=== PATIENT | male | born 1955 | race Caucasian/White ===

== ENCOUNTER 2024-10-19 11:59 | Emergency (ER) | payer MEDICARE, SELFPAY ==
[2024-10-19] VITALS (10 sets, daily range): BP systolic 192–240; BP diastolic 85–118; PULSE 83–111; TEMP 36.8; O2SAT 94–100; BMI 33.3
--- NOTE | 2024-10-19 | XR_ITS ---
The [address] [address] Patient Name: HORACIO JEONG MRN: [id number] date: 1955 Sex: M Assigned Patient Location: ER Current Patient Location: ED.MAIN Accession/Order Number: [id number] Exam Date: 10/19/2024 12:32 Report Date: 10/19/2024 13:02 At the request of: KALEY LINDER Procedure: XR chest 1V EXAM: XR chest 1V HISTORY: CHEST PAIN COMPARISON: Chest radiograph dated 01/11/2021. TECHNIQUE: AP erect portable view of the chest performed. FINDINGS: The trachea is midline. Stable mild prominence of the cardiac silhouette. Stable mild atheromatous calcification at the aortic arch. Hilar shadows are stable and unremarkable. There is no consolidation, pleural effusion or pulmonary vascular congestion. There is no pneumothorax there is no osseous abnormality. XR/XR chest 1V IMPRESSION: There is no acute cardiopulmonary process. Electronically authenticated by: FRANKLIN VILLARREAL Date: 10/19/2024 13:02
--- NOTE | 2024-10-19 12:32 | ED_ITS ---
HPI - Chest Pain General Chief Complaint: Chest Pain Stated Complaint: CHEST AND ARM PAIN Time Seen by Provider: 10/19/24 12:20 Source: patient and family Mode of arrival: walk-in Limitations: no limitations History of Present Illness HPI narrative: This patient is here with his complaining of chest pain off and on last night. He actually had this earlier in the week and was a patient in a different emergency room. He was not admitted. He was worked up and told follow-up with the primary care doctor. He did follow-up with primary care doctor and advised to have some outpatient blood test done. Today the pain seemed to be a little bit worse. It lasts about 5 minutes and goes away but at one time it was so severe he was actually nauseated and vomiting. He does not have a previous history of coronary artery disease but he does hypertension. Does not have any neurological conditions. He is not any recent surgery or procedures. Medications has not been changed recently. When he arrived here, the drive from [employer] and he had some discomfort but when he got here he was not having it. Related Data Home Medications ?Medication ?Instructions ?Recorded ?Confirmed allopurinol 100 mg tablet 200 mg PO DAILY 10/19/24 10/19/24 lisinopril 20 mg tablet 20 mg PO DAILY 10/19/24 10/19/24 pantoprazole 40 mg tablet,delayed 40 mg PO DAILY 10/19/24 10/19/24 release (Protonix) Allergies Allergy/AdvReac Type Severity Reaction Status Date / Time No Known Drug Allergies Allergy Verified 10/19/24 12:05 [facility] Social History Little interest or pleasure in doing things: not at all Feeling down, depressed, or hopeless: not at all Exam Narrative Exam Narrative: Patient was seen on arrival and his initial twelve-lead EKG did not show any acute abnormalities. 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 Repeat EKG was done at that time and confirmed my suspicion that this was in fact a emma nary event. A call was then immediately placed to interventional list Dr. Hairston in [place]. With the patient's permission I did send both his EKGs to Dr. Hairston who concurs that this is a coronary syndrome. We had already started the patient on nitroglycerin, heparin and Dr. Hairston also advises Brilinta. [facility] was called. All this happened nearly immediately. Continues examination his lungs were clear with no wheeze rales or rhonchi, heart sounds are normal with no S3-S4 or murmur. Portable chest x-ray did not show any widening of the mediastinum or abnormalities of his lungs. His extremities did not show any evidence of swelling edema phlebitis or erythema. Neurological examination was intact with no focal neurological findings or deficits. Constitutional Vital Signs, click to edit/add: Last Vital Signs Temp 98.3 F 10/19/24 12:06 Pulse 83 10/19/24 12:06 Resp 20 10/19/24 12:06 BP 192/85 H 10/19/24 12:06 Pulse Ox 98 10/19/24 12:06 O2 Del Method Room Air 10/19/24 12:06 Course Vital Signs Vital signs: Vital Signs Temperature 98.3 F 10/19/24 12:06 Pulse Rate 83 10/19/24 12:06 Respiratory Rate 20 10/19/24 12:06 Blood Pressure 192/85 H 10/19/24 12:06 Pulse Oximetry 98 10/19/24 12:06 Oxygen Delivery Method Room Air 10/19/24 12:06 Temperature 98.3 F 10/19/24 12:06 Pulse Rate 83 10/19/24 12:06 Respiratory Rate 20 10/19/24 12:06 Blood Pressure 192/85 H 10/19/24 12:06 Pulse Oximetry 98 10/19/24 12:06 Oxygen Delivery Method Room Air 10/19/24 12:06 MDM - Chest Pain MDM Narrative Medical decision making narrative: During the interview process this patient had EKG changes that are consistent with acute coronary syndrome. His history was extremely suspicious. There does not appear to be evidence of a dissection at this time. Interventionalists is excepted patient for immediate transfer and [facility] has been called immediately. Patient will be started on heparin given Brilinta and aspirin. A/P defibrillation pads were placed prophylactically. It was explained to the patient and his the necessity for transfer to an acute care facility with cardiac intervention. They are in agreement. ECG Data Attestation: I personally reviewed and interpreted this ECG as follows: (Initial EKG did not show any evidence of arrhythmia or abnormal ST segments. However second EKG shows elevation inferior lateral wall.) Critical Care Time Critical Care Time Total Critical Care Time: 45 Discharge Plan Discharge Chief Complaint: Chest Pain Clinical Impression: ST elevation (STEMI) myocardial infarction Patient Disposition: [facility] Time of Disposition Decision: 12:45 Mode of Transportation: [facility] Prescriptions / Home Meds: No Action lisinopril 20 mg tablet 20 mg PO DAILY pantoprazole [Protonix] 40 mg tablet,delayed release (DR/EC) 40 mg PO DAILY allopurinol 100 mg tablet 200 mg PO DAILY Print Language: Lithuanian Referrals: Chris Levi MD [Primary Care Provider] - 1 week
[2024-10-19] MEDS: TICAGRELOR 90 MG TABLET 180 MG PO (12:38)
[2024-10-19] MEDS: ASPIRIN 81 MG TAB.CHEW 162 MG PO (12:38)
[2024-10-19] MEDS: NITROGLYCERIN IN 5 % DEXTROSE 50 MG/250 ML INFUS..BTL IV (12:39)
[2024-10-19] MEDS: HEPARIN SODIUM 25,000 UNIT/500 ML D5W IV.SOLN 20 UNIT IV (12:58)
[2024-10-19] MEDS: HEPARIN SODIUM (PORCINE) 5,000 UNIT/ML VIAL 4000 UNIT IV (12:58)
[2024-10-19 13:22] LABS: Basophils Percent Auto 0.3 % (0.2-2.0); Eosinophils Absolute Auto 0.1 10^3/uL (0.0-0.7); Eosinophils Percent Auto 1.2 % (0.9-7.0); Hematocrit 43.7 % (42.0-54.0); Hemoglobin 15.4 g/dL (14.0-18.0); Immature Granulocytes Abs Auto 0.07 10^3/uL (0.00-0.03); Immature Granulocytes Pct Auto 0.7 % (0.0-0.5); Lymphocytes Absolute Auto 1.2 10^3/uL (1.2-3.8); Lymphocytes Percent Auto 11.7 % (20.5-60.0); Mean Corpuscular HGB Conc 35.2 g/dL (29.9-35.2); Mean Corpuscular Hemoglobin 31.8 pg (25.9-34.0); Mean Corpuscular Volume 90.3 fL (80.0-94.0); Mean Platelet Volume 10.5 fL (9.5-13.5); Monocytes Absolute Auto 0.8 10^3/uL (0.3-0.8); Monocytes Percent Auto 7.8 % (1.7-12.0); Neutrophils Absolute Auto 7.8 10^3/uL (1.4-6.5); Neutrophils Percent Auto 78.3 % (43.0-75.0); Platelet Count 243 10^3/uL (150-450); Red Blood Count 4.84 10^6/uL (4.70-6.10); Red Cell Distribution Width 12.3 % (11.0-15.0)
[2024-10-19 13:32] LABS: INR 0.98; Partial Thromboplastin Time 27.8 sec (22.3-36.2); Prothrombin Time 10.4 sec (9.0-11.6)
[2024-10-19 13:37] LABS: Alanine Aminotransferase 35 U/L (16-63); Albumin Level 3.8 g/dL (3.4-5.0); Alkaline Phosphatase 52 U/L (46-116); Anion Gap 19.2; Aspartate Amino Transferase 29 U/L (15-37); BUN Creatinine Ratio 13.9; Bilirubin Total 0.8 mg/dL (0.2-1.0); Calcium 9.6 mg/dL (8.5-10.1); Carbon Dioxide 22.3 mmol/L (21.0-32.0); Chloride 96 mmol/L (98-107); Estimated GFR (African America >60 (>=60 mL/min/1.73m^2); Estimated GFR (Non-African Ame 59 (>=60 mL/min/1.73m^2); Globulin 3.9 g/dL; Glucose 152 mg/dL (74-106); Potassium 4.5 mmol/L (3.5-5.1); Sodium 133 mmol/L (136-145); Total Protein 7.7 g/dL (6.4-8.2); Troponin I High Sensitivity 51.7 pg/mL (4.0-76.1)
--- NOTE | 2024-10-19 14:59 | ECG_ITS ---
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
--- NOTE | 2024-10-19 15:00 | ECG_ITS ---
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
== END 2024-10-19 13:01 | disposition short-term general hospital (02) ==
PROVIDERS: Emergency Provider Emergency Medicine Emergency Medical Services; PCP Family Medicine
DX: I21.3 ST elevation (STEMI) myocardial infarction of unspecified site (principal); I10 Essential (primary) hypertension
CPT/HCPCS: 36415; 71045; 80053; 84484; 85025; 85610; 85730; 93005; 96365; 96375; 99285; J1644; J2305

== ENCOUNTER 2024-10-28 09:04 | Emergency (ER) | payer MEDICARE, SELFPAY ==
[2024-10-28 09:16] VITALS: BP 160/80; PULSE 90; TEMP 36.6; O2SAT 100; BMI 32.1
[2024-10-28] MEDS: HYDROCODONE/ACET 5-325 MG TABLET 1 TAB PO (11:04)
--- NOTE | 2024-10-28 11:06 | ED_ITS ---
HPI HPI - General Adult General Chief complaint: Extremity Problem, Nontraumatic Stated complaint: GOUT FLARE UP Time Seen by Provider: 10/28/24 10:26 Source: patient Mode of arrival: walk-in Limitations: physical limitation History of Present Illness HPI narrative: Patient is a 69-year-old male who is presenting to the ER today with chief complaint of bilateral great toe pain, bilateral knee discomfort, and right thumb pain. Patient was just admitted to the hospital several weeks ago at [facility] where he had a total of 6 stents placed. Patient was just discharged approximate 1 week ago, and he started taking his allopurinol again. Patient was off his allopurinol while he was at [facility]. Patient stated the last time he had a gouty flareup was approximately 1 to 2 years ago. Patient says that it usually is only 1 or 2 joints, but he feels like all his joints are flaring up at this time. Patient is very openly here for pain medication. Patient initially told me that he called his PCP Dr. Levi to get him to be seen and evaluated and he could not get in today so then he came into the ER for pain medication. At the end of patient's visit, he told me that he will call Dr. Levi to try to get an after I was going to prescribe him the medications that I did. I then asked him I thought you call Dr. Levi before he came to the ER, and he said that he did not. Either way he is not having any fever, chills, nausea or vomiting. No headache. No chest pain or shortness of breath. Patient is strictly here for arthralgia and believes that he has a gouty arthritis flareup starting. Patient is very nice along with his . Patient did tell me the story how he was at [facility] ER, then came to [facility], and that we caught his heart attack and sent on the [facility] and had 3 stents initially and then another 3 stents placed after that. Patient is very thankful to Dr. Montejo and ER staff for catching his heart attack. All systems are negative except as noted/marked. All systems reviewed and otherwise negative. Nurses note and vital signs reviewed and patient is not hypoxic. General: The patient appears well and in no apparent distress. Patient is resting comfortably on cart. Patient is not toxic, lethargic, or listless Skin: Warm, dry, no pallor noted. There is no rash noted. No petechiae, purpura. Patient does have some ecchymosis noted to his right inguinal/groin area where they did the cardiac cath, there is no palpable hematoma, no falls pseudoaneurysm, no palpable mass or hematoma, patient states the area is sore but no significant concerns at all from the patient. Patient's right wrist also has some minimal ecchymosis but no signs of any type of swelling hematoma or pseudoaneurysm. Head: Normocephalic, atraumatic Eye: Normal conjunctiva, no drainage, EOMI. PERRL Ears, Nose, Mouth, and Throat: oral mucosa is moist. Nares patent. Mouth without vesicles. Cardiovascular: Regular Rate and Rhythm, no murmur, gallop, rub Respiratory: Patient is in no distress, no accessory muscle use, lungs are clear to auscultation, no wheezing, rales or rhonchi Back: non-tender, no CVA tenderness bilaterally to percussion. No CT LS midline pain GI: no tenderness to palpation, no masses appreciated. No rebound, guarding, or rigidity noted. No distention Musculoskeletal: Patient has full range of motion of all of the extremities, patient does have some minimal redness and swelling to bilateral MTP joint, also to his right first MCP joint. Mild discomfort with flexion extension of bilateral knees. He has no areas that show any signs of septic joint. No motor, sensory, or focal neurological deficits Neurological: A&O x4, normal speech Psychiatric: Cooperative Related Data Home Medications ?Medication ?Instructions ?Recorded ?Confirmed allopurinol 100 mg tablet 200 mg PO DAILY 10/19/24 10/28/24 lisinopril 20 mg tablet 20 mg PO DAILY 10/19/24 10/28/24 pantoprazole 40 mg tablet,delayed 40 mg PO DAILY 10/19/24 10/28/24 release (Protonix) aspirin 81 mg tablet,delayed 81 mg PO DAILY 10/28/24 10/28/24 release atorvastatin 80 mg tablet 80 mg PO .EVENING 10/28/24 10/28/24 metoprolol tartrate 25 mg tablet 25 mg PO BID 10/28/24 10/28/24 nitroglycerin 0.4 mg sublingual 0.4 mg sublingual PRN CHEST PAIN 10/28/24 tablet ticagrelor 90 mg tablet (Brilinta) 90 mg PO Q12H 10/28/24 10/28/24 Previous Rx's ?Medication ?Instructions ?Recorded colchicine 0.6 mg tablet 0.6 mg PO TID #9 tabs 10/28/24 hydrocodone 5 mg-acetaminophen 325 1 tab PO Q4H PRN pain #10 tabs 10/28/24 mg tablet methylprednisolone 4 mg tablets in 4 mg PO DAILY 6 days #21 ea 10/28/24 a dose pack (Medrol (Cl[place]ton)) Allergies Allergy/AdvReac Type Severity Reaction Status Date / Time No Known Drug Allergies Allergy Verified 10/28/24 09:16 Opioid HPI Opioid Management Most Recent Opioid Data: Last Pain Scale 3 10/28/24 11:04 10/28/24 Last ED Pain Assessment 10/28/24 09:36 Last MAR Pain Assessment 10/28/24 11:04 PFSH PFSH Surgical History (Updated 10/28/24 @ 10:50 by Jorden Ledesma) H/O heart artery stent ?Z95.5 - Presence of coronary angioplasty implant and graft (ICD-10) Social History Little interest or pleasure in doing things: not at all Feeling down, depressed, or hopeless: not at all Exam Constitutional Vital Signs, click to edit/add: Last Vital Signs Temp 98 F 10/28/24 09:16 Pulse 82 10/28/24 11:09 Resp 18 10/28/24 11:09 BP 130/78 10/28/24 11:09 Pulse Ox 99 10/28/24 11:09 O2 Del Method Room Air 10/28/24 11:09 Course Vital Signs Vital signs: Vital Signs Temperature 98 F 10/28/24 09:16 Pulse Rate 90 10/28/24 09:16 Respiratory Rate 20 10/28/24 09:16 Blood Pressure 160/80 H 10/28/24 09:16 Pulse Oximetry 100 10/28/24 09:16 Temperature 98 F 10/28/24 09:16 Pulse Rate 82 10/28/24 11:09 Respiratory Rate 18 10/28/24 11:09 Blood Pressure 130/78 10/28/24 11:09 Pulse Oximetry 99 10/28/24 11:09 Oxygen Delivery Method Room Air 10/28/24 11:09 Medical Decision Making MDM Narrative Medical decision making narrative: Patient is sent home with colchicine short-term, Salter Path and Medrol Dosepak. Patient not diabetic. Patient will call Dr. Levi. Patient may have some other underlying room with have rheumatologic or orthopedic concern because he has so many different joints involved, the patient says that he is certain it is because he was off his allopurinol for a week when he was in the hospital and now that he is back on his allopurinol now it was not soon enough and is trying to stop a gouty significant attack before it starts because he has been having more pain yesterday and today. Patient thankful for help and will follow-up with PCP. Patient and agree with this plan that we have a disposition. Discharge Plan Discharge Chief Complaint: Extremity Problem, Nontraumatic Clinical Impression: Arthralgia Patient Disposition: Home, Self-Care Time of Disposition Decision: 11:01 Condition: Fair Prescriptions / Home Meds: New hydrocodone-acetaminophen 5-325 mg tablet 1 tab PO Q4H PRN (Reason: pain) Qty: 10 0RF methylprednisolone [Medrol (Cl[place])] 4 mg tablets,dose pack 4 mg PO DAILY 6 Days Qty: 21 0RF Rx Instructions: as directed colchicine 0.6 mg tablet 0.6 mg PO TID Qty: 9 0RF Rx Instructions: Take 1 tablet, repeat 1 tablet every hour, max 3 daily for gouty arthritis/joint pain No Action lisinopril 20 mg tablet 20 mg PO DAILY pantoprazole [Protonix] 40 mg tablet,delayed release (DR/EC) 40 mg PO DAILY allopurinol 100 mg tablet 200 mg PO DAILY aspirin 81 mg tablet,delayed release (DR/EC) 81 mg PO DAILY atorvastatin 80 mg tablet 80 mg PO .EVENING metoprolol tartrate 25 mg tablet 25 mg PO BID nitroglycerin 0.4 mg tablet, sublingual 0.4 mg sublingual PRN Brilinta 90 mg tablet 90 mg PO Q12H Rx Instructions: FOR 30 DAYS Print Language: Puerto Rican Instructions: Gout (ED), Arthralgia (ED) Additional Instructions: Follow-up with your PCP for additional pain medication if needed. Follow-up with specific sales and merchandising associate as discussed. Take Tylenol every 4 hours to help with pain. If you are having severe pain, substitute a Salter Path tablet instead of Tylenol. Do not take Tylenol and Salter Path at the same time, you may actually take too much Tylenol at 1 setting or in 1 day. Maximum Tylenol dose of Tylenol is 3000 mg a day. Referrals: Chris Levi MD [Primary Care Provider] - 1 week Discharge Date/Time: 10/28/24 11:16
[2024-10-28 11:09] VITALS: BP 130/78; PULSE 82; O2SAT 99
== END 2024-10-28 11:16 | disposition home or self-care (01) ==
PROVIDERS: Emergency Provider Emergency Medicine; PCP Family Medicine
DX: M25.572 Pain in left ankle and joints of left foot (principal); M25.571 Pain in right ankle and joints of right foot; M25.562 Pain in left knee; M25.561 Pain in right knee; M25.541 Pain in joints of right hand; Z95.5 Presence of coronary angioplasty implant and graft; I25.2 Old myocardial infarction
CPT/HCPCS: 99283

== ENCOUNTER 2024-11-29 14:06 | Outpatient (OUT) | payer MEDICARE, SELFPAY ==
--- OUTSIDE RECORDS SUMMARY | 2024-11-29 14:21 | XMS_ITS | CCD ---
Author Organization [facility] Care Team Providers Care Braille Teacher Name Role Phone Unavailable Primary Care Provider UnavailSandra Ballesteros MD Primary Care Unavailable Alonso Strong Admitting Unavailable Alonso Srtong Attending Unavailable Sandra Foster MD Primary Care Unavailable Prabhakar Meza Admitting Unavailable Prabhakar Meza Attending Unavailable Sandra Foster MD Primary Care Provider [phone] SANDRA FOSTER Attending Unavailable SANDRA FOSTER Referring Unavailable SANDRA FOSTER Primary Care Unavailable SANDRA FOSTER Primary Care Unavailable HARDEEP ESTEVES Attending Unavailable Sandra Foster MD Primary Care Provider Melva Smallwood Admitting Unavailable Melva Smallwood Attending Unavailable Dorcas Levi Primary Care Unavailable Dede Jameson Unavailable Dorcas Levi MD Primary Care Provider Poncho HEALY, [place] Unavailable Unavailable JORDEN SMALLWOOD Attending Unavailable DORCAS LEVI Primary Care Unavailable Medications Current Medications Medication Drug Class(es) Dates Sig (Normalized) Sig (Original) acetaminophen 325 mg / HYDROcodone bitartrate 5 mg oral tablet (1 source) Opioid Agonist Start: 10-28-2024 take 1 tablet by mouth every four hours as needed HYDROcodone-acetam inophen ([place]) 5-325 mg tablet Take 1 tablet by mouth every 4 hours if needed for pain. 10/28/2024 Active allopurinol 100 mg oral tablet (5 sources) Xanthine Oxidase Inhibitor Start: 10-17-2024 take 2 tablets by mouth in the morning, then take 1 tablet by mouth once daily in the morning allopurinoL (ZYLOPRIM) 100 mg tablet Indications: Gout, unspecified cause, unspecified chronicity, unspecified site TAKE 2 TABLETS BY MOUTH IN THE MORNING FOR 90 DAYS THEN TAKE 1 TABLET ONCE DAILY EVERY MORNING 180 tablet 10/17/2024 Active Start: 07-26-2023 End: 02-09-2024 allopurinoL (ZYLOPRIM) 100 m g tablet Indications: Gout, unspecified cause, unspecified chronicity, unspecified site TAKE 1 TABLET EVERY MORNING 90 tablet 2 02/09/2024 Active take 1 tablet by mora th once daily allopurinol (Zyloprim) 300 mg tablet Take 1 tablet (300 mg) by mouth once daily. Active aspirin 81 mg delayed release oral tablet (1 source) Platelet Aggregation Inhibitor, Nonsteroidal Anti-inflammatory Drug take 1 tablet by mouth once daily aspirin 81 mg EC tablet Take 1 tablet (81 mg) by mouth once daily. Active atorvastatin 80 mg oral tablet (1 source) HMG-CoA Reductase Inhibitor take 1 tablet by mouth once daily atorvastatin (Lipitor) 80 mg tablet Take 1 tablet (80 mg) by mouth once daily. Active colchicine 0.6 mg oral tablet (1 source) Start: End: take 1 tablet by mouth once daily colchicine 0.6 mg tablet Indications: Acute gout, unspecified cause, unspecified site Take 1 tablet (0.6 mg) by mouth once daily for 10 days. 10 tablet 11/27/2024 12/07/2024 Active famotidine 20 mg oral tablet (2 sources) Histamine-2 Receptor Antagonist Start: End: take 1 tablet by mouth in the morning famotidine (PEPCID) 20 mg tablet Take 1 tablet (20 mg total) by mouth in the morning for 30 days. 30 tablet 10/08/2024 11/07/2024 Active lisinopril 20 mg oral tablet (6 sources) Angiotensin Converting Enzyme Inhibitor Start: take 1 tablet by mouth in the morning lisinopriL (PRINIVIL,ZESTRIL) 20 mg tablet Indications: Primary hypertension Take 1 tablet (20 mg total) by mouth in the morning. 90 tablet 5 06/03/2024 Active Start: 03-21-2023 take 1 tablet by mora th in the morning lisinopriL (PRINIVIL,ZESTRIL) 20 mg tablet Indications: Primary hypertension Take 1 tablet (20 mg total) by mouth in the morning. 90 tablet 5 03/21/2023 Active methylPREDNISolone 4 mg oral tablet (2 sources) Corticosteroid Start: 04-25-2024 take 1 tablet by mouth in the morning methylPREDNISolone (MEDROL, SAURAV,) 4 mg tablet Take 1 tablet (4 mg total) by mouth in the morning. follow package directions. 21 tablet 04/25/2024 Active metoprolol tartrate 25 mg oral tablet (1 source) beta-Adrenergic Leydi take 1 tablet by mouth once daily metoprolol tartrate (Lopressor) 25 mg tablet Take 1 tablet (25 mg) by mouth once daily. Active naproxen 500 mg oral tablet (3 sources) Nonsteroidal Anti-inflammatory Drug Start: 05-27-2024 take 1 tablet by mouth in the morning, then take 1 tablet by mouth at mealtime naproxen (NAPROSYN) 500 mg tablet Indications: Acute myofascial strain of lumbosacral region, initial encounter Take 1 tablet (500 mg total) by mouth in the morning and 1 tablet (500 mg total) in the evening. Take with meals. 180 tablet 2 05/27/2024 Active Start: 03-21-2023 take 1 tablet by mora th in the morning, then take 1 tablet by mouth at mealtime naproxen (NAPROSYN) 500 mg tablet Indications: Acute myofascial strain of lumbosacral region, initial encounter Take 1 tablet (500 mg total) by mouth in the morning and 1 tablet (500 mg total) in the evening. Take with meals. 180 tablet 2 03/21/2023 Active nitroglycerin 0.4 mg sublingual tablet (1 source) Nitrate Vasodilator nitroglycerin (Nitrostat) 0.[address] 1 tablet (0.4 mg) under the tongue every 5 minutes if needed for chest pain. Active ondansetron 4 mg disintegrating oral tablet (2 sources) Serotonin-3 Receptor Antagonist Start: ondansetron ODT (ZOFRAN ODT) 4 mg disintegrating tablet Indications: Gastroesophageal reflux disease without esophagitis Dissolve 1 tablet (4 mg total) on tongue every 8 (eight) hours as needed for nausea for up to 10 doses. 10 tablet 10/08/2024 Active pantoprazole 40 mg delayed release oral tablet (1 source) Proton Pump Inhibitor Start: 12-14-2 024 take 1 tablet by mouth once daily before mealtime pantoprazole (ProtoNix) 40 mg EC tablet Take 1 tablet (40 mg) by mouth once daily in the morning. Take before meals. 10/19/2024 Active ticagrelor 90 mg oral tablet (1 source) take 1 tablet by mouth twice daily ticagrelor (Brilinta) 90 mg tablet Take 1 tablet (90 mg) by mouth 2 times a day. Active Completed/Discontinued Medications Medication Drug Class(es) Dates Sig (Normalized) Sig (Original) acetaminophen 325 mg / oxyCODONE hydrochloride 5 mg oral tablet (4 sources) Opioid Agonist Start: 06-14-2023 End: 07-07-2023 take 1 tablet by mouth three times daily as needed for pain oxyCODONE-acetami nophen (PERCOCET) 5-325 mg tablet Indications: Injury of left foot, initial encounter Take 1 tablet by mouth three times daily as needed for pain. 28 tablet 0 07/07/2023 Active Comment on above: Take 1 tablet by mora th three times daily as needed for pain. Problems Active Problems Problem Classification Problem Date Documented Da te Episodic/Chronic Acute myocardial infarction (6 sources) ST elevation (STEMI) myocardial infarction involving other coronary artery of inferior wall; Translations: [Myocardial infarction] Onset: 10-19-2024 11-27-2024 Chronic Alcohol-related disorders (4 sources) Alcohol dependence; Translations: [Alcohol dependence, uncomplicated] Onset: 01-27-2023 01-27-2023 Chronic Coronary atherosclerosis and other heart disease (7 sources) Coronary arteriosclerosis; Translations: [Atherosclerotic heart disease of [place] coronary artery without angina pectoris] Onset: 10-25-2024 Resolved: 10-25-2024 11-27-2024 Chronic Coronary atherosclerosis and other heart disease (5 sources) Patient post percutaneous transluminal coronary angioplasty; Translations: [Coronary angioplasty status] Onset: 10-25-2024 11-27-2024 Episodic Crushing injury or internal injury (4 sources) Crush injury of left foot; Translations: [Crushing injury of left foot, initial encounter] Onset: 08-01-2023 08-01-2023 Episodic Disorders of lipid metabolism (4 sources) Mixed hyperlipidemia; Translations: [Mixed hyperlipidemia] Onset: 10-25-2024 11-27-2024 Chronic Esophageal disorders (2 sources) Gastro-esophageal reflux disease without esophagitis; Translations: [Gastro-esophageal reflux disease without esophagitis] Onset: 10-08-2024 Chronic Essential hypertension (9 sources) Hypertensive disorder; Translations: [Essential (primary) hypertension] Onset: 01-26-2023 01-26-2023 Chronic Gout and other crystal arthropathies (9 sources) Gout; Translations: [Gout, unspecified] Onset: 01-26-2023 02-09-2024 Chronic Nonspecific chest pain (4 sources) Other chest pain; Translations: [Chest pain, unspecified] Onset: 10-08-2024 Episodic Nutritional deficiencies (1 source) Vitamin D deficiency, unspecified; Translations: [Vitamin D deficiency, unspecified] Onset: 07-24-2024 Chronic Other injuries and conditions due to external causes (2 sources) Injury of left foot; Translations: [Unspecified injury of left foot, initial encounter] 07-07-2023 Episodic Other nutritional; endocrine; and metabolic disorders (3 sources) Morbid obesity; Translations: [Morbid (severe) obesity due to excess calories] Onset: 01-26-2023 01-26-2023 Chronic Other nutritional; endocrine; and metabolic disorders (1 source) Morbid (severe) obesity due to excess calories; Translations: [Morbid (severe) obesity due to excess calories] Onset: 01-26-2023 Chronic Other nutritional; endocrine; and metabolic disorders (2 sources) Body mass index 30+ - obesity; Translations: [Body mass index (BMI) 32.0-32.9, adult] Onset: 11-27-2024 11-27-2024 Chronic Other nutritional; endocrine; and metabolic disorders (2 sources) Body mass index (BMI) 32.0-32.9, adult; Translations: [Body mass index (BMI) 32.0-32.9, adult] Onset: 11-27-2024 Chronic Other screening for suspected conditions (not mental disorders or infectious disease) (2 sources) Encounter for screening for malignant neoplasm of prostate; Translations: [Encounter for screening for malignant neoplasm of colon] Onset: 07-24-2024 Episodic Screening and history of mental health and substance abuse codes (4 sources) Ex-smoker; Translations: [Personal history of nicotine dependence] Onset: 11-27-2024 11-27-2024 Episodic Unclassified (1 source) Annual Exam Onset: 07-24-2024 Past or Other Problems Problem Classification Problem Date Documented Da te Episodic/Chronic Mood disorders (3 sources) Mood disorders Onset: 01-26-2023 Resolved: 07-24-2024 01-26-2023 Unclassified (1 source) Onset: 11-27-2024 11-27-2024 Results Test Name Value Interpretation Reference Range Facility Basic Metabolic Panelon 10-06 Anion gap [Moles/Vol] 13.2 mmol/L Normal 6.0-15.0 [facility] Comment on above: Performed By: #### C BC, BMP #### [facility] [address] [place] [address] [place] Calcium [Mass/Vol] 9.1 mg/dL Normal 8.6-10.3 [facility] Comment on above: Performed By: #### C BC, BMP #### [facility] [address] [place] [address] [place] Chloride [Moles/Vol] 104 mmol/L Normal 98-107 [facility] Comment on above: Performed By: #### C BC, BMP #### [facility] [address] [place] [address] [place] CO2 [Moles/Vol] 22.8 mmol/L Normal 21.0-31.0 [facility] Comment on above: Performed By: #### C BC, BMP #### [facility] [address] [place] [id number] [place] Creatinine [Mass/Vol] 1.05 mg/dL Normal 0.70-1.30 [facility] Comment on above: Performed By: #### C BC, BMP #### [facility] [address] [place] [address] [place] Creatinine Clr Calc Pharmacy 84.20 Normal [facility] Comment on above: Result Comment: PERF ORMED BY: [place] [address] PATHOLOGIST SENIOR SOFTWARE ANALYST AMELIA BROWN M.D. Performed By: #### C BC, BMP #### [place] [address] [place] GFR/1.73 sq M.predicted MDRD (S/P/Bld) [Vol rate/Area] mL/min/{1.73_m2} Normal [facility] Comment on above: Performed By: #### C BC, BMP #### [address] Glucose [Mass/Vol] 106 mg/dL High 70-100 [facility] Comment on above: Result Comment: [place] Glucose Reference Range is dependent on time and content of last meal. Glucose of more than 200 mg/dL in a nonstressed, ambulatory subject supports the diagnosis of Diabetes Mellitus. ADA recommended reference range Performed By: #### C BC, BMP #### [address] Potassium [Moles/Vol] 4.0 mmol/L Normal 3.5-5.1 [facility] Comment on above: Performed By: #### C BC, BMP #### [address] Sodium [Moles/Vol] 136 mmol/L Normal 136-145 [facility] Comment on above: Performed By: #### C BC, BMP #### [address] Urea nitrogen [Mass/Vol] 24 mg/dL Normal 7-25 [facility] Comment on above: Performed By: #### C BC, BMP #### [address] Complete Blood Count Auto Di ffon 10-22-2024 Basophils (Bld) [#/Vol] 0.1 10*3/uL Normal 0.0-0.2 [facility] Comment on above: Result Comment: PERF ORMED BY: [place] [address] PATHOLOGIST SENIOR SOFTWARE ANALYST AMELIA BROWN M.D. Performed By: #### C BC, BMP #### [place] [address] [place] Basophils/100 WBC (Bld) 0.5 % Normal . [facility] Comment on above: Performed By: #### C BC, BMP #### [facility] [address] [place] [address] [place] Eosinophils (Bld) [#/Vol] 0.2 10*3/uL Normal 0.0-0.45 [facility] Comment on above: Performed By: #### C BC, BMP #### [facility] [address] [place] [id number] [place] Eosinophils/100 WBC (Bld) 2.1 % Normal . [facility] Comment on above: Performed By: #### C BC, BMP #### [facility] [address] Erythrocyte distribution width (RBC) [Ratio] 13.3 % Normal 12.0-14.8 [facility] Comment on above: Performed By: #### C BC, BMP #### [address] Hematocrit (Bld) [Volume fraction] 41.1 % Normal 38.8-50.0 [facility] Comment on above: Performed By: #### C BC, BMP #### [place] [address] [place] Hemoglobin (Bld) [Mass/Vol] 14.0 g/dL Normal 13.0-17.0 [facility] Comment on above: Performed By: #### C BC, BMP #### [place] [address] [place] Lymphocytes (Bld) [#/Vol] 1.2 10*3/uL Normal 1.00-4.8 [facility] Comment on above: Performed By: #### C BC, BMP #### [place] [id number] [place] Lymphocytes/100 WBC (Bld) 11.3 % Normal . [facility] Comment on above: Performed By: #### C BC, BMP #### [address] MCH (RBC) [Entitic mass] 32.3 pg Normal 27.5-35.2 [facility] Comment on above: Performed By: #### C BC, BMP #### [address] MCV (RBC) [Entitic vol] 94.4 fL Normal 83.5-101 [facility] Comment on above: Performed By: #### C BC, BMP #### [address] Mean Corpuscular HGB Conc 34.2 g/dL Normal 32.5-35.6 [facility] Comment on above: Performed By: #### C BC, BMP #### [address] Monocytes (Bld) [#/Vol] 1.2 10*3/uL High 0.0-0.8 [facility] Comment on above: Performed By: #### C BC, BMP #### [address] Monocytes/100 WBC (Bld) 10.9 % Normal . [facility] Comment on above: Performed By: #### C BC, BMP #### [address] Neutrophils (Bld) [#/Vol] 8.1 10*3/uL High 1.8-7.7 [facility] Comment on above: Performed By: #### C BC, BMP #### [address] Neutrophils/100 WBC (Bld) 75.2 % Normal . [facility] Comment on above: Performed By: #### C BC, BMP #### [address] NRBC% 0.0 /100{WBC} Normal 0-0.5 [facility] Comment on above: Performed By: #### C BC, BMP #### [address] Platelet mean volume (Bld) [Entitic vol] 8.1 fL Normal 6.6-10.1 [facility] Comment on above: Performed By: #### C BC, BMP #### [facility] [address] [place] [id number] [facility] Platelets (Bld) [#/Vol] 213 10*3/uL Normal 150-450 [facility] Comment on above: Performed By: #### C BC, BMP #### [facility] [address] RBC (Bld) [#/Vol] 4.35 10*6/uL Normal 3.90-5.60 [facility] Comment on above: Performed By: #### C BC, BMP #### [facility] [address] [place] [id number] [facility] WBC (Bld) [#/Vol] 10.8 10*3/uL High 4.1-10.5 [facility] Comment on above: Performed By: #### C BC, BMP #### [facility] [address] ECG 12 lead ECGon 10-22-2024 ECG 12 lead ECG [facility] [place] [address] [place] [address] Electrocardiograph Report Signed Patient: Horacio Soto MR#: [id number] : 1955 Acct:[id number] Age/Sex: 69 / M ADM Date: 10/19/24 Loc: Room: [address] [place] [address] Type: DIS IN Attending Dr: Melva Smallwood DO Ordering Provider: Melva Smallwood DO Date of Service: 10/22/24 ECG/ECG 12 lead ECG: Post Angioplasty Procedure in AM Copies to: Test Reason : Blood Pressure : 133/63 mmHG Vent. Rate : 61 BPM Atrial Rate : 61 BPM P-R Int : 138 ms QRS Dur : 102 ms QT Int : 402 ms P-R-T Axes : 42 -37 81 degrees QTcB Int : 404 ms Sinus rhythm with marked sinus arrhythmia Left axis deviation Left ventricular hypertrophy with repolarization abnormality Abnormal ECG When compared with ECG of 21-Oct-2024 07:12, Vent. rate has decreased by 38 bpm Confirmed by HUSEYIN HART [facility] ([id number][facility] on 10/22/2024 3:27:50 PM Referred By: Electronically Signed By: WILFREDO WING MD [facility] Transcribed By: MUS Signed By Wilfredo Wing MD, [facility] 10/22/24 1527 Normal [facility] Troponin I High Sensitivityo n 10-22-2024 Troponin I High Sensitivity 576.8 pg/mL Off scale high 0.0-20.0 [facility] Comment on above: Result Comment: Crit ical Result : Called to and read back by: TOÑO SUMMERS at: 10/22/2024 05:36:18 by:NEPTALI PERFORMED BY: [place] [address] PATHOLOGIST SENIOR SOFTWARE ANALYST AMELIA BROWN M.D. Performed By: #### G DONNA #### Point of Care testing , Basic Metabolic Panelon 10-06 Anion gap [Moles/Vol] 16.4 mmol/L High 6.0-15.0 [facility] Comment on above: Performed By: #### C BC, BMP #### [address] Calcium [Mass/Vol] 9.8 mg/dL Normal 8.6-10.3 [facility] Comment on above: Performed By: #### C BC, BMP #### [address] Chloride [Moles/Vol] 103 mmol/L Normal 98-107 [facility] Comment on above: Performed By: #### C BC, BMP #### [address] CO2 [Moles/Vol] 21.1 mmol/L Normal 21.0-31.0 [facility] Comment on above: Performed By: #### C BC, BMP #### [address] Creatinine [Mass/Vol] 1.07 mg/dL Normal 0.70-1.30 [facility] Comment on above: Performed By: #### C BC, BMP #### [place] [address] [place] Creatinine Clr Calc Pharmacy 82.63 Normal [facility] Comment on above: Result Comment: PERF ORMED BY: [place] [address] PATHOLOGIST SENIOR SOFTWARE ANALYST AMELIA BROWN M.D. Performed By: #### C BC, BMP #### [place] [address] [place] GFR/1.73 sq M.predicted MDRD (S/P/Bld) [Vol rate/Area] mL/min/{1.73_m2} Normal [facility] Comment on above: Performed By: #### C BC, BMP #### [address] Glucose [Mass/Vol] 125 mg/dL High 70-100 [facility] Comment on above: Result Comment: [place] Glucose Reference Range is dependent on time and content of last meal. Glucose of more than 200 mg/dL in a nonstressed, ambulatory subject supports the diagnosis of Diabetes Mellitus. ADA recommended reference range Performed By: #### C BC, BMP #### [address] Potassium [Moles/Vol] 4.5 mmol/L Normal 3.5-5.1 [facility] Comment on above: Performed By: #### C BC, BMP #### [address] Sodium [Moles/Vol] 136 mmol/L Normal 136-145 [facility] Comment on above: Performed By: #### C BC, BMP #### [place] [address] [place] Urea nitrogen [Mass/Vol] 19 mg/dL Normal 7-25 [facility] Comment on above: Performed By: #### C BC, BMP #### [address] Complete Blood Count Auto Di ffon 10-21-2024 Basophils (Bld) [#/Vol] 0.1 10*3/uL Normal 0.0-0.2 [facility] Comment on above: Result Comment: PERF ORMED BY: [place] [address] PATHOLOGIST SENIOR SOFTWARE ANALYST AMELIA BROWN M.D. Performed By: #### C BC, BMP #### [address] Basophils/100 WBC (Bld) 0.8 % Normal . [facility] Comment on above: Performed By: #### C BC, BMP #### [address] Eosinophils (Bld) [#/Vol] 0.1 10*3/uL Normal 0.0-0.45 [facility] Comment on above: Performed By: #### C BC, BMP #### [address] Eosinophils/100 WBC (Bld) 0.9 % Normal . [facility] Comment on above: Performed By: #### C BC, BMP #### [address] Erythrocyte distribution width (RBC) [Ratio] 13.2 % Normal 12.0-14.8 [facility] Comment on above: Performed By: #### C BC, BMP #### [address] Hematocrit (Bld) [Volume fraction] 42.1 % Normal 38.8-50.0 [facility] Comment on above: Performed By: #### C BC, BMP #### [address] Hemoglobin (Bld) [Mass/Vol] 14.4 g/dL Normal 13.0-17.0 [facility] Comment on above: Performed By: #### C BC, BMP #### [address] Lymphocytes (Bld) [#/Vol] 1.8 10*3/uL Normal 1.00-4.8 [facility] Comment on above: Performed By: #### C BC, BMP #### [address] Lymphocytes/100 WBC (Bld) 13.4 % Normal . [facility] Comment on above: Performed By: #### C BC, BMP #### [address] MCH (RBC) [Entitic mass] 32.0 pg Normal 27.5-35.2 [facility] Comment on above: Performed By: #### C BC, BMP #### [address] MCV (RBC) [Entitic vol] 93.6 fL Normal 83.5-101 [facility] Comment on above: Performed By: #### C BC, BMP #### [address] Mean Corpuscular HGB Conc 34.2 g/dL Normal 32.5-35.6 [facility] Comment on above: Performed By: #### C BC, BMP #### [address] Monocytes (Bld) [#/Vol] 1.5 10*3/uL High 0.0-0.8 [facility] Comment on above: Performed By: #### C BC, BMP #### [address] Monocytes/100 WBC (Bld) 11.4 % Normal . [facility] Comment on above: Performed By: #### C BC, BMP #### [address] Neutrophils (Bld) [#/Vol] 9.7 10*3/uL High 1.8-7.7 [facility] Comment on above: Performed By: #### C BC, BMP #### [address] Neutrophils/100 WBC (Bld) 73.5 % Normal . [facility] Comment on above: Performed By: #### C BC, BMP #### [address] NRBC% 0.1 /100{WBC} Normal 0-0.5 [facility] Comment on above: Performed By: #### C MELISSA, BMP #### [address] Platelet mean volume (Bld) [Entitic vol] 7.9 fL Normal 6.6-10.1 [facility] Comment on above: Performed By: #### C MELISSA, BMP #### [address] Platelets (Bld) [#/Vol] 270 10*3/uL Normal 150-450 [facility] Comment on above: Performed By: #### C MELISSA, BMP #### [address] RBC (Bld) [#/Vol] 4.50 10*6/uL Normal 3.90-5.60 [facility] Comment on above: Performed By: #### C MELISSA, BMP #### [address] WBC (Bld) [#/Vol] 13.3 10*3/uL High 4.1-10.5 [facility] Comment on above: Performed By: #### C MELISSA, BMP #### [address] ECG 12 lead ECGon 10-21-2024 ECG 12 lead ECG [facility] [place] [address] [place] [address] Electrocardiograph Report Signed Patient: Horacio Soto MR#: [id number] 875 : 1955 Acct:[id number] Age/Sex: 69 / M ADM Date: 10/19/24 Loc: Room: [address] [place] [address] Type: ADM IN Attending Dr: Melva Smallwood DO Ordering Provider: Melva Smallwood DO Date of Service: 10/21/24 ECG/ECG 12 lead ECG: inflat stemi Copies to: Test Reason : Blood Pressure : 125/68 mmHG Vent. Rate : 99 BPM Atrial Rate : 99 BPM P-R Int : 142 ms QRS Dur : 96 ms QT Int : 336 ms P-R-T Axes : 52 -38 82 degrees QTcB Int : 431 ms Normal sinus rhythm Left axis deviation Left ventricular hypertrophy with repolarization abnormality Abnormal ECG When compared with ECG of 21-Oct-2024 01:20, (Unconfirmed) No significant change was found Confirmed by WILFREDO WING MD, FACC ([id number]) on 10/21/2024 12:01:24 PM Referred By: Electronically Signed By: WILFREDO WING MD [facility] Transcribed By: MUS Signed By Wilfredo Wing MD, FACC 10/21/24 1201 Normal [facility] ECG 12 lead ECG [facility] [place] [address] Electrocardiograph Report Signed Patient: Horacio Soto MR#: [id number] 875 : 1955 Acct:[id number] Age/Sex: 69 / M ADM Date: 10/19/24 Loc: Room: [address] [place] [address] Type: DIS IN Attending Dr: Melva Smallwood DO Ordering Provider: Melva Smallwood DO Date of Service: 10/21/24 ECG/ECG 12 lead ECG: prn nursing routine Copies to: Test Reason : Blood Pressure : 157/74 mmHG Vent. Rate : 67 BPM Atrial Rate : 67 BPM P-R Int : 138 ms QRS Dur : 98 ms QT Int : 386 ms P-R-T Axes : 45 -29 65 degrees QTcB Int : 407 ms Normal sinus rhythm with sinus arrhythmia Moderate voltage criteria for LVH, may be normal variant Borderline ECG When compared with ECG of 20-Oct-2024 08:01, T wave inversion no longer evident in Inferior leads Confirmed by WILFREDO WING MD, FACC ([id number]) on 10/26/2024 9:23:13 AM Referred By: Electronically Signed By: WILFREDO WING MD, FACC Transcribed By: MUS Signed By Wilfredo Wing MD, [facility] 10/26/24 0923 Normal [facility] ECH echo transthoracicon ECH echo transthoracic [facility] Main [address] [address] Echocardiogram Signed Patient: Horacio Soto MR#: [id number] 875 : 1955 Acct:[id number] Age/Sex: 69 / M ADM Date: 10/19/24 Loc: Room: [address] [place] [address] Type: ADM IN Attending Dr: Melva Smallwood DO Ordering Provider: Melva Smallwood DO Date of Service: 10/20/24 ECH/ECH echo transthoracic: inferolateral stemi Copies to: Wilfredo Wing MD, FACC Melva Smallwood DO Weight: 245 lb Performed By: Myesha Harris RDCS BSA: 2.3 m2 BP: 180/84 mmHg HR: 71 Reason For Study: inferolateral stemi History: OR, HTN, Former smoker Interpretation Summary The left ventricular size, thickness and function are normal Ejection Fraction = 60-65%. A variety of Doppler measurements indicate impaired left ventricular relaxation, which is associated with grade I/IV or mild diastolic dysfunction. The left ventricular wall motion is normal. There is no prior echocardiogram noted for this patient. Procedure/Quality: A two-dimensional transthoracic echocardiogram with color flow, Doppler and injection of contrast agent Definity was performed. The study was technically good in quality. There is no prior echocardiogram noted for this patient. Left Ventricle: The left ventricular size, thickness and function are normal. Ejection Fraction = 60-65%. A variety of Doppler measurements indicate impaired left ventricular relaxation, which is associated with grade I/IV or mild diastolic dysfunction. The left ventricular wall motion is normal. Left Atrium: The left atrium appears normal in size. The atrial septum appears normal. Right Atrium: The right atrium appears normal in size. Right Ventricle: The right ventricle is normal in size and function. Aortic Valve: The aortic valve is mildly sclerotic. Mitral Valve: The mitral valve is mildly sclerotic. Tricuspid Valve: The tricuspid valve is normal in structure. Pulmonic Valve: The pulmonic valve is not well visualized. Arteries: The aortic root is normal size. Pericardium/Pleura: No pericardial effusion seen. There is no pleural effusion. IVC/Hepatic Veins: The IVC is normal in size with an inspiratory collapse of greater then 50%, suggesting normal right atrial pressure. Miscellaneous: No thrombus, vegetation or mass is seen. Measurements with Normals IVSd: 1.1 cm (0.7-1.1 cm)LVIDd: 4.4 cm (3.7-5.4 cm) LVPWd: 1.0 cm (0.7-1.1 cm)LVIDs: 2.3 cm (2.3-3.6 cm) LA dimension: 3.7 cm (2.3-4.0 cm)Ao root diam: 3.3 cm(2.0-3.6 cm) asc Aorta Diam: 2.9 cm(2.1-3.4cm) Doppler with Normals RVSP(TR): 24.5 mmHg (18-35mmHg) LV V1 max: 107.0 cm/sec (0.7-1.7m/s)MV E max delonte: 68.3 cm/sec(0.8-1.3m/s) MV A max delonte: 122.0 cm/sec(0.0-0.0m/s) MV E/A: 0.56 (<1.5) MMode/2D Measurements Calculations RVDd: 3.5 cm FS: 47.7 % Ao root area: LVOT diam: 2.0 cm TAPSE: 2.3 cm EDV(Teich): 8.6 cm2 LVOT area: 3.1 cm2 RV S Delonte: 87.7 ml 10.6 cm/sec ESV(Teich): 18.1 ml EF(Teich): 79.3 % __ LVLd ap4: 8.2 cm SV(MOD-sp4): LAV(MOD-sp4): LA A2 area: 25.8 cm2 EDV(MOD-sp4): 69.7 ml 65.3 ml 128.0 ml LAV(MOD-sp2): LA A4 area: 23.7 cm2 LVLs ap4: 6.8 cm 76.8 ml LA length (vol): ESV(MOD-sp4): 6.7 cm 58.3 ml LA vol: 77.2 ml EF(MOD-sp4): 54.5 % LA vol index: 33.6 ml/m2 Doppler Measurements Calculations MV dec time: E/E' lat: 6.0 MV dec slope: Ao V2 max: 0.22 sec E/E' med: 11.6 152.0 cm/sec 309.0 cm/sec2 Ao max P.2 mmHg Ao mean P.0 mmHg Ao V2 mean: 113.0 cm/sec Ao V2 VTI: 30.9 cm ANSHU(I,D): 2.3 cm2 ANSHU(V,D): 2.2 cm2 __ LV V1 max PG: TV max PG: TR max delonte: 4.6 mmHg 22.0 mmHg 232.0 cm/sec LV V1 mean PG: TR max P.5 mmHg 2.0 mmHg RAP systole: 3.0 mmHg LV V1 mean: 69.6 cm/sec LV V1 VTI: 22.8 cm Transcribed By: CINTIA Performed At: 10/21/24 1245 Signed By: Wilfredo Wing MD, [facility] 10/21/24 1847 Normal [facility] Glucose Poct Glucometerson 1 12-22-2023 Glucose [Mass/Vol] 124 mg/dL Normal [facility] Comment on above: Result Comment: [place] Glucose Reference Range is dependent on time and content of last meal. Glucose of more than 200 mg/dL in a nonstressed, ambulatory subject supports the diagnosis of Diabetes Mellitus. PERFORMED BY: [facility] Cristino [place] [address] PATHOLOGIST SENIOR SOFTWARE ANALYST AMELIA BROWN M.D. Performed By: #### G LULS #### Point of Care testing , Troponin I High Sensitivityo n 10-21-2024 Troponin I High Sensitivity 868.9 pg/mL Off scale high 0.0-20.0 [facility] Comment on above: Result Comment: Crit ical Result : Called to and read back by: TOÑO SUMMERS at: 10/21/2024 02:42:46 by:NEPTALI PERFORMED BY: [facility] [address] [place] [address] PATHOLOGIST SENIOR SOFTWARE ANALYST AMELIA BROWN M.D. Performed By: #### H S TROP #### [address] Basic Metabolic Panelon 12- Anion gap [Moles/Vol] 14.5 mmol/L Normal 6.0-15.0 [facility] Comment on above: Performed By: #### C BC, BMP #### [address] Calcium [Mass/Vol] 9.7 mg/dL Normal 8.6-10.3 [facility] Comment on above: Performed By: #### C BC, BMP #### [address] Chloride [Moles/Vol] 102 mmol/L Normal 98-107 [facility] Comment on above: Performed By: #### C BC, BMP #### [address] CO2 [Moles/Vol] 22.9 mmol/L Normal 21.0-31.0 [facility] Comment on above: Performed By: #### C BC, BMP #### [address] Creatinine [Mass/Vol] 0.95 mg/dL Normal 0.70-1.30 [facility] Comment on above: Performed By: #### C BC, BMP #### [place] [address] [place] Creatinine Clr Calc Pharmacy 93.82 Normal [facility] Comment on above: Performed By: #### C BC, BMP #### [place] [address] [place] GFR/1.73 sq M.predicted MDRD (S/P/Bld) [Vol rate/Area] mL/min/{1.73_m2} Normal [facility] Comment on above: Performed By: #### C BC, BMP #### [address] Glucose [Mass/Vol] 119 mg/dL High 70-100 [facility] Comment on above: Result Comment: [place] Glucose Reference Range is dependent on time and content of last meal. Glucose of more than 200 mg/dL in a nonstressed, ambulatory subject supports the diagnosis of Diabetes Mellitus. ADA recommended reference range Performed By: #### C BC, BMP #### [address] Potassium [Moles/Vol] 4.4 mmol/L Normal 3.5-5.1 [facility] Comment on above: Performed By: #### C BC, BMP #### [address] Sodium [Moles/Vol] 135 mmol/L Low 136-145 [facility] Comment on above: Performed By: #### C BC, BMP #### [address] Urea nitrogen [Mass/Vol] 17 mg/dL Normal 7-25 [facility] Comment on above: Performed By: #### C BC, BMP #### [address] Complete Blood Count Auto Di ffon 10-20-2024 Basophils (Bld) [#/Vol] 0.1 10*3/uL Normal 0.0-0.2 [facility] Comment on above: Result Comment: PERF ORMED BY: [place] [address] PATHOLOGIST SENIOR SOFTWARE ANALYST AMELIA BROWN M.D. Performed By: #### C BC, BMP #### [place] [address] [place] Basophils/100 WBC (Bld) 0.5 % Normal . [facility] Comment on above: Performed By: #### C BC, BMP #### [address] Eosinophils (Bld) [#/Vol] 0.0 10*3/uL Normal 0.0-0.45 [facility] Comment on above: Performed By: #### C BC, BMP #### [address] Eosinophils/100 WBC (Bld) 0.3 % Normal . [facility] Comment on above: Performed By: #### C BC, BMP #### [address] Erythrocyte distribution width (RBC) [Ratio] 13.5 % Normal 12.0-14.8 [facility] Comment on above: Performed By: #### C BC, BMP #### [address] Hematocrit (Bld) [Volume fraction] 40.3 % Normal 38.8-50.0 [facility] Comment on above: Performed By: #### C BC, BMP #### [address] Hemoglobin (Bld) [Mass/Vol] 13.9 g/dL Normal 13.0-17.0 [facility] Comment on above: Performed By: #### C BC, BMP #### [address] Lymphocytes (Bld) [#/Vol] 0.9 10*3/uL Low 1.00-4.8 [facility] Comment on above: Performed By: #### C BC, BMP #### [address] Lymphocytes/100 WBC (Bld) 7.3 % Normal . [facility] Comment on above: Performed By: #### C BC, BMP #### [address] MCH (RBC) [Entitic mass] 32.1 pg Normal 27.5-35.2 [facility] Comment on above: Performed By: #### C BC, BMP #### [address] MCV (RBC) [Entitic vol] 93.2 fL Normal 83.5-101 [facility] Comment on above: Performed By: #### C BC, BMP #### [address] Mean Corpuscular HGB Conc 34.5 g/dL Normal 32.5-35.6 [facility] Comment on above: Performed By: #### C BC, BMP #### [address] Monocytes (Bld) [#/Vol] 1.1 10*3/uL High 0.0-0.8 [facility] Comment on above: Performed By: #### C BC, BMP #### [address] Monocytes/100 WBC (Bld) 9.2 % Normal . [facility] Comment on above: Performed By: #### C BC, BMP #### [address] Neutrophils (Bld) [#/Vol] 9.9 10*3/uL High 1.8-7.7 [facility] Comment on above: Performed By: #### C BC, BMP #### [address] Neutrophils/100 WBC (Bld) 82.7 % Normal . [facility] Comment on above: Performed By: #### C BC, BMP #### [address] NRBC% 0.1 /100{WBC} Normal 0-0.5 [facility] Comment on above: Performed By: #### C BC, BMP #### [address] Platelet mean volume (Bld) [Entitic vol] 8.2 fL Normal 6.6-10.1 [facility] Comment on above: Performed By: #### C BC, BMP #### [address] Platelets (Bld) [#/Vol] 257 10*3/uL Normal 150-450 [facility] Comment on above: Performed By: #### C BC, BMP #### [address] RBC (Bld) [#/Vol] 4.33 10*6/uL Normal 3.90-5.60 [facility] Comment on above: Performed By: #### C BC, BMP #### [address] WBC (Bld) [#/Vol] 12.0 10*3/uL High 4.1-10.5 [facility] Comment on above: Performed By: #### C BC, BMP #### [address] Basophils (Bld) [#/Vol] 0.1 10*3/uL Normal 0.0-0.2 [facility] Comment on above: Result Comment: PERF ORMED BY: [place] [address] PATHOLOGIST SENIOR SOFTWARE ANALYST AMELIA BROWN M.D. Performed By: #### G LULS #### Point of Care testing , Basophils/100 WBC (Bld) 0.7 % Normal . [facility] Comment on above: Performed By: #### G LULS #### Point of Care testing , Eosinophils (Bld) [#/Vol] 0.1 10*3/uL Normal 0.0-0.45 [facility] Comment on above: Performed By: #### G LULS #### Point of Care testing , Eosinophils/100 WBC (Bld) 0.4 % Normal . [facility] Comment on above: Performed By: #### G LULS #### Point of Care testing , Erythrocyte distribution width (RBC) [Ratio] 13.2 % Normal 12.0-14.8 [facility] Comment on above: Performed By: #### G LULS #### Point of Care testing , Hematocrit (Bld) [Volume fraction] 42.8 % Normal 38.8-50.0 [facility] Comment on above: Performed By: #### G LULS #### Point of Care testing , Hemoglobin (Bld) [Mass/Vol] 14.6 g/dL Normal 13.0-17.0 [facility] Comment on above: Performed By: #### G LULS #### Point of Care testing , Lymphocytes (Bld) [#/Vol] 1.2 10*3/uL Normal 1.00-4.8 [facility] Comment on above: Performed By: #### G LULS #### Point of Care testing , Lymphocytes/100 WBC (Bld) 10.3 % Normal . [facility] Comment on above: Performed By: #### G LULS #### Point of Care testing , MCH (RBC) [Entitic mass] 31.9 pg Normal 27.5-35.2 [facility] Comment on above: Performed By: #### G LULS #### Point of Care testing , MCV (RBC) [Entitic vol] 93.6 fL Normal 83.5-101 [facility] Comment on above: Performed By: #### G LULS #### Point of Care testing , Mean Corpuscular HGB Conc 34.1 g/dL Normal 32.5-35.6 [facility] Comment on above: Performed By: #### G LULS #### Point of Care testing , Monocytes (Bld) [#/Vol] 1.2 10*3/uL High 0.0-0.8 [facility] Comment on above: Performed By: #### G LULS #### Point of Care testing , Monocytes/100 WBC (Bld) 9.9 % Normal . [facility] Comment on above: Performed By: #### G LULS #### Point of Care testing , Neutrophils (Bld) [#/Vol] 9.3 10*3/uL High 1.8-7.7 [facility] Comment on above: Performed By: #### G LULS #### Point of Care testing , Neutrophils/100 WBC (Bld) 78.7 % Normal . [facility] Comment on above: Performed By: #### G LULS #### Point of Care testing , NRBC% 0.0 /100{WBC} Normal 0-0.5 [facility] Comment on above: Performed By: #### G LULS #### Point of Care testing , Platelet mean volume (Bld) [Entitic vol] 7.9 fL Normal 6.6-10.1 [facility] Comment on above: Performed By: #### G LULS #### Point of Care testing , Platelets (Bld) [#/Vol] 252 10*3/uL Normal 150-450 [facility] Comment on above: Performed By: #### G LULS #### Point of Care testing , RBC (Bld) [#/Vol] 4.57 10*6/uL Normal 3.90-5.60 [facility] Comment on above: Performed By: #### G LULS #### Point of Care testing , WBC (Bld) [#/Vol] 11.9 10*3/uL High 4.1-10.5 [facility] Comment on above: Performed By: #### G LULS #### Point of Care testing , Comprehensive Metabolic Pane van 10-20-2024 Albumin [Mass/Vol] 4.4 g/dL Normal 3.5-5.7 [facility] Comment on above: Performed By: #### G MARELYLS #### Point of Care testing , Albumin/Globulin [Mass ratio] 1.5 {ratio} Normal [facility] Comment on above: Performed By: #### G LULS #### Point of Care testing , ALP [Catalytic activity/Vol] 37 U/L Normal 34-104 [facility] Comment on above: Performed By: #### G LULS #### Point of Care testing , ALT [Catalytic activity/Vol] 23 U/L Normal 7-52 [facility] Comment on above: Performed By: #### G LULS #### Point of Care testing , Anion gap [Moles/Vol] 16.1 mmol/L High 6.0-15.0 [facility] Comment on above: Performed By: #### G LULS #### Point of Care testing , AST [Catalytic activity/Vol] 23 U/L Normal 13-39 [facility] Comment on above: Performed By: #### G LULS #### Point of Care testing , Bilirubin [Mass/Vol] 0.8 mg/dL Normal 0.3-1.0 [facility] Comment on above: Performed By: #### G LULS #### Point of Care testing , Calcium [Mass/Vol] 9.7 mg/dL Normal 8.6-10.3 [facility] Comment on above: Performed By: #### G LULS #### Point of Care testing , Chloride [Moles/Vol] 100 mmol/L Normal 98-107 [facility] Comment on above: Performed By: #### G LULS #### Point of Care testing , CO2 [Moles/Vol] 22.3 mmol/L Normal 21.0-31.0 [facility] Comment on above: Performed By: #### G LULS #### Point of Care testing , Creatinine [Mass/Vol] 1.01 mg/dL Normal 0.70-1.30 [facility] Comment on above: Performed By: #### G LULS #### Point of Care testing , Creatinine Clr Calc Pharmacy 88.24 Normal [facility] Comment on above: Performed By: #### G LULS #### Point of Care testing , GFR/1.73 sq M.predicted MDRD (S/P/Bld) [Vol rate/Area] mL/min/{1.73_m2} Normal [facility] Comment on above: Performed By: #### G LULS #### Point of Care testing , Globulin (S) [Mass/Vol] 3.0 g/dL Normal [facility] Comment on above: Performed By: #### G LULS #### Point of Care testing , Glucose [Mass/Vol] 121 mg/dL High 70-100 [facility] Comment on above: Result Comment: [place] Glucose Reference Range is dependent on time and content of last meal. Glucose of more than 200 mg/dL in a nonstressed, ambulatory subject supports the diagnosis of Diabetes Mellitus. ADA recommended reference range Performed By: #### G LULS #### Point of Care testing , Potassium [Moles/Vol] 4.4 mmol/L Normal 3.5-5.1 [facility] Comment on above: Performed By: #### G LULS #### Point of Care testing , Protein [Mass/Vol] 7.4 g/dL Normal 6.4-8.9 [facility] Comment on above: Performed By: #### G LULS #### Point of Care testing , Sodium [Moles/Vol] 134 mmol/L Low 136-145 [facility] Comment on above: Performed By: #### G LULS #### Point of Care testing , Urea nitrogen [Mass/Vol] 17 mg/dL Normal 7-25 [facility] Comment on above: Performed By: #### G LULS #### Point of Care testing , ECG 12 lead ECGon 10-20-2024 ECG 12 lead ECG [facility] Main [place] [address] [place] [address] Electrocardiograph Report Signed Patient: Horacio Soto MR#: [id number] 875 : 1955 Acct:[id number] Age/Sex: 69 / M ADM Date: 10/19/24 Loc: Room: [address] [place] [address] Type: ADM IN Attending Dr: Melva Smallwood DO Ordering Provider: Melva Smallwood DO Date of Service: 10/20/24 ECG/ECG 12 lead ECG: Post Angioplasty Procedure in AM Copies to: Test Reason : Blood Pressure : 180/82 mmHG Vent. Rate : 82 BPM Atrial Rate : 82 BPM P-R Int : 142 ms QRS Dur : 98 ms QT Int : 378 ms P-R-T Axes : 53 -41 18 degrees QTcB Int : 441 ms Normal sinus rhythm with sinus arrhythmia Left axis deviation Moderate voltage criteria for LVH, may be normal variant Abnormal ECG When compared with ECG of 20-Oct-2024 02:12, (Unconfirmed) ST depression has replaced ST elevation in Inferior leads T wave inversion now evident in Inferior leads T wave amplitude has decreased in Anterior leads T wave inversion no longer evident in Lateral leads Confirmed by CLEMENTE BAILEY MD ([id number]) on 10/20/2024 1:09:42 PM Referred By: Electronically Signed By: CLEMENTE BAILEY MD Transcribed By: MUS Signed By Clemente Bailey MD 1 12/21/23 1309 Normal [facility] ECG 12 lead ECG [facility] Main [place] [id number] Electrocardiograph Report Signed Patient: Horacio Soto MR#: [id number] 875 : 1955 Acct:[id number] Age/Sex: 69 / M ADM Date: 10/19/24 Loc: 4C Room: [address] [place] [address] Type: ADM IN Attending Dr: Melva Smallwood DO Ordering Provider: Melva Smallwood DO Date of Service: 10/20/24 ECG/ECG 12 lead ECG: pt evauation Copies to: Test Reason : Blood Pressure : 199/93 mmHG Vent. Rate : 78 BPM Atrial Rate : 78 BPM P-R Int : 152 ms QRS Dur : 96 ms QT Int : 380 ms P-R-T Axes : 58 -22 91 degrees QTcB Int : 433 ms Normal sinus rhythm Left ventricular hypertrophy with repolarization abnormality ST elevation, consider inferolateral injury or acute infarct ACUTE OR / STEMI Consider right ventricular involvement in acute inferior infarct Abnormal ECG When compared with ECG of 20-Oct-2024 01:36, No significant change was found Confirmed by CLEMENTE BAILEY MD ([id number]) on 10/20/2024 5:22:45 PM Referred By: Electronically Signed By: CLEMENTE BAILEY MD Transcribed By: MUS Signed By Clemente Bailey MD 1 12/21/[address] [facility] ECG 12 lead ECG [facility] Main [place] [id number] Electrocardiograph Report Signed Patient: Horacio Soto MR#: [id number] 875 : 1955 Acct:[id number] Age/Sex: 69 / M ADM Date: 10/19/24 Loc: 4C Room: [address] [place] [address] Type: ADM IN Attending Dr: Melva Smallwood DO Ordering Provider: Melva Smallwood DO Date of Service: 10/20/24 ECG/ECG 12 lead ECG: inflat stemi Copies to: Test Reason : Blood Pressure : 158/76 mmHG Vent. Rate : 74 BPM Atrial Rate : 74 BPM P-R Int : 154 ms QRS Dur : 102 ms QT Int : 384 ms P-R-T Axes : 61 18 95 degrees QTcB Int : 426 ms Normal sinus rhythm ST elevation, consider inferior injury or acute infarct ACUTE OR / STEMI Consider right ventricular involvement in acute inferior infarct Abnormal ECG When compared with ECG of 20-Oct-2024 01:35, (Unconfirmed) QRS axis shifted right ST elevation now present in Inferior leads T wave inversion more evident in Lateral leads Confirmed by CLEMENTE BAILEY MD ([id number]) on 10/20/2024 1:09:30 PM Referred By: Electronically Signed By: CLEMENTE BAILEY MD Transcribed By: MUS Signed By Clemente Bailey MD 1 12/21/23 1309 Normal [facility] Lipid Panelon 10-20-2024 Cholesterol [Mass/Vol] 130 mg/dL Low 140-200 [facility] Comment on above: Result Comment: Chol less than 200 mg/dl low risk Chol 201-239 mg/dl borderline risk Chol 240 mg/dl and greater high risk Performed By: #### G LULS #### Point of Care testing , Cholesterol in HDL [Mass/Vol] 74 mg/dL Normal 23-92 [facility] Comment on above: Result Comment: HDL CHOL ATP-III CLASSIFICATION Cardiovascular Risk HDL > or equal to 60 mg/dL LOW HDL < 40 mg/dL HIGH Performed By: #### G LULS #### Point of Care testing , Cholesterol.total/Ch olesterol in HDL [Mass ratio] 1.8 {ratio} Normal <5.0 [facility] Comment on above: Result Comment: PERF ORMED BY: [facility] [address] [place] [address] PATHOLOGIST SENIOR SOFTWARE ANALYST AMELIA BROWN M.D. Performed By: #### G LULS #### Point of Care testing , LDL Cholesterol,Calculat ed 42 mg/dL Normal 0-100 [facility] Comment on above: Result Comment: LDL ATP III CLASSIFICATION LDL less than 100 mg/dL Optimal LDL 100-129 mg/dL Near or above optimal LDL 130-159 mg/dL Borderline high LDL 160-189 mg/dL High LDL greater than 189 mg/dL Very high Performed By: #### G LULS #### Point of Care testing , Triglyceride w/Reflex 68 mg/dL Normal 0-149 [facility] Comment on above: Result Comment: TRIG ATP III CLASSIFICATION TRIG less than 150 mg/dL Normal TRIG 150-199 mg/dL Borderline high TRIG 200-500 mg/dL High TRIG greater than 500 mg/dL Very high Standard traceable to the Center for Disease Conrtrol and Prevention (CDC) test method. Performed By: #### G LULS #### Point of Care testing , VLDL CHOLESTEROL 13 mg/dL Normal [facility] Comment on above: Performed By: #### G LULS #### Point of Care testing , Magnesiumon 10-20-2024 Magnesium [Mass/Vol] 1.8 mg/dL Low 1.9-2.7 [facility] Comment on above: Result Comment: PERF ORMED BY: [place] [address] PATHOLOGIST SENIOR SOFTWARE ANALYST AMELIA BROWN M.D. Performed By: #### G LULS #### Point of Care testing , Troponin I High Sensitivityo n 10-20-2024 Troponin I High Sensitivity 738.9 pg/mL Off scale high 0.0-20.0 [facility] Comment on above: Result Comment: Crit ical Result : Called to and read back by: SENDY THURMAN at: 10/20/2024 05:35:02 by:[id number] PERFORMED BY: [facility] [address] [place] [address] PATHOLOGIST SENIOR SOFTWARE ANALYST AMELIA BROWN M.D. Performed By: #### G LULS #### Point of Care testing , Troponin I High Sensitivity 652.2 pg/mL Off scale high 0.0-20.0 [facility] Comment on above: Result Comment: Crit ical Result : Called to and read back by: SENDY THURMAN at: 10/20/2024 03:06:12 by:[id number] PERFORMED BY: [address] [address] PATHOLOGIST SENIOR SOFTWARE ANALYST AMELIA BROWN M.D. Performed By: #### G LULS #### Point of Care testing , ECG 12 lead ECGon 10-19-2024 ECG 12 lead ECG [facility] Main [address] [address] Electrocardiograph Report Signed Patient: Horacio Soto MR#: [id number] : 1955 Acct:[id number] Age/Sex: 69 / M ADM Date: 10/19/24 Loc: Room: [address] [place] [address] Type: ADM IN Attending Dr: Melva Smallwood DO Ordering Provider: Melva Smallwood DO Date of Service: 10/19/24 ECG/ECG 12 lead ECG: Post Angioplasty Procedure Copies to: Test Reason : Blood Pressure : 136/72 mmHG Vent. Rate : 70 BPM Atrial Rate : 70 BPM P-R Int : 150 ms QRS Dur : 102 ms QT Int : 378 ms P-R-T Axes : 73 -34 -7 degrees QTcB Int : 408 ms Normal sinus rhythm Left axis deviation Marked T wave abnormality, consider inferior ischemia Abnormal ECG No previous ECGs available Confirmed by CLEMENTE BAILEY MD ([id number]) on 10/20/2024 1:09:11 PM Referred By: Electronically Signed By: CLEMENTE BAILEY MD Transcribed By: MUS Signed By Clemente Bailey MD 1 12/21/23 1309 Normal [facility] Troponin I High Sensitivityo n 10-19-2024 Troponin I High Sensitivity 149.0 pg/mL Off scale high 0.0-20.0 [facility] Comment on above: Result Comment: Crit ical Result : Called to and read back by: SENDY THURMAN at: 10/19/2024 21:36:24 by:[id number] PERFORMED BY: [place] [id number] PATHOLOGIST SENIOR SOFTWARE ANALYST AMELIA BROWN M.D. Performed By: #### H S TROP #### [address] Troponin I High Sensitivity 120.2 pg/mL Off scale high 0.0-20.0 [facility] Comment on above: Result Comment: Crit ical Result : Called to and read back by: DEREK CORREA at: 10/19/2024 20:01:05 by:[id number] PERFORMED BY: [id number] PATHOLOGIST SENIOR SOFTWARE ANALYST AMELIA BROWN M.D. Performed By: #### C BC, BMP #### [address] Troponin I High Sensitivity 107.3 pg/mL Off scale high 0.0-20.0 [facility] Comment on above: Result Comment: Crit ical Result : Called to and read back by: ADAMA GOMEZ at: 10/19/2024 17:41:39 by:ALIYAH PERFORMED BY: [place] [id number] PATHOLOGIST SENIOR SOFTWARE ANALYST AMELIA BROWN M.D. Performed By: #### C BC, BMP #### [address] Troponin I High Sensitivity 94.8 pg/mL Off scale high 0.0-20.0 [facility] Comment on above: Result Comment: Crit ical Result : Called to and read back by: ADAMA GOMEZ at: 10/19/2024 16:21:23 by:ALIYAH PERFORMED BY: [place] [address] PATHOLOGIST SENIOR SOFTWARE ANALYST AMELIA BROWN M.D. Performed By: #### C BC, BMP #### [address] CBC AND AUTO DIFFon 10-08-20 24 ABSOLUTE BASOPHIL 0.1 X10E9/L Normal 0.0-0.2 [facility] Comment on above: Performed By: #### C BCA, CMP, 3040-3, 62608-4, 16060-0, THYR, 35372-9 #### [facility] ([id number]) [address] [place] [address] ABSOLUTE NEUTROPHIL 5.6 X10E9/L Normal 1.5-6.6 [facility] Comment on above: Performed By: #### C BCA, CMP, 3040-3, 31485-3, 33750-6, THYR, 59240-5 #### [facility] ([id number]) [address] [place] [address] Basophils/100 WBC (Bld) 0.7 % Normal [facility] Comment on above: Performed By: #### C BCA, CMP, 3040-3, 89077-1, 26555-4, THYR, 30356-7 #### [facility] ([id number]) [address] [place] [address] Eosinophils (Bld) [#/Vol] 0.3 10*3/uL Normal 0.0-0.4 [facility] Comment on above: Performed By: #### C BCA, CMP, 3040-3, 83158-0, 11011-9, THYR, 81895-2 #### [facility] ([id number]) [address] [place] [address] Eosinophils/100 WBC (Bld) 3.7 % Normal [facility] Comment on above: Performed By: #### C BCA, CMP, 3040-3, 73223-3, 24568-2, THYR, 96189-2 #### [facility] ([id number]) [address] [place] [address] Erythrocyte distribution width (RBC) [Ratio] 13.6 % Normal 11.5-15.0 [facility] Comment on above: Performed By: #### C BCA, CMP, 3040-3, 88044-1, 09529-4, THYR, 65972-1 #### [facility] ([id number]) [address] [place] [address] 27464 Hematocrit (Bld) [Volume fraction] 43.6 % Normal 39-49 [facility] Comment on above: Performed By: #### C BCA, CMP, 3040-3, 48545-4, 67870-4, THYR, 86570-0 #### [facility] ([id number]) [address] [place] [address] Hemoglobin (Bld) [Mass/Vol] 15.0 g/dL Normal 13.0-17.0 [facility] Comment on above: Performed By: #### C BCA, CMP, 3040-3, 07286-9, 93466-5, THYR, 28904-4 #### [facility] ([id number]) [address] [place] [address] Lymphocytes (Bld) [#/Vol] 1.8 10*3/uL Normal 1.0-3.5 [facility] Comment on above: Performed By: #### C BCA, CMP, 3040-3, 65432-3, 37493-4, THYR, 42649-2 #### [facility] ([id number]) [address] [place] [address] Lymphocytes/100 WBC (Bld) 20.5 % Normal [facility] Comment on above: Performed By: #### C BCA, CMP, 3040-3, 71100-5, 54330-8, THYR, 57122-3 #### [facility] ([id number]) [address] [place] [address] 57666 MCH (RBC) [Entitic mass] 32.3 pg Normal 27-34 [facility] Comment on above: Performed By: #### C BCA, CMP, 3040-3, 79667-0, 12885-5, THYR, 68859-2 #### [facility] ([id number]) [address] [place] [address]32 MCHC (RBC) [Mass/Vol] 34.5 g/dL Normal 32-36 [facility] Comment on above: Performed By: #### C BCA, CMP, 3040-3, 87921-8, 22366-8, THYR, 85440-0 #### [facility] ([id number]) [address] [place] [address] 17393 MCV (RBC) [Entitic vol] 94 fL Normal 80-100 [facility] Comment on above: Performed By: #### C BCA, CMP, 3040-3, 65352-0, 34680-4, THYR, 56594-7 #### [facility] ([id number]) [address] [place] [address] Monocytes (Bld) [#/Vol] 0.8 10*3/uL Normal 0-0.9 [facility] Comment on above: Performed By: #### C BCA, CMP, 3040-3, 51882-6, 98539-2, THYR, 58052-2 #### [facility] ([id number]) [address] [place] [address]3624 Monocytes/100 WBC (Bld) 9.3 % Normal [facility] Comment on above: Performed By: #### C BCA, CMP, 3040-3, 39924-3, 97821-5, THYR, 38251-8 #### [facility] ([id number]) [address] [place] [address] Neutrophils/100 WBC (Bld) 65.8 % Normal [facility] Comment on above: Performed By: #### C BCA, CMP, 3040-3, 77521-6, 72446-4, THYR, 89068-8 #### [facility] ([id number]) [address] [place] [address] Platelet mean volume (Bld) [Entitic vol] 8.1 fL Normal 7-12 [facility] Comment on above: Performed By: #### C BCA, CMP, 3040-3, 32951-7, 43043-2, THYR, 84107-0 #### [facility] ([id number]) [address] [place] [address] 26908 Platelets (Bld) [#/Vol] 260 10*3/uL Normal 150-450 [facility] Comment on above: Performed By: #### C BCA, CMP, 3040-3, 82179-4, 90154-6, THYR, 69022-4 #### [facility] ([id number]) [address] [place] [address] 67861 RBC COUNT 4.65 X10E12/L Normal 4.10-5.70 [facility] Comment on above: Performed By: #### C BCA, CMP, 3040-3, 38865-3, 52363-6, THYR, 55356-1 #### [facility] ([id number]) [address] [place] [address]9943 WBC (Bld) [#/Vol] 8.5 10*3/uL Normal 4.0-11.0 [facility] Comment on above: Performed By: #### C BCA, CMP, 3040-3, 93042-8, 39612-9, THYR, 76406-2 #### [facility] ([id number]) [address] [place] [address] COMPREHENSIVE METABOLIC PANE Van 10-08-2024 Albumin [Mass/Vol] 4.7 g/dL Normal 3.2-5.3 [facility] Comment on above: Performed By: #### C BCA, CMP, 3040-3, 60614-0, 59904-8, THYR, 47180-1 #### [facility] ([id number]) [address] [place] [address] 41298 ALP [Catalytic activity/Vol] 44 U/L Normal 39-130 [facility] Comment on above: Performed By: #### C BCA, CMP, 3040-3, 71467-9, 54482-0, THYR, 98813-8 #### [facility] ([id number]) [address] [place] [address] 81612 ALT [Catalytic activity/Vol] 35 U/L Normal 0-40 [facility] Comment on above: Performed By: #### C BCA, CMP, 3040-3, 63689-3, 06398-8, THYR, 28736-7 #### [facility] ([id number]) [address] [place] [address] 71281 Anion gap [Moles/Vol] 10 mmol/L Normal 5-15 [facility] Comment on above: Performed By: #### C BCA, CMP, 3040-3, 50668-8, 13396-2, THYR, 09482-2 #### [facility] ([id number]) [address] [place] [address] 21538 AST [Catalytic activity/Vol] 36 U/L Normal 0-41 [facility] Comment on above: Performed By: #### C BCA, CMP, 3040-3, 14057-7, 67889-4, THYR, 08910-9 #### [facility] ([id number]) [address] [place] [address] 89605 Bilirubin [Mass/Vol] 1.3 mg/dL High 0.3-1.2 [facility] Comment on above: Result Comment: RESU LTS QUESTIONABLE DUE TO HEMOLYSIS Performed By: #### C BCA, CMP, 3040-3, 37119-0, 73738-2, THYR, 15647-8 #### [facility] ([id number]) [address] [place] [address] 03561 Calcium [Mass/Vol] 9.3 mg/dL Normal 8.5-10.5 [facility] Comment on above: Performed By: #### C BCA, CMP, 3040-3, 84319-5, 23289-7, THYR, 86006-1 #### [facility] ([id number]) [address] [place] [address] 48055 Chloride [Moles/Vol] 102 mmol/L Normal 98-109 [facility] Comment on above: Performed By: #### C BCA, CMP, 3040-3, 52187-4, 07951-1, THYR, 34801-1 #### [facility] ([id number]) [address] [place] [address] 44113 CO2 [Moles/Vol] 22 mmol/L Normal 22-32 [facility] Comment on above: Performed By: #### C BCA, CMP, 3040-3, 31865-8, 57013-2, THYR, 90241-2 #### [facility] ([id number]) [address] [place] [address] 00771 Creatinine [Mass/Vol] 1.10 mg/dL Normal 0.70-1.20 [facility] Comment on above: Result Comment: METH OD TRACEABLE TO IDMS STANDARD Performed By: #### C BCA, CMP, 3040-3, 39516-2, 45839-3, THYR, 31183-9 #### [facility] ([id number]) [address] [place] [address] 80269 GFR/1.73 sq M.predicted among non-blacks MDRD (S/P/Bld) [Vol rate/Area] 73 mL/min/{1.73_m2} Normal >59 [facility] Comment on above: Result Comment: Reported eGFR is based on the CKD-EPI 2020 equation that does not use a race coefficient. Performed By: #### C BCA, CMP, 3040-3, 42958-6, 03274-1, THYR, 29350-9 #### [facility] ([id number]) [address] [place] [address] 27164 Glucose [Mass/Vol] 121 mg/dL High 65-99 [facility] Comment on above: Performed By: #### C BCA, CMP, 3040-3, 81480-7, 31327-9, THYR, 68417-7 #### [facility] ([id number]) [address] [place] [address] 10475 Potassium [Moles/Vol] 5.0 mmol/L Normal 3.5-5.0 [facility] Comment on above: Result Comment: SPEC IMEN HEMOLYZED, RESULTS INCREASED Performed By: #### C BCA, CMP, 3040-3, 08501-1, 09507-4, THYR, 18660-2 #### [facility] ([id number]) [address] [place] [address] 05003 Protein [Mass/Vol] 7.9 g/dL Normal 6.0-8.0 [facility] Comment on above: Performed By: #### C BCA, CMP, 3040-3, 68448-8, 06540-8, THYR, 52689-5 #### [facility] ([id number]) [address] [place] [address] 27348 Sodium [Moles/Vol] 134 mmol/L Normal 134-146 [facility] Comment on above: Performed By: #### C BCA, CMP, 3040-3, 59835-2, 39205-4, THYR, 45843-6 #### [facility] ([id number]) [address] [place] [address] 43385 Urea nitrogen [Mass/Vol] 24 mg/dL Normal 5-27 [facility] Comment on above: Performed By: #### C BCA, CMP, 3040-3, 84142-1, 07787-6, THYR, 72424-0 #### [facility] ([id number]) [address] [place] [address] 39065 LIPASEon 10-08-2024 Lipase [Catalytic activity/Vol] 42 U/L High 17-40 [facility] Comment on above: Performed By: #### C BCA, CMP, 3040-3, 86558-9, 69275-9, THYR, 74675-3 #### [facility] ([id number]) [address] [place] [address] 43213 MAGNESIUMon 10-08-2024 Magnesium [Mass/Vol] 2.0 mg/dL Normal 1.8-2.6 [facility] Comment on above: Performed By: #### C BCA, CMP, 3040-3, 07120-7, 35638-2, THYR, 71214-5 #### [facility] ([id number]) [address] [place] [address] 28458 Natriuretic peptide B [Mass/ Vol]on 10-08-2024 Natriuretic peptide B (Bld) [Mass/Vol] 66 pg/mL Normal <100.0 [facility] Comment on above: Performed By: #### C BCA, CMP, 3040-3, 04628-3, 32662-9, THYR, 79355-7 #### [facility] ([id number]) [address] [place] [address] 25911 THYROID PROFILEon 10-08-2024 Free T4 [Mass/Vol] 1.00 ng/dL Normal 0.61-1.60 [facility] Comment on above: Result Comment: NEW REFERENCE RANGE FOR PEDIATRIC PATIENTS Performed By: #### C BCA, CMP, 3040-3, 07770-4, 96883-1, THYR, 78902-5 #### [facility] ([id number]) [address] [place] [address] 32576 TSH 1.88 uIU/mL Normal 0.49-4.67 [facility] Comment on above: Result Comment: NEW REFERENCE RANGE FOR PEDIATRIC PATIENTS Performed By: #### C BCA, CMP, 3040-3, 68935-6, 82624-6, THYR, 17659-6 #### [facility] ([id number]) [address] [place] [address] 46432 Troponin I.cardiac High sens itivity method [Mass/Vol]on 10-08-2024 1 HOUR TROP I, HIGH SENSITIVITY 4 ng/L Normal <21 [facility] Comment on above: Performed By: #### 8 9579-7 #### [facility] ([id number]) [address] [place] [address] 24884 TROPONIN I, HIGH SENSITIVITY 5 ng/L Normal <21 [facility] Comment on above: Performed By: #### C BCA, CMP, 3040-3, 85244-5, 02486-5, THYR, 50466-0 #### [facility] ([id number]) [address] [place] [address] 34925 Coding Summaryon 07-05-2023 Coding Summary [employer] 64 DxxgcmywBCu4qHr+PGhlYWQ+ QD8EPOCqE24uxNHfjK7yN5CS TElOSywgQVBQTElOSyIgbmFt QL9wkZBlVXAv IC8+VM9sLJOnHjbbwLXfg6O6 cVV8S43kzd4jTQovmPI9BFPx HnDgmknbi6gxxSp3CRyaSvmw OyBt OBKhpJ25YFA1rR08Va19dWBx nNMjg2xbcBn5YzVcHSHjAKX9 uPinJNsdn7EbEZBvS09ywHHv c2U6 LNLzyOptoGAaIdEhcLY6lC4c PUendpiaz7rvldmaGsu9cf00 lREvp2O4oRU8N6TejzI7KJEu bGQg SgjkaYJHcI2iqehcm6rizwtp WwHuPUSyXKz2PMk1GJPbjLot WbFyCG64TEO1IWZxjnVqL2Lk LWFs oMldAxZ3v2Z2Lk2XP0ECGtls T9LXLBUWQNxdqKH+RJ31vu30 W9DaBmlsVpd1JMSoCVC3hMI5 aD0n ZNPdXMvdi1E8xCC7L7ZwmhGs xe4wq6zpKDJxDTzuC31zhXZp v5R8EISprHV1LGPwqEiyFzCx aG93 Oyc+NXAduSskl5GlAxdgr8jv r8gkgPg8KannBIRqhbLjvUkv QWT1c8RfYh6qEGJcdAH2rGM3 aD0i MrVxJjP0LBngK150FyHtuZRz LeaiB11oA8CtrHJ+PHRyPjx0 QDYifEboUM4lG9EmDINmksfk bGVm xEqjSV5mIXJponqvSJAhgA6p RWTpM9h1BiXrFbA6YYpnB8Du JXBzdhrbAo52wN6hHwDtYiS4 MGlu A5GwzjI2ONWscMGtJBtyNCR7 Z69ut6M0CKIzDSFpCJY3zJR2 vQ9mqXecpnrwwIYpkAlspgHi dGlj DGkkEKyvF220RHLtuEfwMcUv ZGluZyBEYXRlOiAgMDgvMzAv MjAyMzwvdGQ+JEFuZCK0aEil PSAn bASlFQsjDp9wtEqxtCftKA5g JNAjcqetZTWbjQ0iNFTpfPYg hHqaMG2iAQKmkvvqe352ErPv MHB0 IGUwrFIdY7JdeC2yQoVaZAZz KLTwD1IngFByIHjdJ085MLnm FfP6MCQejjUfJ0JtFWDdoRon OiB0 k9M6Hw3Vo1GvubqtE9RlmVAi DiRqAngwSTx2E1TpZfnweWY+ AN50NIGdQO48HJu4GXJ9gOle PSdi AEYiQ5GeaX7zFuWjHYZhJCYi Oyc+PHRhYmxlIHdpZHRoPScx WHVxRhSexCgtKD0nIn0xVCEf LWNv uLzyfYWtDeKal9lhBIGxNJmg WC3hfLuvS7QqxCM7WPVhw3g3 Lk05Z91gC4IwaNI+PGNvbCB3 aWR0 gS3hLuKrLaB1BVtnJ741FsDl aROqTcsrt5wbz2nqsCi6SlK7 OVOyfyMcfZwdPIV1j0QiEt21 Y29s IHdpZHRoPSIxNSUiIHZhbGln sg4efN8mKq3+IPAzvYG3lOC3 nY9rUrThYpY5SAlgG447WwRb cCIv Bechs9tuj7hgjWu8GzCeEAKn kuPnlFmkQZA7h5PrIz89J6Nu cIbmm4OzIkf8fm40eRAyy9R4 bGU9 O5VqSENgpyxhrUIaxUdaQS0q DVDjupkyBHSauT8fBWYmN9w3 OxRcCzE9KCpiC4GfdkD0JQLi bGQg BHTzeSSXdL7hfmuwq9zoaxbb LwFyPACzFTd8DSj5ERXrxWmp EyEqGDS9HsJ8LFI1hLJijY1w bGln iiyoeE9nSis+KWA4uOLcxFOT HL2oQnfjvSU+RRJaTUZ0jIsc WEhvWMVmtZ5zYGEzH9i0UwIj LjA1 ZRmiM3VrycK9VRJmdQHvMICk dPEChS6fewkng1inkeafKcUz YDPsNUa3WOq4QKFwkPgzAzJl ZWZ0 ZeX3UJA4eVPxjZ8wvCgvyxyx cO6rUjh+YyxeuItzPEK2ZNy3 O0UhUzz4DZZysBgcIM1foKKc ZGlu Wd6ibWqhtIeuPD5jXCZhvjry a529PwOvk7oxFZEebAFgXEje HZH7I31fw6I7LPHkAPGjSRJ0 dGV4 eU2llRbllaoopVUojNzbglTk pLyzHHvjSPpmK926ADTrhVpg AtDrBCq9Z9XhKig3DUMmfMlu ZT0n kWBzJDgaHd0vbDwcaVxcCX4c YPHyowaxf145HhHbv9ooNWCq bOYbKNfpZPF2L42lv6P0NXZi MDAw BAU6fEW5cJ3ymCxqlyhwhRLx fHwgtyYhsSkyPBawAHwvC800 DSYoaNssWtKkbZp4Q2ZkDzw1 ZCBz aMkvIH4qiCMyUZseMz4aeRsq iTvuWS2jCKBsdqpys170AaXa k2rgSTKrpYUaZHteBLK9K20l b3I6 BTPhHDQlAMK3tNF0rM6ekFxm bjogbGVmdDsgdmVydGljYWwt BSatE059ABTsfFusWbMupSyz bnQg WRauUNh6R7ChYgmqbED+PC90 JNWtUJ41kKNwlPWrg5wetWy5 BnDhZHIwBXN8zFsrPOror5Ud ZXIt Y54ygNTth9J2NCVvoXjzvZVt CgByvML4zJ6fGNnzronah6ig asehMuxqd9kkom06bU21O80s IHdp QWFtJCCcRRBxWGGarWljok6o wG5kWn2+ZHQlwNY9gNQ2yO4v OOTuUwB8FQdyL546NbTmsAPy Pjxj m3lxx8wfcEc9MdQ8GLHpopEk bJhcFUJ3w8XiBb25M12uLAql BCUdKLReHOVoEAUxhZytkx0e dG9w Ii8+RENghEP5fSN2jB0xChAs PaQ4DXhvE638RyLqyVDgRcnl O47pV6WdhGD+FCSbOhx2BIWs dHls NJ6tlQSdJDnbSa5aJIQ9KbPw ZiUoKAynF9EmNXQblbmlfths sYU8OMYhJMLmnH47Uj3hfJct MTBw bLCSjX0llgxvq9fgbssgImIw AKBnEXs6YWs6ZYFjhWkyPzGy FSC6PgY2VXY7qALuzI7krTzr bjog nC5lW8HrUNZufqoyUz85tJ5r FxMwUdY9BHbhEhz+XjLJY4FG CATXY0BHZbYrJseodFK+PHRk IHN0 uUkdABrkUTWieP0fCPNdD2k6 WlJbKrH9ULkmA7NeJFXpbxrm Iv04eL7bQlCcFvA6CRasZ7Ew bnQ6 RAWwyGYzVXkwFTR0X02vd6H4 ZWAuNQAdBCZ6wYE3gU0ubAdu bjogbGVmdDsgdmVydGljYWwt YWxp Z859AJCkwYaoDxYdFmH0SnR6 ABU0P0PdSga9FWBmaFofTI3e wFBoJFpyFa6xuHmjlBnzVM4s NTBp bwnhNHPovG6lTWQphJGiuUdt OB5wVNTimuomk896XjSzDEB9 BIIsfSIcP6SqdQ0jYuQnZORj MDAw X6UjvRDdDQtmV372XVhtOyO4 YCEejlBkR8XgNQAflZanQlP4 y6C3Mk42PUSQALWujsiacRZ+ PHRk HAX1wBxdCAxrZXJhwC0vRPQq Y0y3LsHgDoU9XQdsI2VbOFPm nqsiBt45aA1vJcTjOwH5FVly O2Zv srS6UJTphGZgXQgwLPU2F91h c4A6QNXtNJWsQBV5iMR0iM0s bGlnbjogbGVmdDsgdmVydGlj YWwt JZswR284AWFbiBmuUb5RKVO1 A0WqJam4YCSjyVhdDK1nzMZp ZTeaRs7ygKswqPumOB4vZFXr bjtw TBXmsO4mKMLtpNLgtGujQZ7u MUIajunih692ZfMjBFA2SDRy mFYfY8IieD9hDrUdGGEmGLUw O3Rl bHJdAZfcF348ENfhIoX9WZPh viCnG0GwXQBwoTvnGtS1w0E1 Nh1VSIsykSD+FY98nv50O7Jn Ymxl Uyc6QIZkEBC3nTA0wK9rFFFw FNmjw8H4kBD8P4WkdqFmiw1k k6cbIFSdMTexZ54bkLRpp7T5 IGVt rSX6AUMcvLslOkKkgC33Qwo+ VDYgjXjwe9XhHdomb9ghp3pg jIu3ZwUsUHLujzVpuBgpOAY6 b3Ai Bf96C13mSAluQGNmUEDtNGEu TTEeoElqjj5bwY4mQd0+PGNv bOX1kJN4eV0gGvGjMwW5HXnx Z249 VdLuvESqDbpun6piz9hjlEf7 EtNbYEAydbLssLpxYIQ9o4Cv Kc77E8BtoUkgo2GvRlj7zx52 dGQg w2C8jDC4W0ZyZLVuywcpbBLa wYtpVT4cSXQumllzGYWrzL2u ZUYhV8p4VpEgEvW1IMflB6Lt bnQ6 YZYflUWzBKEgpNPQoV9hjfyj k3yhorcpBmMnTHJiICt0LAz3 JBNxvGfxBoWmWLA4GiY2KRR1 aWNh pQ8luJmsfbvklW2fQgx+UGh5 x4vkgKIcAR8grTT2NV77CV11 iWXst9B6dOS9Y5MgOKAfuwtq cmln jBV0BIOnBGPcvL85Ny2pdUhp Zh0dYFDtRLP3ZYCdjGEuA3Fx gB2dArFjCAGsTMUnV3DrkTId YWxp P622AJzwMiQ5JGTaofQfE9Lo KAVszNqcHwT3i6H7Nc3MEW60 HR57TD55vYNuu8K2aRV4V5Zi ZGRp rhjjjqkgjEW6AAUgDWFzcK06 Fx1gySkmSd6lWJKzQXI6JACt gPHfN8VraR5sSxQuTWFaQGBc O3Rl hJGoJFxmR429EYdrCjI9LGEi alNfH9NdPGFipDtsWhO3j4G6 Bi0MOt26VP71VP79hTCgq9U8 bGU9 T7VlJMXincgsfcvqfLB4EGLl PNGfeP43Ja4vgOnnPk6xYZHh KRS3RBDunLYeD2HbyM3iDoCq MDAw WILqE0MtuHRqOMprD860VJpg SeY1TVBpajFkR4IpVEGggVop TuH9h4V6Hz0LXRemykn2U2Ju Pjwv dHI+JZ45YYSaYA04uLGobORg g2oroSy6IxNtBTHuIRR2eFiz VTfdw7UlUWWcX21dfEQty5L1 IGNv bGx (more content not included)... Normal [facility] Rad - MRI Reporton Rad - MRI Report [id number]#[email or web address] TIFF Normal [facility] MRI LE Non Joint w/o Contras t Lefton 07-03-2023 MRI LE Non Joint w/o Contrast Left CLINICAL HISTORY: Foot injury. Foot pain. COMPARISON: Foot radiographs 06/04/2023 TECHNIQUE: Multiplanar multisequence MRI of the left foot was performed without contrast FINDINGS: No evidence of recent fracture or stress reaction. Mild degenerative changes at the first metatarsophalangeal joint. Small first metatarsophalangeal joint effusion is likely reactive/degenerative. Flexor and extensor tendons are intact. Visualized plantar fascia is intact. Small benign cyst within the calcaneus measures approximately 1 cm. Mild degenerative changes of the midfoot. Musculature of the foot and subcutaneous soft tissues appear within normal limits. IMPRESSION: No acute osseous abnormality. Mild degenerative changes of the midfoot and first metatarsophalangeal joint. Final Signed (Electronic Signature): Horacio Foley DO 07/04/23 2:17 pm Technologist: SIDNEY [facility] Provider Orderson 06-22-2023 Provider Orders [id number] TIFF [facility] Coding Summaryon 06-11-2023 Coding Summary HTMLBase 64 LgtkjigsLPg8zJw+PGhlYWQ+ SX1WQJGtX72mzAKikG9cZ2AZ TElOSywgQVBQTElOSyIgbmFt UT0idXOvQQCw IC8+SC4pCVVcCggwbMMxr2Y3 fZR4U62fkw0pBAavsQM0TUJr OcQbwhkkz2ldkTd8VBthCnsw OyBt ZICkiG74WUA3xX02Uk30aSFf xEDva2durKy1QaCmVQKqOVQ6 tGddKKbft6CfWLXzB60dsJGs c2U6 AGSmkNlijFWfEqXgxQX1nQ4k EWondjjuo8iiqxdsYrs0fx77 oJKpa8L8lAE8P5GeetO6DMMd bGQg NqylrIKXdW0zyeerw2rhajgp PySbQALvPJz0LSb1KNGoiNei GaWeRI12OGN2XRWwjyXnR0Mn LWFs jGqjOuF0k3W5Sq9TH9VXBusb E8POSGAOHGutuXK+GW48sr16 Z0JdMuyoXpr8TTEkTVS6tOC7 aD0n BEPhSBmcz7C8iUS4B6NsinRt ef1qr5nsEJXjIQlqR24lcIWk y5N2BPImmUG2EIFjfXrwKbDd aG93 Oyc+QQQcqSmaw7VjAlbwj3ve b1omzAh9KfctXIItzjMqkDth VMY0n6AuLh8xTPJdqBF7bMJ1 aD0i IaOeXzO0WTjnV269OaHawVFf UxaiH46dX8AbhDJ+PHRyPjx0 BEBivDibSV0kE8QfAYChplle bGVm xEaxJX8pIVGditasKSDtcY8d OHFmI3a4QqTsVgV5UXfcR5Rl QSMtcqzxEr30wE2bUgEeXcJ4 MGlu P9BpfsN1FMSlvPHrBWqbYUK5 T44xw5Z2SNIpDECgWWG0yDF0 qV6nbAzmcxzvzDXkaSfvvcWs dGlj WDnnTOppS518BQTlwKrwOrFm ZGluZyBEYXRlOiAgMDgvMDYv MjAyMzwvdGQ+KSMwYWG8gNtk PSAn yUHdEPawZd6tfCdcmQitHN5v PHTjwdrrINVusW3sFCRbiGEb uQwoMZ9yBZQmcdlpw525XfJu MHB0 GTSdbOJzN2BfuS5wCyShFSDm PGYdW1WsoECqSGmxE936DRyh KmN5DPPrysSfQ1EvKLLfqXzd OiB0 u6R4Qj4Yw7NikpzxT7RkzZHc QjGwOcaeDLy9Y2SkAlnlrNX+ QV81XIHxPR45NFq4WGJ3sNuk PSdi COFpT0MmnC4bBdExIJNsOMZz Oyc+PHRhYmxlIHdpZHRoPScx CGBjJvQwvRlwXE2yNh4gIRSg LWNv vCqlfWCxYzVnb5npJCJrJBkx PB4zhTuaF6AxyXC3CNYim9b1 Xo44B76sN9PmsCW+PGNvbCB3 aWR0 aO1fWoMdReF6CPbsA175GsBi oNRoTpwzt7xpj8cnbEj9QtJ6 NOMwohJwuBnoEKD7k6PkCg73 Y29s IHdpZHRoPSIxNSUiIHZhbGln ea9gtO6hCc9+GAHsjFN0kJH4 xL2lPjCsZiY9OMpbG049PlHk cCIv Yvoyz3sba3jzzTl8LhMbZHLi buJwmKxcYGK8p6MpHg88W2Ya bZabd1DnNwp7ip46mFMeo9T4 bGU9 J7PuCUCuzrgepDFzvEfbPF2p BYEmeahmIWSfaG0qYJCtM4p4 WpWkBiN0DGkuA7GtjjX1JGEv bGQg LOPysKMWsN5yppfji8srauhx FyLvJRDrYCn5GGh8RVAscVks DaZlEVH5WpW7ZBM1dDFdoU1c bGln lvshyY6eTci+LQQ2mUFjuWKA JC2yEtkazJS+YTIeTDK3nWtg DBewWMOoaG5dRWEuS2w4FiVh LjA1 UZihJ2EokhV5XEExlPOaELRi jFHHyT3lencak2tcdpqgIhAe VJJaIBt0WZh5EYLzgLppRrJv ZWZ0 YhN3FDM0eXWdrA5wyNoibugm cF8uSqc+AxbzuTslRGU1VQp3 V5BtUxq4INTmkTtdDJ9rbTUd ZGlu Sc1hbDpduMqqLY5qETOyqfld w689KnVit4cyRNClxGMzYOdn MEJ7E53ss1K8VVPhMSJtAVS8 dGV4 iP0hvXzdwuxacKHtpMcxbdPv fVyxGEemDGemM275MPVgbKbv UeQjDDj0B7BsVrb8RJMysBuu ZT0n aAJgERfqAp6zrLkdcDqwLB2d KYGixdomn414NwXpc6evJXPc mKDmRStuFPE4G28bw1V3ODNn MDAw VSS0rJW2qX9byBneivkltGWl sYfcfeDhnTxeJFzmDDwlS472 ZYWeyApmSvTmqLj8X2CwLnq0 ZCBz cQwuNS9euHGpFJdtCg4ynLcp cElaAU7jZADcoldyh767VnLt p7ivIMCiaFOpVRwbIFH5X48u b3I6 AGLkTBUlEEK3bMM8fJ0imOwy bjogbGVmdDsgdmVydGljYWwt HGvsE358QNWguSjcRfGnoHhy bnQg VBmfWWk6A1CjAtolgGD+PC90 XJEuFY30yUTzpXEog7hkkGu2 ZaZqCNZoIFI3wKdfQRwsa4Sk ZXIt M71kpVUkh9Q1JIOqgXuxlRBa RfRnxMU9jT4sMJzrutond6hb fhwyDdhdh1alyl06yO21I93y IHdp YPWzZFTxGFKkYEUgtUjvuv0e sC8yUg1+BBQqbLN5zWC5yH1u LRReBuY6FNqjI544YyPmnVHn Pjxj q1rwh7ewbXh6GfF9MFHdqtXk qVzdIAD0t3OnQb09G13iIOwv FDOxJASvUFGjIRIfyWqfmo5r dG9w Ii8+PBUivND8mLJ9xZ6ePmWj SaV3TGwmJ861MsEtbLWdOilf Q89qZ9BawSV+OXNuFtd9BFTr dHls FZ6yqPYxUVzlBx6jXFA1WnDd SmHbVEqrA2SvJFYspjpwzdgg zEH4NJVgYNUwbQ93Kp1enBpc MTBw yLHOcB3pqtpxw0afdkxuVjYq JCZtJBq3MZr1MTPcdGclOmKq NNK2NsG9VPZ3nEJqfA9bvVho bjog qJ3wT2FlKUUbnszcXk53nI5w UjArTbL7GSklAgx+VqEUW5YD OSFGL9LFOsQcIqqylXF+PHRk IHN0 fCvyQVufAZNjrB5iYGJuN5g0 ZkXmZhG8NPcnK8MzHAMgwfoq Wf69rF5jXqUnYuZ6CAngO4Co bnQ6 GNTewSCoAPvlSWR1N31at1U4 YDIiRRHrTGJ0mMO9wV8qwPvt bjogbGVmdDsgdmVydGljYWwt YWxp J713PWGrgUyvIeDxHfT9MxW3 ZPN8E1KzUyi8QDFueAjuMW5j xSFzLImoGs1qjOvrkYmrZL2q NTBp ytruQYQbeL5vXPPclIPnmJcn GE1mGNSooafyb757IsTtABQ2 QPKkuZTyN7HyqH0xAzWlINBd MDAw P4LrwIIrSUlsE885SQqxTbK0 MQFvfyVsZ6EnXUMbtMonJnS7 u3Y0Kx09ELNDADGkzkzypVU+ PHRk EEB6sKauOLjcGUOewB6lKKSe M7h7SuXpJaN2THwwC8ExYDLx atvvHv09eN8gDiMaEiO9POks O2Zv ojA9LEApvUWeUPtbZAY0G98t r8S3IIQzJKWtMNL3kCZ6kW0z bGlnbjogbGVmdDsgdmVydGlj YWwt SYobR217QKOrzUjzIe5BIHO2 F5NvIue5CVAopPsbRC3zyWCe MGgeUh5mhLnstUpuZO0nRBLy bjtw KYEfcY6wMYEdnXUfzSfqWW0z HCIjycgxt490UqFuUKS0UDWv vVUzY6DpoB7aJkCxDIZoGOHz O3Rl aHEqYDstS751HLpxXwF9LFRt khOmS6QdFPRpuOerDuH8v0R8 Py0DmAZgU3JmB6o2O8KkQusa dHI+ JS97DMRpSK18sYTvkKIfq7uc vLz4OtBuVOQwQAH0zSwbQUjr a8KgWBSqU21npIUjh8V8HLWn bGxh gAFdCrAikEQ4cB6hBDrraciv q5lnmitsPkust8hrby94wH12 G41eJVecKYRuZEPvUKRmZZGl bGln dj0rmX0tEd8+WPGlqOZ4rGB2 iV5mPpWdEvO4HUuwT824SzHg gPPdApxkp7vht6zuiTx9FnPd JSIg ltNyhLxqMWB0z5SlXb30F77c IHdpZHRoPSIyMCUiIHZhbGln ds0lpA5nXi6+BE8qi6eucs88 cD48 dHI+FXPdRFM1pSekHIywOUUc zS5zVOmyJhS2SAZuPzTpcM28 wNMbRUgjJr6anRqfuAlwXZ1t NTBp dhror261PgHtq6ubZENevPIf DTneKPP7T51pg9F1THNfLTPo KTV7nTZ2xI7ivJevpebvrZMz dDsg wyGieVsdDYbzLKnjG551ZIWb xEyuKpZznWAbH6npleQNVQ5k OjwvdGQ+DRXbYPH4lUjpCNbv YWRk oQ5qNAAsF3h9AwDyBcL1JEno C5QkyeM4QNIagGWlWYIrbJIC pJ6uhxzmd3udobijYuQhPWLh MDt0 PWn7DBAhbOueStWbSEU2MpE0 ZRQ1sXNvmM3zkOpomcxurR8e Oyc+RklOOjwvdGQ+PHRkIHN0 eWxl QUtyNAFoqJ9jMLWbK9p0IfZy GzA9KQugM7YbzwK8MJVjvZAb AYHicQSCgX7egipxe5xxukjz IzAw DGBnIPv4DEw6SANtqNygNpNy AEO3BwC8NFS4jCNskS6kcXig qbwlwZ1vLyl+TVJOOjwvdGQ+ PHRk EMD9zWkePLsgHIMcwU4uOPHn S3l2BhWsYkW0DUegQ9AjlqY7 YHPpiMDbFHKjkUHDvO6offaw b2xv xhxxTiDiHMZvMOy8NMv8IEPo pMnyCnSkIVS9ItA2VOU2zNFo qK9niHiilzkahD5wMuk+UGF5 ZXI6 JS45WK46F6XhMpquoCHweKM+ PHRhYmxlIHdpZHRoPScxMDAl WqYhuXlxOK1wMy6xXUUbWEBx bGxh cHN (more content not included)... Normal [facility] ED Clinical Summaryon 2022 ED Clinical Summary [facility] - Emergency Department [address] [place] [id number] ED Clinical Summary PERSON INFORMATION Name: HORACIO SOTO Age: 68 Years Sex: MALE : 1955 MRN: Acct#: Visit Reason: Foot pain-swelling; LFT FOOT PAIN/SWELLING Arrival: 06/04/2023 08:54:47 Discharge: 06/04/2023 10:08:00 LOS: 000 01:14 Check In: 06/04/2023 08:54:47 Checkout:06/04/2023 10:08:00 Address: [address] [place] [id number] PCP: Provider, Unlisted PROVIDER INFORMATION Provider Role Assigned Unassigned Prabhakar Meza DO ED Provider 06/04/2023 09:01:06 Sen RN, [place] ED Nurse 06/04/2023 09:17:32 VITALS INFORMATION Vital Sign Triage Latest Temperature Tympanic 36.5 DegC 36.5 DegC Temperature Temporal Artery Pulse Rate 72 bpm 72 bpm O2 Sat 98 % 98 % Respiratory Rate 18 br/min 18 br/min Blood Pressure /93 mmHg /93 mmHg MEDICAL INFORMATION Medications Given: Medication Dose Route ketorolac 30 mg IM Allergy Information: No known allergies PHYSICIAN DOCUMENTATION DISCHARGE INFORMATION: Discharge Disposition: Home Discharge Location: Home PATIENT EDUCATION INFORMATION Instructions: Walking Boot, Adult; Lisfranc Injury; Heart-Healthy Eating Plan; Hypertension, Adult, Cwub-po-Itmm Follow-Up: With: Address: When: Follow up with primary care provider Within 1 week Comments: follow up with your primary doctor regarding your blood pressure With: Address: When: Barron Alanis [address] [phone] Within 1 to 2 days Comments: Use the Jose Ramon wrap and the CAM boot at all times when you are walking. There may be a LISFRANC injury and fracture which requires you to stay in this boot for proper healing. You can remove it when you are resting Call the podiatry office tomorrow for a follow-up appointment in the next couple days DIAGNOSIS: 1:Injury of left foot; 2:Pain of left foot; 3:HTN - Hypertension Patient Understands: Yes - Patient/family/caregiver verbalizes understanding of instructions given Comment: [facility] ED Note-Nursingon 06-04-2023 ED Note-Nursing AAOx3. JEFFERS. SKin warm,dry ,pink. RESpirations regular, even. States dropped a brick mortor on his left foot last monday. States is still hurting, difficult to walk and getting no better. Left foot swollen, dorsal aspect from toes to ankle. Dorsal aspect is slightly bruised, and has superficial abrasion. PMS intact and good capillary refill to toes. Ice to foot. Dr. Meza in for exam. at cart side, interacts well with pt. [facility] ED Patient Summaryon 023 ED Patient Summary [facility] - Emergency Department [address] [place] [address] PATIENT DISCHARGE INSTRUCTIONS Patient Information Name: HORACIO SOTO Age: 68 Years Date of : 1955 [facility]: [id number] Reason For Visit: Foot pain-swelling; LFT FOOT PAIN/SWELLING Arrival Time: 06/04/2023 08:54:47 Primary Care Physician: Provider, Unlisted Attending Physician: Prabhakar Meza DO Comment: Visit Diagnosis: Diagnoses This Visit Foot pain-swelling ([id number]) HTN - Hypertension (I10) Injury of left foot (S99.922A) Pain of left foot (M79.672) The Pharmacy at [facility] is open Monday through Monday from 9A to 6P and Monday and Monday from 9A to 5P Prescription Information: If you have been given a prescription for narcotics, seek immediate medical attention if you have any difficulty breathing or any sudden status changes such as confusion and sleepiness. If you or anyone you know is experiencing suicidal thoughts, mental health, alcohol and/or drug addiction problems; contact the [facility] 29/05 Crisis Hotline -Text 8ATOO is 759191. If you received any narcotics, sedation, or any other medication that causes drowsiness for the next 24 hours, unless otherwise directed: ? Do not drive a car. ? Do not operate machinery such as power tools, lawn mowers, drills, sewing machines, or stoves ? Avoid alcoholic beverages and drugs for allergies, nerves, or sleep ? Do not make important personal or business decisions or sign any legal documents With: Address: When: Follow up with primary care provider Within 1 week Comments: follow up with your primary doctor regarding your blood pressure With: Address: When: Barron Alanis [address] [phone] Within 1 to 2 days Comments: Use the Jose Ramon wrap and the CAM boot at all times when you are walking. There may be a LISFRANC injury and fracture which requires you to stay in this boot for proper healing. You can remove it when you are resting Call the podiatry office tomorrow for a follow-up appointment in the next couple days Medication Information: The exam and treatment you received today in the [facility] Emergency Department were for an urgent problem and are not intended as complete care. It is important for you to follow up with a doctor, nurse practitioner, or physician?s podiatrist assistant for ongoing care. If your symptoms become worse or you do not improve as expected and you are unable to reach your usual health care provider, you should return to the Emergency Department, we are available 24 hours a day. For those patients who have received Radiology results, the interpretation of your X-ray as given to you by our Emergency Department physician is only a preliminary report. The Radiologist will review your films and if there is a change in the diagnosis you will be notified by phone. Please make sure you have provided a working phone number so we can reach you if necessary. In the event that you had a lab culture while you were a patient in the Emergency Department, you will be notified by phone if there is a need to change your antibiotic. Please make sure you have provided a working phone number so we can reach you if necessary. [facility] Emergency Department has provided you with a complete list of medications post discharge. Please inform your sql programmer/provider of your visit and for further instruction on these medications. Any specific questions regarding your chronic medications and dosages should be discussed with your primary care physician(s) and/or pharmacist. Medications to Continue That Have Not Changed Other Medications naproxen (naproxen 500 mg oral tablet) 1 tab(s) Oral 2 times a day. Additional medications on your home medication list not specifically addressed. Please contact the ordering physician if you have questions about these medications. allopurinol (allopurinol 100 mg oral tablet) 2 tab(s) Oral every day for 30 Days. Refills: 5. hydrochlorothiazide-vivien nopril (hydrochlorothiazide-lis inopril 25 mg-20 mg oral tablet) 1 tab(s) Oral every day. Refills: 1. meloxicam (meloxicam 7.5 mg oral tablet) 1 tab(s) Oral every day for 30 Days. Refills: 5. omeprazole (omeprazole 20 mg oral delayed release capsule) 1 cap(s) Oral every day for 30 Days. Refills: 5. tadalafil (tadalafil 20 mg oral tablet) 1 tab(s) Oral every day for 10 Days. take half tab 10mg once daily, if no response take full dose 20mg once daily.. Refills: 1. Visit Information Allergies: Substance Reaction Symptoms Type Comments No known allergies Drug Vital Signs: Vitals and Measurements this Visit (last charted value for your 06/04/2023 visit) Vital Signs This Visit Temperature Tympanic: 36.5 DegC Peripheral Pulse Rate: 72 bpm Respiratory Rate: 18 br/min Systolic Blood Pressure: 189 mmHg (more content not included)... [facility] XR Foot Complete Lefton 05-08 XR Foot Complete Left Findings: Narrowing left first metatarsophalangeal joint with mild flattening left first metatarsal head spurring along lateral margin. No fracture. No bone lesion. Mild spurring posterior calcaneus. Impression: No fracture. Degenerative changes discussed. Final Signed (Electronic Signature): Cameron Perkins MD 06/04/23 10:17 a Technologist: Wesley VALENTINE [facility] Vital Signs Date Time Vital Sign Value Performing Clinician Bhumi price 11-27-2024 09:11-0500 Body height 180.3 cm Jorden Smallwood DO Work Phone: [facility] 11-27-2024 09:11-0500 Body mass index (BMI) [Ratio] 32.22 kg/m2 Jorden Smallwood DO Work Phone: [facility] 11-27-2024 09:11-0500 Body weight 104.78 kg Jorden Smallwood DO Work Phone: [facility] 11-27-2024 09:11-0500 Diastolic blood pressure 72 mm[Hg] Jorden Smallwood DO Work Phone: [facility] 11-27-2024 09:11-0500 Heart rate 72 /min Jorden Smallwood DO Work Phone: [facility] 11-27-2024 09:11-0500 Systolic blood pressure 140 mm[Hg] Jorden Smallwood DO Work Phone: [facility] Encounters Encounter Date Encounter Type Care Provider Facility Start: 11-27-2024 End: 11-27-2024 Transitional care manage srvc 14 day discharge Jorden Smallwood DO Work Phone: [facility] Comment on above: Coronary artery dise ase involving assiniboine and sioux coronary artery of assiniboine and sioux heart without angina pectoris; S/P PTCA (percutaneous transluminal coronary angioplasty); ST elevation myocardial infarction (STEMI), unspecified artery (Multi); Mixed hyperlipidemia; Essential hypertension; Acute gout, unspecified cause, unspecified site; BMI 32.0-32.9,adult; Former smoker Start: 11-27-2024 End: 11-27-2024 ambulatory [facility] Start: 10-24-2024 End: 10-24-2024 Telephone encounter Minnie Walker [facility] Comment on above: Preventative Screeni ng Start: 10-19-2024 End: 10-22-2024 Evaluation and management of inpatient W Juan Smallwood Facility:[facility] Start: 10-17-2024 End: 10-17-2024 Refill Sena Rudd APRN-DRAWING PRESS OPERATOR Work Phone: [facility] Comment on above: Gout, unspecified ca use, unspecified chronicity, unspecified site Start: 10-08-2024 End: 10-08-2024 Emergency department patient visit [facility] Start: 07-24-2024 End: 07-24-2024 ambulatory [facility] Start: 07-24-2024 Encounter for genera l adult medical examination without abnormal findings [facility] Start: 02-09-2024 Refill Leandra Martin [facility] Comment on above: Gout, unspecified ca use, unspecified chronicity, unspecified site Start: 07-26-2023 End: 07-26-2023 ambulatory Alonso Strong DPM Work Phone: [facility] Comment on above: Injury of left foot, initial encounter (Primary Dx) Start: 07-26-2023 End: 07-26-2023 Telemedicine consultation with patient Alonso Sebastian Tae DPM Work Phone: [facility] Start: 07-06-2023 Telephone encounter Alonso joseph DPM Work Phone: [facility] Comment on above: Patient Question (Re fill request ) Start: 07-05-2023 End: 07-05-2023 Patient encounter procedure Alonso Strong DPM Work Phone: [facility] Comment on above: Crushing injury of l eft foot, subsequent encounter (Primary Dx) Start: 07-03-2023 End: 07-04-2023 ambulatory Sandra Foster MD Facility:[facility] Start: 06-21-2023 Telephone encounter Alonso joseph DPM Work Phone: [facility] Comment on above: Insurance Authorizat ion (C - MRI LT FT) Start: 06-04-2023 End: 06-04-2023 Emergency department patient visit Sandra Foster MD Facility:[facility] Procedures Date Procedure Procedure Detail Performing Clinician Start: 07-24-2024 Adult depression screening assessment Sena Rudd EQUAL OPPORTUNITY REPRESENTATIVE-DRAWING PRESS OPERATOR Work Phone: Start: 03-18-2023 Lipid 1996 panel - S wes or Plasma Alonso Strong DPM Work Phone: Start: 01-26-2023 Adult depression screening assessment Leandra Martin CMA Plan of Treatment Date Care Activity Detail Author Start: 03-18-2028 Lipid 1996 panel - Serum or Plasma Lipid Screening [facility] Start: 03-18-2028 LIPID SCREEN LIPID SCREEN [facility] Start: 10-08-2025 Adult BMI Screening Adult BMI Screening [facility] Start: 10-08-2025 Tobacco Screening Tobacco Screening [facility] Start: 07-24-2025 Depression Screening Depression Screening [facility] Start: 07-24-2025 Fall Risk Screening Fall Risk Screening [facility] Start: 07-24-2025 Medicare Annual Wellness Visit Medicare Annual Wellness Visit [facility] Start: 04-08-2025 End: 04-08-2025 Patient encounter procedure 04/08/2025 11:20 AM EDT Office Visit [place] [id number] [phone] Jorden Smallwood DO [address] [place] [address] [facility] Start: 01-21-2025 End: 01-21-2025 Patient encounter procedure 01/21/2025 11:10 AM EDT Office Visit [facility] [address] [place] [address] Jorden Smallwood, DO [address] [facility] [address] [place] [address] [facility] Start: 11-01-2024 End: 11-01-2024 Patient encounter procedure 11/01/2024 8:40 AM EST Office Visit [facility] [address] [place] [address] Sena Rudd APRN-CHAITANYA [address] [place], [place] [address] [facility] Start: 07-07-2024 COVID-19 Vaccine ( season) COVID-19 Vaccine () [facility] Start: 07-07-2024 COVID-19 Vaccine ( season) COVID-19 Vaccine () [facility] Start: 07-07-2024 Influenza vaccination Influenza Vaccine [facility] Start: 03-21-2024 Adult BMI Screening Adult BMI Screening [facility] Start: 03-21-2024 Tobacco Screening Tobacco Screening [facility] Start: 01-27-2024 Depression Screening Depression Screening [facility] Start: 01-27-2024 Fall Risk Screening Fall Risk Screening [facility] Start: 07-07-2023 Covid-19 Vaccine ( season) Covid-19 Vaccine ( season) [facility] Start: 07-07-2023 COVID-19 Vaccine () COVID-19 Vaccine ( season) [facility] Start: 07-07-2023 Influenza vaccination [facility] Start: 11-06-2022 ADVANCE DIRECTIVE DISCUSSION ADVANCE DIRECTIVE DISCUSSION [facility] Start: 11-06-2022 DEPRESSION ASSESSMENT DEPRESSION ASSESSMENT [facility] Start: 11-20-2021 COVID-19 VACCINE (4 - Pfizer series) COVID-19 VACCINE (4 - Pfizer series) [facility] Start: 01-31-2020 Abdominal aortic aneurysm screening Abdominal Aortic Aneurysm (AAA) Screen [facility] Start: 01-31-2020 Pneumococcal Vaccine: 65+ (1 - PCV) Pneumococcal Vaccine: 65+ (1 - PCV) [facility] Start: 01-31-2020 PNEUMOCOCCAL: 65+ (1 - PCV) PNEUMOCOCCAL: 65+ (1 - PCV) [facility] Start: 2015 RSV High Risk: (Elderly (60+) or Population) (1 - Risk 60-74 years 1-dose series) RSV High Risk: (Elderly (60+) or Population) (1 - Risk 60-74 years 1-dose series) [facility] Start: 2015 RSV Vaccine (1 - 1-dose 60+ series) RSV Vaccine (1 - 1-dose 60+ series) [facility] Start: 2010 PROSTATE CANCER SCREENING DISCUSSION PROSTATE CANCER SCREENING DISCUSSION [facility] Start: 2005 Administration of varicella zoster vaccine Zoster (Shingles) Vaccine (1 of 2) [facility] Start: 2005 SHINGRIX VACCINE (1 of 2) SHINGRIX VACCINE (1 of 2) [facility] Start: 2005 Zoster Vaccines (1 of 2) Zoster Vaccines (1 of 2) [facility] Start: 01-31-2000 COLOGUARD (FIT-DNA) COLOGUARD (FIT-DNA) [facility] Start: 01-31-2000 Colonoscopy COLONOSCOPY [facility] Start: 01-31-2000 COLORECTAL CANCER SCREENING COLORECTAL CANCER SCREENING [facility] Start: 01-31-[address] COLONOGRAPHY [facility] Start: 01-31-2000 DIABETES SCREEN DIABETES SCREEN [facility] Start: 01-31-2000 Diabetes Screening Diabetes Screening [facility] Start: 01-31-2000 FECAL OCCULT BLOOD FECAL OCCULT BLOOD [facility] Start: 01-31-2000 SIGMOIDOSCOPY SIGMOIDOSCOPY [facility] Start: 1977 DTaP/Tdap/Td Vaccines (1 - Tdap) DTaP/Tdap/Td Vaccines (1 - Tdap) [facility] Start: 1974 DTaP,Tdap and Td Vaccines (1 - Tdap) DTaP,Tdap and Td Vaccines (1 - Tdap) [facility] Start: 1974 Pneumococcal vaccination Pneumococcal Vaccine (1 of 2 - PCV) [facility] Start: 1974 Urine microalbumin profile [facility] Start: 1973 Adult BMI Follow Up Plan Adult BMI Follow Up Plan [facility] Start: 1973 Diabetes mellitus screening Diabetes Screening [facility] Start: 1973 HEPATITIS C SCREENING HEPATITIS C SCREENING [facility] Start: 1973 Hepatitis C screening Hepatitis C Screening [facility] Start: 1955 Lipid panel Lipid Panel [facility] Start: 1955 Medicare Annual Wellness Visit [facility] Start: 1955 Screening for malignant neoplasm of colon [facility] Immunizations Immunization Date Immunization Notes Care Provider Fa cili 10-01-2022 Covid-19, Mrna, Lnp- s, Bivalent, Pf, 30mcg/0.[address] [facility] 10-01-2022 Seasonal, quadrivale nt, recombinant, injectable influenza vaccine, preservative free [facility] 10-01-2022 influenza virus vaccine, unspecified formulation Alonso Strong DPM Work Phone: [facility] 09-25-2021 COVID-19, mRNA, LNP- S, PF, 30mcg/0.3mL Dose Leandra [facility] 09-25-2021 Influenza, High-dose , Quadrivalent Leandra [facility] 01-07-2021 COVID-19, mRNA, LNP- S, PF, 30mcg/0.3mL Dose Leandra [facility] 12-17-2020 COVID-19, mRNA, LNP- S, PF, 30mcg/0.3mL Dose Leandra [facility] 08-12-2020 influenza, injectabl e, quadrivalent, preservative free Leandra [facility] Payers Date Payer Category Payer Self-pay 2023 Medicare (Managed Care) [facility] [id number] 2023 Unknown [id number] 2023 Medicare [employer]M MEDICARE [employer]M MEDICARE ADVANTAGE [id number] 2023-Present [id number] [place] [address] [id number] 2023 Medicare HMO [employer] MEDICARE [id number] 2023 Unknown [id number] 1955 Unknown [id number] 1955 Unknown [id number]. 2.718 1955 Unknown [id number] 2.16.840.1.963798.3.579. 2.1286 1955 Unknown [id number] 2.16.840.1.590316.3.579. 2.1286 1955 Unknown [id number] 2.16.840.1.216850.3.579. 2.1244 Unknown [id number]. 2.531 Social History Date Type Detail Facility Tobacco smoking stat us [facility]IS Tobacco smoking consumption unknown [facility] Start: 06-14-2023 End: 11-27-2024 History of Social function [facility] Start: 06-14-2023 End: 11-27-2024 Area Deprivation Index [facility] National Score (1-10 0), lower number is lower risk 71 [facility] Start: 1955 Sex Assigned At Not on file C [facility] Start: 01-26-2023 End: 11-27-2024 Tobacco smoking status [facility]IS Ex-smoker [facility] End: 11-06-1982 History of tobacco use Current smoker [facility] End: 11-06-1982 History of tobacco use Cigarette Smoker [facility] Start: 01-26-2023 End: 11-27-2024 Tobacco use and exposure Smokeless tobacco non-user [facility] Start: 03-21-2023 End: 11-27-2024 Alcohol intake Current drinker of alcohol (finding) [facility] Start: 03-21-2023 Alcohol Comment 6 a night [facility] Start: 06-11-2015 Sex Male (finding) [facility] Start: 11-17-2024 End: 11-27-2024 Exposure to SARS-CoV-2 (event) Not sure [facility] Clinical Notes 06-04-2023 to 11-27-2024 Jorden Smallwood DO - 11/27/2024 9:20 AM ESTPatient InstructionsTelephone Encounter - Minnie Walker CMA - 10/24/2024 2:16 PM ESTTelephone Encounter - Minnie Walker CARDIOVASCULAR DISEASE SPECIALIST - 10/24/2024 2:16 PM EST Note Date & Type Note Facility 11-27-2024 History of Present illness Narrative Subjective Horacio Soto is a 69 y.o. male Chief Complaint Follow-up 69-year-old gentleman here for 14-day TCM office visit status post inferolateral STEMI with primary revascularization of the proximal/mid LAD and subsequent intervention of the distal RCA PLV branch with several drug-eluting stents with preserved LV function; details of my admission note, discharge note, interventional procedures and imaging procedures are reviewed in their entirety. Following discharge, patient had acute flare of gout; still disabled by this, received prednisone and finished his prednisone (steroids, relative contraindication PostMI). Left ventricular function is normal, he has no edema or shortness of breath or recurrent hospitalizations other than emergency room visit for the gout flare Recommendations: Initiate colchicine 0.6 mg daily for the next 10 days, cardiac rehab referral, follow-up in 4 months, continue current therapies, discussed the importance of abstaining from steroid/nonsteroidal anti-inflammatories PostMI Review of Systems Respiratory: Positive for shortness of breath. All other systems reviewed and are negative. Vitals: 11/27/24 0911 BP: 140/72 BP Location: Left arm Patient Position: Sitting Pulse: 72 Weight: 105 kg (231 lb) Height: 1.803 m (5' 11 ) Objective Physical Exam Constitutional: Appearance: Normal appearance. HENT: Nose: Nose normal. Neck: Vascular: No carotid bruit. Cardiovascular: Rate and Rhythm: Normal rate. Pulses: Normal pulses. Heart sounds: Normal heart sounds. Pulmonary: Effort: Pulmonary effort is normal. Abdominal: General: Bowel sounds are normal. Palpations: Abdomen is soft. Musculoskeletal: General: Normal range of motion. Cervical back: Normal range of motion. Right lower leg: No edema. Left lower leg: No edema. Skin: General: Skin is warm and dry. Neurological: General: No focal deficit present. Mental Status: He is alert. Psychiatric: Mood and Affect: Mood normal. Behavior: Behavior normal. Thought Content: Thought content normal. Judgment: Judgment normal. Allergies Patient has no known allergies. Current Medications Current Outpatient Medications: allopurinol (Zyloprim) 300 mg tablet, Take 1 tablet (300 mg) by mouth once daily., Disp: , Rfl: aspirin 81 mg EC tablet, Take 1 tablet (81 mg) by mouth once daily., Disp: , Rfl: atorvastatin (Lipitor) 80 mg tablet, Take 1 tablet (80 mg) by mouth once daily., Disp: , Rfl: HYDROcodone-acetaminophen ([place]) 5-325 mg tablet, Take 1 tablet by mouth every 4 hours if needed for pain., Disp: , Rfl: lisinopril 20 mg tablet, Take 1 tablet (20 mg) by mouth once daily., Disp: , Rfl: metoprolol tartrate (Lopressor) 25 mg tablet, Take 1 tablet (25 mg) by mouth once daily., Disp: , Rfl: nitroglycerin (Nitrostat) 0.4 mg SL tablet, Place 1 tablet (0.4 mg) under the tongue every 5 minutes if needed for chest pain., Disp: , Rfl: pantoprazole (ProtoNix) 40 mg EC tablet, Take 1 tablet (40 mg) by mouth once daily in the morning. Take before meals., Disp: , Rfl: ticagrelor (Brilinta) 90 mg tablet, Take 1 tablet (90 mg) by mouth 2 times a day., Disp: , Rfl: Assessment/Plan 1. 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 and sioux heart without angina pectoris 2. S/P PTCA (percutaneous transluminal coronary angioplasty) 3. ST elevation myocardial infarction (STEMI), unspecified artery (Multi) 4. Mixed hyperlipidemia 5. Essential hypertension 6. Acute gout, unspecified cause, unspecified site 7. BMI 32.0-32.9,adult 8. Former smoker Scribe Attestation By signing my name below, I, Nat Javed LPN Scribleigh attest that this documentation has been prepared under the direction and in the presence of Jorden Smallwood DO. Provider Attestation - Scribe documentation All medical record entries made by the Scribe were at my direction and personally dictated by me. I have reviewed the chart and agree that the record accurately reflects my personal performance of the history, physical exam, discussion and plan. documented in this encounter [facility] Work Phone: 11-27-2024 Instructions Nat Lemus LPN - 11/27/2024 9:20 AM EST Please bring all medicines, vitamins, and herbal supplements with you when you come to the office. Prescriptions will not be filled unless you are compliant with your follow up appointments or have a follow up appointment scheduled as per instruction of your physician. Refills should be requested at the time of your visit. BMI was above normal measurement. Current weight: 105 kg (231 lb) Weight change since last visit (-) denotes wt loss 231 lbs Weight loss needed to achieve BMI 25: 52.1 Lbs Weight loss needed to achieve BMI 30: 16.4 Lbs Provided instructions on dietary changes Provided instructions on exercise. documented in this encounter [facility] Work Phone: 10-24-2024 Miscellaneous Notes Care Coordination Outreach performed to coordinate overdue appointments, testing, and/or follow-up care: Yes Audit/Outreach Date: October 24, 2024 Reason: Colorectal Cancer Screening Method: Telephone Outreach Attempt: First Outcome: Contacted Patient Next PCP Appointment: Has Next PCP Appt Tests/Referrals Pended: N/A Resources/Education Provided: Additional Comments: Patient states that he has not received his kit. Requested new kit from [employer]. documented in this encounter [facility] 10-24-2024 Telephone encounter Note Care Coordination Outreach performed to coordinate overdue appointments, testing, and/or follow-up care: Yes Audit/Outreach Date: October 24, 2024 Reason: Colorectal Cancer Screening Method: Telephone Outreach Attempt: First Outcome: Contacted Patient Next PCP Appointment: Has Next PCP Appt Tests/Referrals Pended: N/A Resources/Education Provided: Additional Comments: Patient states that he has not received his kit. Requested new kit from [facility]. [facility] 10-08-2024 Note XR CHEST 1 VW History: Chest pain Procedure: Chest AP portable upright Comparison: none Findings: The heart and lungs show no acute findings, and the mediastinum and riley are grossly negative . No pneumothorax. Impression: No acute pulmonary process. Finalized by Darius Romero MD on 10/08/2024 9:46 AM [facility] 08-28-2023 History of Present illness Narrative TELEMEDICINE VISIT PROGRESS NOTE This is a telemedicine encounter initiated for a patient, parent or guardian not originating from a related Evaluation & Management service provided within the previous 7 days nor leading to an Evaluation & Management service or procedure within the next 24 hours or soonest available appointment. The visit was performed using [employer]. Horacio Soto has consented to this telemedicine encounter. Persons Present: patient Chief Complaint/Reason: update on crush injury to foot HPI: still painful but improved Data Reviewed: patient history Assessment: No diagnosis found. Plan: Advised WBAT. Use boot/shoe prn. ACEVEDO follow up 2 weeks or prn Total Time Spent: 5-10 minutes Alonso Strong DPM, FACFAS [facility] [address] [place] [address] W [email or web address] [email or web address] documented in this encounter [facility] 07-07-2023 Miscellaneous Notes The following approved medication requests have been transmitted electronically. Requested Prescriptions Signed Prescriptions Disp Refills oxyCODONE-acetaminophen (PERCOCET) 5-325 mg tablet 28 tablet 0 Sig: Take 1 tablet by mouth three times daily as needed for pain. Authorizing Provider: YOMAIRA BRAVO DPM FACFAS Patient called in today asking if the Dr would be able to call in a refill for his pain medication. Please advise documented in this encounter [facility] 07-05-2023 History of Present illness Narrative Chief Complaint: Left foot injury HPI: This 68 year old male with PMH indicated below presents for follow up of left foot injury where he dropped a heavy 50lb block on his foot. He has been trying to stay off his left foot and has stopped wearing the CAM boot, and has increased pain since discontinuing the boot. Denies use of anti-inflammatories. Admits to soaking his foot in warm water for relief. Has some improvement of his pain since last visit. Still relates to sharp and aching pain of his great toe joint and the ball of his foot. Obtained MRI yesterday and presents for review today. Denies any other pedal complaints. Denies any consitutional symptoms. PCP: No primary care provider on file.: No past medical history on file.: Current Outpatient Medications Medication Sig oxyCODONE-acetaminophen (PERCOCET) 5-325 mg tablet Take 1 tablet by mouth three times daily as needed for pain. No current facility-administered medications for this visit. : ALLERGIES Not on File: No past surgical history on file. No family history on file.: REVIEW OF SYSTEMS Negative unless stated otherwise. MSK: + as noted in HPI. Physical Exam: Patient is alert and oriented x 3 in NAD. Patient is a 68 year old male who appears well developed, well nourished and with good attention to hygiene and body habitus. There were no vitals taken for this visit. Vascular: DP and PT pulses are palpable. CFT less than 3 seconds to all digits bilateral. Skin temperature is warm to warm from proximal to distal bilateral. Hair growth is noted. Mild edema of the forefoot noted. No varicosities noted. No ecchymoses. Neuro: Light touch intact bilateral. Protective sensation intact at all pedal sites via [place] 5.07 monofilament bilateral. Proprioception intact at the hallux bilateral. Derm: Skin texture and turgor within normal limits. Toenails normal in appearance. Webspaces 1-4 clean, dry, intact b/l. No rashes, subcutaneous nodules, or open lesions noted. No hyperkeratotic tissue. Musculoskeletal/Orthopaedic: +5/5 muscle strength Dorsiflexion, Plantarflexion, Inversion, Eversion bilateral ROM of the 1st MTPJ is full with pain to the right foot. ROM of the MTJ/STJ is full without pain or crepitus b/l. Ankle joint ROM is decreased B/L Pain with ROM of the TMTJs. No pain with palpation of lisfranc complex. Pain and crepitus noted with first mpj range of motion. End range of motion is most painful. Pain with palpation of dorsal and plantar aspects of the first mpj. Mild pain with range of motion of lesser digits. Radiographs(06/14/23): 3 views AP, MO, Lat left Foot were taken and evaluated. Radiographic evaluation: Intra-articular minimally displaced fracture of the proximal phalanx of the hallux. Small chip fragment off the base of the second metatarsal. No osteolytic or osteoblastic lesions appreciated. No soft tissue gas. No discernible mass noted. Joint spaces are well maintained. Bone density appear typical for age of patient. MRI left foot (07/04/23) Impression: No acute osseous abnormality. Mild degenerative changes of the first metatarsophalangeal joint and midfoot. ASSESSMENT: This 68 year old male patient presents today with fracture to the proximal phalanx, first mpj arthritis, and Workers compensation claim. Plan: - A comprehensive history and physical examination were preformed. The patient was educated on clinical and radiographic findings, diagnosis and treatment plans. Patient state that he understands all that has been explained and all questions were answered to his apparent satisfaction. - Etiology and treatment options were discussed with the patient. - Dispensed work note -Reccommended formal Physical therapy. Patient defers at this time. Prefers to wait to see if symptoms continue to resolve. -MRI reviewed with patient and explained that no acute osseous or soft tissue injury noted. 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 These activities included Preparing to see the patient (review tests, labs), Performing a medically appropriate examination, Counseling and educating the patient and family, Referring and communicating with other health daycare assistant, Documenting clinical information in the EMR, Independently interpreting results and communicating results to the patient, and coordinating care. Raven GARCIAM PGY2 Alonso Strong DPM documented in this encounter [facility] 06-21-2023 Miscellaneous Notes Spoke with patient's partner, she said they will opt to go somewhere close to home in [place]. [facility] in [place], [place] MRI order and office note were faxed to the facility and confirmation was received. [facility] the [facility] of MRI Left foot/toes w/o contrast ([id number]). Approced dates: 06/21/23-07/07/23 They are requesting a copy of the results be faxed to [facility] [facility] within 5 days of the service. Called and left a detailed voicemail for the patient to schedule the MRI appointment through [facility] and call us back to make follow up. documented in this encounter [facility] 06-04-2023 Note Education Materials Cardiovascular Hypertension, Adult Hypertension is another name for high blood pressure. High blood pressure forces your heart to work harder to pump blood. This can cause problems over time. There are two numbers in a blood pressure reading. There is a top number (systolic) over a bottom number (diastolic). It is best to have a blood pressure that is below 120/80. What are the causes? The cause of this condition is not known. Some other conditions can lead to high blood pressure. What increases the risk? Some lifestyle factors can make you more likely to develop high blood pressure: ? Smoking. ? Not getting enough exercise or physical activity. ? Being overweight. ? Having too much fat, sugar, calories, or salt (sodium) in your diet. ? Drinking too much alcohol. Other risk factors include: ? Having any of these conditions: ? Heart disease. ? Diabetes. ? High cholesterol. ? Kidney disease. ? Obstructive sleep apnea. ? Having a family history of high blood pressure and high cholesterol. ? Age. The risk increases with age. ? Stress. What are the signs or symptoms? High blood pressure may not cause symptoms. Very high blood pressure (hypertensive crisis) may cause: ? Headache. ? Fast or uneven heartbeats (palpitations). ? Shortness of breath. ? Nosebleed. ? Vomiting or feeling like you may vomit (nauseous). ? Changes in how you see. ? Very bad chest pain. ? Feeling dizzy. ? Seizures. How is this treated? ? This condition is treated by making healthy lifestyle changes, such as: ? Eating healthy foods. ? Exercising more. ? Drinking less alcohol. ? Your doctor may prescribe medicine if lifestyle changes do not help enough and if: ? Your top number is above 130. ? Your bottom number is above 80. ? Your personal target blood pressure may vary. Follow these instructions at home: Eating and drinking ? If told, follow the DASH eating plan. To follow this plan: ? Fill one half of your plate at each meal with fruits and vegetables. ? Fill one fourth of your plate at each meal with whole grains. Whole grains include whole-wheat pasta, brown rice, and whole-grain bread. ? Eat or drink low-fat dairy products, such as skim milk or low-fat yogurt. ? Fill one fourth of your plate at each meal with low-fat (lean) proteins. Low-fat proteins include fish, chicken without skin, eggs, beans, and tofu. ? Avoid fatty meat, cured and processed meat, or chicken with skin. ? Avoid pre-made or processed food. ? Limit the amount of salt in your diet to less than 1,500 mg each day. ? Do not drink alcohol if: ? Your doctor tells you not to drink. ? You are , may be , or are planning to become . ? If you drink alcohol: ? Limit how much you have to: ? 0?1 drink a day for women. ? 0?2 drinks a day for men. ? Know how much alcohol is in your drink. In the [place] one drink equals one 12 oz bottle of beer (355 mL), one 5 oz glass of wine (148 mL), or one 1? oz glass of hard liquor (44 mL). Lifestyle ? Work with your doctor to stay at a healthy weight or to lose weight. Ask your doctor what the best weight is for you. ? Get at least 30 minutes of exercise that causes your heart to beat faster (aerobic exercise) most days of the week. This may include walking, swimming, or biking. ? Get at least 30 minutes of exercise that strengthens your muscles (resistance exercise) at least 3 days a week. This may include lifting weights or doing Pilates. ? Do not smoke or use any products that contain nicotine or tobacco. If you need help quitting, ask your doctor. ? Check your blood pressure at home as told by your doctor. ? Keep all follow-up visits. Medicines ? Take [id number]-izlegvf and prescription medicines only as told by your doctor. Follow directions carefully. ? Do not skip doses of blood pressure medicine. The medicine does not work as well if you skip doses. Skipping doses also puts you at risk for problems. ? Ask your doctor about side effects or reactions to medicines that you should watch for. Contact a doctor if: ? You think you are having a reaction to the medicine you are taking. ? You have headaches that keep coming back. ? You feel dizzy. ? You have swelling in your ankles. ? You have trouble with your vision. Get help right away if: ? You get a very bad headache. ? You start to feel mixed up (confused). ? You feel weak or numb. ? You feel faint. ? You have very bad pain in your: ? Chest. ? Belly (abdomen). ? You vomit more than once. ? You have trouble breathing. These symptoms may be an emergency. Get help right away. Call 911. ? Do not wait to see if the symptoms will go away. ? Do not drive yourself to the hospital. Summary ? Hypertension is another name for high blood pressure. ? High blood pressure forces your heart to work harder to (more content not included)... [facility] Evaluation note Diagnosis Injury of left foot, initial encounter documented in this encounter [facility] note* Diagnosis Crushing injury of left foot, subsequent encounter- Primary [facility] Diagnosis Injury of left foot, initial encounter- Primary documented in this encounter [facility] note* Diagnosis Gout, unspecified cause, unspecified chronicity, unspecified site [facility] Diagnosis Gout, unspecified cause, unspecified chronicity, unspecified site [facility] Diagnosis 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 and sioux heart without angina pectoris S/P PTCA (percutaneous transluminal coronary angioplasty) Postsurgical percutaneous transluminal coronary angioplasty status ST elevation myocardial infarction (STEMI), unspecified artery (Multi) Mixed hyperlipidemia Essential hypertension Unspecified essential hypertension Acute gout, unspecified cause, unspecified site BMI 32.0-32.9,adult Former smoker Personal history of tobacco use, presenting hazards to health documented in this encounter [facility] Work Phone: InstructionsNot on filedocumented in this encounter [facility] filedocumented in this encounter [facility] Summary Purpose Family History No Family History Records FoundNo Family History Records FoundNo Family History Records FoundNo Family History Records FoundNo Family History Records Found Advance Directives No Advanced Directives Records FoundDocuments on File Type Date 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 10/08/2024 9:42 AM POA 10/08/24 Additional Source Comments Source Comments (unrecognize d section and content) In the event this informatio n is protected by the Federal Confidentiality of Alcohol and Drug Abuse Patient Records regulations: The Federal rules restrict any use of the information to criminally investigate or prosecute any alcohol or drug abuse patient.[facility] the event this information is protected by the Federal Confidentiality of Alcohol and Drug Abuse Patient Records regulations: The Federal rules restrict any use of the information to criminally investigate or prosecute any alcohol or drug abuse patient.[facility] the event this information is protected by the Federal Confidentiality of Alcohol and Drug Abuse Patient Records regulations: The Federal rules restrict any use of the information to criminally investigate or prosecute any alcohol or drug abuse patient.[facility] Center[facility] the event this information is protected by the Federal Confidentiality of Alcohol and Drug Abuse Patient Records regulations: The Federal rules restrict any use of the information to criminally investigate or prosecute any alcohol or drug abuse patient.[facility] Reason for Visit (unrecogniz ed section and content) Reason Comments Insurance Authorization [facility] - MRI LT FT Reason Comments Patient Question Refill request Reason Comments Pain (foot) Reason Comments Med Refill Reason Onset Date Comments Preventative Screening 10/24/2024 Reason Comments Follow-up TCM,post stemi/postP CI (unrecognized sect ion and content) No Status Records FoundNo Status Records FoundNo Status Records FoundNo Status Records FoundNo Status Records Found INFORMATION SOURCE (unrecogn ized section and content) DATE CREATED AUTHOR 08/14/2023 [facility] DATE CREATED AUTHOR AUTHOR'S ORGANIZ ATION 07/27/2024 [facility] DATE CREATED AUTHOR AUTHOR'S ORGANIZ ATION 10/09/2024 [facility] DATE CREATED AUTHOR AUTHOR'S ORGANIZ ATION 11/04/2024 [facility] DATE CREATED AUTHOR AUTHOR'S ORGANIZ ATION 11/28/2024 [facility] [employer] 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 Teams (unrecognized sec tion and content) Braille Teacher Relationship Specialty Start Date End Date Sandra Foster MD [address], [place] [address] PCP - General Internal Medicine 01/27/23 Braille Teacher Relationship Specialty Start Date End Date Sandra Foster MD [address], [facility] [place] [address] PCP - General Internal Medicine 10/08/24 Braille Teacher Relationship Specialty Start Date End Date Dorcas Levi MD [address] [place] [address] PCP - General Family Medicine 10/22/24 Juana Isaac, scientific artistLeadership Development Instructor 10/22/24 FOR RECORDS PERTAINING TO PATIENTS WHO ARE OR HAVE BEEN ENROLLED IN A CHEMICAL DEPENDENCY/SUBSTANCEABUSE PROGRAM, SOME INFORMATION MAY BE OMITTED. This clinical summary was aggregated from multiple sources. Caution should be exercised in using it in the provision of clinical care. This summary normalizes information from multiple sources, and as a consequence, information in this document may materially change the coding, format and clinical context of patient data. In addition, data may be omitted in some cases. CLINICAL DECISIONS SHOULD BE BASED ON THE PRIMARY CLINICAL RECORDS. [facility] [facility]. provides no warranty or guarantee of the accuracy or completeness of information in this document.
[2024-11-29 14:43] LABS: Basophils Absolute Auto 0.1 10^3/uL (0.0-0.1); Basophils Percent Auto 0.5 % (0.2-2.0); Eosinophils Absolute Auto 0.1 10^3/uL (0.0-0.7); Eosinophils Percent Auto 0.9 % (0.9-7.0); Hematocrit 43.2 % (42.0-54.0); Hemoglobin 14.8 g/dL (14.0-18.0); Immature Granulocytes Abs Auto 0.16 10^3/uL (0.00-0.03); Immature Granulocytes Pct Auto 1.6 % (0.0-0.5); Lymphocytes Absolute Auto 1.9 10^3/uL (1.2-3.8); Lymphocytes Percent Auto 18.8 % (20.5-60.0); Mean Corpuscular HGB Conc 34.3 g/dL (29.9-35.2); Mean Corpuscular Hemoglobin 31.7 pg (25.9-34.0); Mean Corpuscular Volume 92.5 fL (80.0-94.0); Mean Platelet Volume 9.2 fL (9.5-13.5); Monocytes Absolute Auto 1.1 10^3/uL (0.3-0.8); Monocytes Percent Auto 10.4 % (1.7-12.0); Neutrophils Absolute Auto 6.9 10^3/uL (1.4-6.5); Neutrophils Percent Auto 67.8 % (43.0-75.0); Platelet Count 302 10^3/uL (150-450); Red Blood Count 4.67 10^6/uL (4.70-6.10); Red Cell Distribution Width 14.4 % (11.0-15.0); White Blood Count 10.2 10^3/uL (4.0-11.0)
[2024-11-29 15:00] LABS: Alanine Aminotransferase 24 U/L (16-63); Albumin Globulin Ratio 0.8; Albumin Level 3.5 g/dL (3.4-5.0); Alkaline Phosphatase 65 U/L (46-116); Anion Gap 16.2; Aspartate Amino Transferase 19 U/L (15-37); BUN Creatinine Ratio 12.3; Bilirubin Total 0.9 mg/dL (0.2-1.0); Calcium 9.4 mg/dL (8.5-10.1); Carbon Dioxide 22.6 mmol/L (21.0-32.0); Chloride 99 mmol/L (98-107); Estimated GFR (African America 58 (>=60 mL/min/1.73m^2); Estimated GFR (Non-African Ame 48 (>=60 mL/min/1.73m^2); Globulin 4.4 g/dL; Glucose 138 mg/dL (74-106); Potassium 3.8 mmol/L (3.5-5.1); Sodium 134 mmol/L (136-145); Thyroid Stimulating Hormone 2.336 uIU/mL (0.358-3.740); Total Protein 7.9 g/dL (6.4-8.2); Troponin I High Sensitivity 15.4 pg/mL (4.0-76.1)
[2024-11-29 15:25] LABS: Free T4 1.53 ng/dL (0.76-1.46)
== END 2024-11-29 14:07 | disposition home or self-care (01) ==
LOC: LAB 14:08
PROVIDERS: PCP Family Medicine; Visit Provider Family Medicine
DX: I21.19 ST elevation (STEMI) myocardial infarction involving other coronary artery of inferior wall (principal); I50.30 Unspecified diastolic (congestive) heart failure; I11.0 Hypertensive heart disease with heart failure
CPT/HCPCS: 36415; 80053; 83880; 84439; 84443; 84484; 85025

== ENCOUNTER 2024-12-10 13:20 | Outpatient (OUT) | payer MEDICARE, SELFPAY ==
--- OUTSIDE RECORDS SUMMARY | 2024-12-10 13:32 | XMS_ITS | CCD ---
Author Organization [facility] Care Team Providers Care Slag Worker Name Role Phone Unavailable Primary Care Provider UnavailSandra Ballesteros MD Primary Care Unavailable Alonso Strong Admitting Unavailable Alonso Strong Attending Unavailable Sandra Foster MD Primary Care Unavailable Prabhakar Meza Admitting Unavailable Prabhakar Meza Attending Unavailable Sandra Foster MD Primary Care Provider SANDRA FOSTER Attending Unavailable SANDRA FOSTER Referring Unavailable SANDRA FOSTER Primary Care Unavailable SANDRA FOSTER Primary Care Unavailable HARDEEP ESTEVES Attending Unavailable Sandra Foster MD Primary Care Provider Melva Smallwood Admitting Unavailable Melva Smallwood Attending Unavailable Dorcas Levi Primary Care Unavailable Dede Jameson Unavailable Dorcas Levi MD Primary Care Provider [phone] Poncho HEALY, [place] Unavailable Unavailable JORDEN SMALLWOOD Attending Unavailable DORCAS LEVI Primary Care Unavailable Medications Current Medications Medication Drug Class(es) Dates Sig (Normalized) Sig (Original) acetaminophen 325 mg / HYDROcodone bitartrate 5 mg oral tablet (1 source) Opioid Agonist Start: 10-28-2024 take 1 tablet by mouth every four hours as needed HYDROcodone-acetam inophen ([place]) 5-325 mg tablet Take 1 tablet by [...] Coronary arteriosclerosis; Translations: [Atherosclerotic heart disease of [place] coronary artery without angina pectoris] Onset: 10-25-2024 [...] gap [Moles/Vol] 13.2 mmol/L Normal 6.0-15.0 [facility] Comment on above: Performed By: #### C BC, BMP #### [facility] [address] [place] [address] [place] Calcium [Mass/Vol] 9.1 mg/dL Normal 8.6-10.3 [facility] Comment on above: Performed By: #### C BC, BMP #### [facility] [address] [place] [address] [place] Chloride [Moles/Vol] 104 mmol/L Normal 98-107 [facility] Comment on above: Performed By: #### C BC, BMP #### [facility] [address] [place] [address] [place] CO2 [Moles/Vol] 22.8 mmol/L Normal 21.0-31.0 [facility] Comment on above: Performed By: #### C BC, BMP #### [facility] [address] [place] [id number] [place] Creatinine [Mass/Vol] 1.05 mg/dL Normal 0.70-1.30 [facility] Comment on above: Performed By: #### C BC, BMP #### [facility] [address] [place] [address] [place] Creatinine Clr Calc Pharmacy 84.20 Normal [facility] Comment on above: Result Comment: PERF ORMED BY: [place] [address] PATHOLOGIST WOLF HUNTER AMELIA BROWN M.D. Performed By: #### C BC, BMP #### [place] [address] [place] GFR/1.73 sq M.predicted MDRD (S/P/Bld) [Vol rate/Area] mL/min/{1.73_m2} Normal [facility] Comment on above: Performed By: #### C BC, BMP #### [address] Glucose [Mass/Vol] 106 mg/dL High 70-100 [facility] Comment on above: Result Comment: [place] Glucose Reference Range is dependent on time and content of last meal. Glucose of more than 200 mg/dL in a nonstressed, ambulatory subject supports the diagnosis of Diabetes Mellitus. ADA recommended reference range Performed By: #### C BC, BMP #### [address] Potassium [Moles/Vol] 4.0 mmol/L Normal 3.5-5.1 [facility] Comment on above: Performed By: #### C BC, BMP #### [address] Sodium [Moles/Vol] 136 mmol/L Normal 136-145 [facility] Comment on above: Performed By: #### C BC, BMP #### [address] Urea nitrogen [Mass/Vol] 24 mg/dL Normal 7-25 [facility] Comment on above: Performed By: #### C BC, BMP #### [address] Complete Blood Count Auto Di ffon 10-22-2024 Basophils (Bld) [#/Vol] 0.1 10*3/uL Normal 0.0-0.2 [facility] Comment on above: Result Comment: PERF ORMED BY: [place] [address] PATHOLOGIST WOLF HUNTER AMELIA BROWN M.D. Performed By: #### C BC, BMP #### [place] [address] [place] Basophils/100 WBC (Bld) 0.5 % Normal . [facility] Comment on above: Performed By: #### C BC, BMP #### [facility] [address] [place] [address] [place] Eosinophils (Bld) [#/Vol] 0.2 10*3/uL Normal 0.0-0.45 [facility] Comment on above: Performed By: #### C BC, BMP #### [facility] [address] [place] [id number] [place] Eosinophils/100 WBC (Bld) 2.1 % Normal . [facility] Comment on above: Performed By: #### C BC, BMP #### [facility] [address] Erythrocyte distribution width (RBC) [Ratio] 13.3 % Normal 12.0-14.8 [facility] Comment on above: Performed By: #### C BC, BMP #### [address] Hematocrit (Bld) [Volume fraction] 41.1 % Normal 38.8-50.0 [facility] Comment on above: Performed By: #### C BC, BMP #### [place] [address] [place] Hemoglobin (Bld) [Mass/Vol] 14.0 g/dL Normal 13.0-17.0 [facility] Comment on above: Performed By: #### C BC, BMP #### [place] [address] [place] Lymphocytes (Bld) [#/Vol] 1.2 10*3/uL Normal 1.00-4.8 [facility] Comment on above: Performed By: #### C BC, BMP #### [place] [id number] [place] Lymphocytes/100 WBC (Bld) 11.3 % Normal . [facility] Comment on above: Performed By: #### C BC, BMP #### [address] MCH (RBC) [Entitic mass] 32.3 pg Normal 27.5-35.2 [facility] Comment on above: Performed By: #### C BC, BMP #### [address] MCV (RBC) [Entitic vol] 94.4 fL Normal 83.5-101 [facility] Comment on above: Performed By: #### C BC, BMP #### [address] Mean Corpuscular HGB Conc 34.2 g/dL Normal 32.5-35.6 [facility] Comment on above: Performed By: #### C BC, BMP #### [address] Monocytes (Bld) [#/Vol] 1.2 10*3/uL High 0.0-0.8 [facility] Comment on above: Performed By: #### C BC, BMP #### [address] Monocytes/100 WBC (Bld) 10.9 % Normal . [facility] Comment on above: Performed By: #### C BC, BMP #### [address] Neutrophils (Bld) [#/Vol] 8.1 10*3/uL High 1.8-7.7 [facility] Comment on above: Performed By: #### C BC, BMP #### [address] Neutrophils/100 WBC (Bld) 75.2 % Normal . [facility] Comment on above: Performed By: #### C BC, BMP #### [address] NRBC% 0.0 /100{WBC} Normal 0-0.5 [facility] Comment on above: Performed By: #### C BC, BMP #### [address] Platelet mean volume (Bld) [Entitic vol] 8.1 fL Normal 6.6-10.1 [facility] Comment on above: Performed By: #### C BC, BMP #### [facility] [address] [place] [id number] [facility] Platelets (Bld) [#/Vol] 213 10*3/uL Normal 150-450 [facility] Comment on above: Performed By: #### C BC, BMP #### [facility] [address] RBC (Bld) [#/Vol] 4.35 10*6/uL Normal 3.90-5.60 [facility] Comment on above: Performed By: #### C BC, BMP #### [facility] [address] [place] [id number] [facility] WBC (Bld) [#/Vol] 10.8 10*3/uL High 4.1-10.5 [facility] Comment on above: Performed By: #### C BC, BMP #### [facility] [address] ECG 12 lead ECGon 10-22-2024 ECG 12 lead ECG [facility] Main [place] [address] [place] [address] Electrocardiograph Report Signed Patient: Horacio Soto MR#: [id number] 875 : 1955 Acct:[id number] Age/Sex: 69 / M ADM Date: 10/19/24 Loc: Room: [address] [place] [address] Type: DIS IN Attending Dr: Melva Smallwood [...] by 38 bpm Confirmed by HUSEYIN HART [facility] on 10/22/2024 3:27:50 PM Referred By: Electronically Signed By: WILFREDO WING MD [facility] Transcribed By: MUS Signed By Wilfredo Wing MD, [facility] 10/22/24 1527 Normal [facility] Troponin I High Sensitivityo n 10-22-2024 Troponin I High Sensitivity 576.8 pg/mL Off scale high 0.0-20.0 [facility] Comment on above: Result Comment: Crit ical Result : Called to and read back by: TOÑO SUMMERS at: 10/22/2024 05:36:18 by:NEPTALI PERFORMED BY: [place] [address] PATHOLOGIST WOLF HUNTER AMELIA BROWN M.D. Performed By: #### G DONNA #### Point of Care testing , Basic Metabolic Panelon 10-06 Anion gap [Moles/Vol] 16.4 mmol/L High 6.0-15.0 [facility] Comment on above: Performed By: #### C BC, BMP #### [address] Calcium [Mass/Vol] 9.8 mg/dL Normal 8.6-10.3 [facility] Comment on above: Performed By: #### C BC, BMP #### [address] Chloride [Moles/Vol] 103 mmol/L Normal 98-107 [facility] Comment on above: Performed By: #### C BC, BMP #### [address] CO2 [Moles/Vol] 21.1 mmol/L Normal 21.0-31.0 [facility] Comment on above: Performed By: #### C BC, BMP #### [address] Creatinine [Mass/Vol] 1.07 mg/dL Normal 0.70-1.30 [facility] Comment on above: Performed By: #### C BC, BMP #### [place] [address] [place] Creatinine Clr Calc Pharmacy 82.63 Normal [facility] Comment on above: Result Comment: PERF ORMED BY: [place] [address] PATHOLOGIST WOLF HUNTER AMELIA BROWN M.D. Performed By: #### C BC, BMP #### [place] [address] [place] GFR/1.73 sq M.predicted MDRD (S/P/Bld) [Vol rate/Area] mL/min/{1.73_m2} Normal [facility] Comment on above: Performed By: #### C BC, BMP #### [address] Glucose [Mass/Vol] 125 mg/dL High 70-100 [facility] Comment on above: Result Comment: [place] Glucose Reference Range is dependent on time and content of last meal. Glucose of more than 200 mg/dL in a nonstressed, ambulatory subject supports the diagnosis of Diabetes Mellitus. ADA recommended reference range Performed By: #### C BC, BMP #### [address] Potassium [Moles/Vol] 4.5 mmol/L Normal 3.5-5.1 [facility] Comment on above: Performed By: #### C BC, BMP #### [address] Sodium [Moles/Vol] 136 mmol/L Normal 136-145 [facility] Comment on above: Performed By: #### C BC, BMP #### [place] [address] [place] Urea nitrogen [Mass/Vol] 19 mg/dL Normal 7-25 [facility] Comment on above: Performed By: #### C BC, BMP #### [address] Complete Blood Count Auto Di ffon 10-21-2024 Basophils (Bld) [#/Vol] 0.1 10*3/uL Normal 0.0-0.2 [facility] Comment on above: Result Comment: PERF ORMED BY: [place] [address] PATHOLOGIST WOLF HUNTER AMELIA BROWN M.D. Performed By: #### C BC, BMP #### [address] Basophils/100 WBC (Bld) 0.8 % Normal . [facility] Comment on above: Performed By: #### C BC, BMP #### [address] Eosinophils (Bld) [#/Vol] 0.1 10*3/uL Normal 0.0-0.45 [facility] Comment on above: Performed By: #### C BC, BMP #### [address] Eosinophils/100 WBC (Bld) 0.9 % Normal . [facility] Comment on above: Performed By: #### C BC, BMP #### [address] Erythrocyte distribution width (RBC) [Ratio] 13.2 % Normal 12.0-14.8 [facility] Comment on above: Performed By: #### C BC, BMP #### [address] Hematocrit (Bld) [Volume fraction] 42.1 % Normal 38.8-50.0 [facility] Comment on above: Performed By: #### C BC, BMP #### [address] Hemoglobin (Bld) [Mass/Vol] 14.4 g/dL Normal 13.0-17.0 [facility] Comment on above: Performed By: #### C BC, BMP #### [address] Lymphocytes (Bld) [#/Vol] 1.8 10*3/uL Normal 1.00-4.8 [facility] Comment on above: Performed By: #### C BC, BMP #### [address] Lymphocytes/100 WBC (Bld) 13.4 % Normal . [facility] Comment on above: Performed By: #### C BC, BMP #### [address] MCH (RBC) [Entitic mass] 32.0 pg Normal 27.5-35.2 [facility] Comment on above: Performed By: #### C BC, BMP #### [address] MCV (RBC) [Entitic vol] 93.6 fL Normal 83.5-101 [facility] Comment on above: Performed By: #### C BC, BMP #### [address] Mean Corpuscular HGB Conc 34.2 g/dL Normal 32.5-35.6 [facility] Comment on above: Performed By: #### C BC, BMP #### [address] Monocytes (Bld) [#/Vol] 1.5 10*3/uL High 0.0-0.8 [facility] Comment on above: Performed By: #### C BC, BMP #### [address] Monocytes/100 WBC (Bld) 11.4 % Normal . [facility] Comment on above: Performed By: #### C BC, BMP #### [address] Neutrophils (Bld) [#/Vol] 9.7 10*3/uL High 1.8-7.7 [facility] Comment on above: Performed By: #### C BC, BMP #### [address] Neutrophils/100 WBC (Bld) 73.5 % Normal . [facility] Comment on above: Performed By: #### C BC, BMP #### [address] NRBC% 0.1 /100{WBC} Normal 0-0.5 [facility] Comment on above: Performed By: #### C MELISSA, BMP #### [address] Platelet mean volume (Bld) [Entitic vol] 7.9 fL Normal 6.6-10.1 [facility] Comment on above: Performed By: #### C MELISSA, BMP #### [address] Platelets (Bld) [#/Vol] 270 10*3/uL Normal 150-450 [facility] Comment on above: Performed By: #### C MELISSA, BMP #### [address] RBC (Bld) [#/Vol] 4.50 10*6/uL Normal 3.90-5.60 [facility] Comment on above: Performed By: #### C MELISSA, BMP #### [address] WBC (Bld) [#/Vol] 13.3 10*3/uL High 4.1-10.5 [facility] Comment on above: Performed By: #### C MELISSA, BMP #### [address] ECG 12 lead ECGon 10-21-2024 ECG 12 lead ECG [facility] Main [place] [address] [place] [address] Electrocardiograph Report Signed Patient: Horacio Soto MR#: [id number] 875 : 1955 Acct:[id number] Age/Sex: 69 / M ADM Date: 10/19/24 Loc: Room: [address] [place] [address] Type: ADM IN Attending Dr: Melva Smallwood [...] By: Electronically Signed By: WILFREDO WING MD [facility] Transcribed By: MUS Signed By Wilfredo Wing MD, FACC 10/21/24 1201 Normal [facility] ECG 12 lead ECG [facility] [place] [place] [address] Electrocardiograph Report Signed Patient: Horacio Soto MR#: [id number] 875 : 1955 Acct:[id number] Age/Sex: 69 / M ADM Date: 10/19/24 Loc: Room: [address] [place] [address] Type: DIS IN Attending Dr: Melva Smallwood [...] By: MUS Signed By Wilfredo Wing MD, [facility] 10/26/24 0923 Normal [facility] ECH echo transthoracicon ECH echo transthoracic [facility] Main [address] [address] Echocardiogram Signed Patient: Horacio Soto MR#: [id number] 875 : 1955 Acct:[id number] Age/Sex: 69 / M ADM Date: 10/19/24 Loc: Room: [address] [place] [address] Type: ADM IN Attending Dr: Melva Smallwood DO Ordering Provider: Melva Smallwood DO Date of Service: 10/20/24 ECH/ECH echo transthoracic: inferolateral stemi Copies to: Wilfredo Wing MD, FACC Melva Smallwood DO Weight: 245 lb Performed By: Myesha Harris RDCS BSA: 2.3 m2 BP: 180/84 mmHg HR: 71 Reason For Study: inferolateral stemi History: [place], HTN, Former smoker Interpretation Summary The left [...] 10/21/24 1245 Signed By: Wilfredo Wing MD, [facility] 10/21/24 1847 Normal [facility] Glucose Poct Glucometerson 1 12-22-2023 Glucose [Mass/Vol] 124 mg/dL Normal [facility] Comment on above: Result Comment: [place] Glucose Reference Range is dependent on time and content of last meal. Glucose of more than 200 mg/dL in a nonstressed, ambulatory subject supports the diagnosis of Diabetes Mellitus. PERFORMED BY: [facility] [place] [address] PATHOLOGIST WOLF HUNTER AMELIA BROWN M.D. Performed By: #### G LULS #### Point of Care testing , Troponin I High Sensitivityo n 10-21-2024 Troponin I High Sensitivity 868.9 pg/mL Off scale high 0.0-20.0 [facility] Comment on above: Result Comment: Crit ical Result : Called to and read back by: TOÑO SUMMERS at: 10/21/2024 02:42:46 by:NEPTALI PERFORMED BY: [facility] [address] [place] [address] PATHOLOGIST WOLF HUNTER AMELIA BROWN M.D. Performed By: #### H S TROP #### [address] Basic Metabolic Panelon 12- Anion gap [Moles/Vol] 14.5 mmol/L Normal 6.0-15.0 [facility] Comment on above: Performed By: #### C BC, BMP #### [address] Calcium [Mass/Vol] 9.7 mg/dL Normal 8.6-10.3 [facility] Comment on above: Performed By: #### C BC, BMP #### [address] Chloride [Moles/Vol] 102 mmol/L Normal 98-107 [facility] Comment on above: Performed By: #### C BC, BMP #### [address] CO2 [Moles/Vol] 22.9 mmol/L Normal 21.0-31.0 [facility] Comment on above: Performed By: #### C BC, BMP #### [address] Creatinine [Mass/Vol] 0.95 mg/dL Normal 0.70-1.30 [facility] Comment on above: Performed By: #### C BC, BMP #### [place] [address] [place] Creatinine Clr Calc Pharmacy 93.82 Normal [facility] Comment on above: Performed By: #### C BC, BMP #### [place] [address] [place] GFR/1.73 sq M.predicted MDRD (S/P/Bld) [Vol rate/Area] mL/min/{1.73_m2} Normal [facility] Comment on above: Performed By: #### C BC, BMP #### [address] Glucose [Mass/Vol] 119 mg/dL High 70-100 [facility] Comment on above: Result Comment: [place] Glucose Reference Range is dependent on time and content of last meal. Glucose of more than 200 mg/dL in a nonstressed, ambulatory subject supports the diagnosis of Diabetes Mellitus. ADA recommended reference range Performed By: #### C BC, BMP #### [address] Potassium [Moles/Vol] 4.4 mmol/L Normal 3.5-5.1 [facility] Comment on above: Performed By: #### C BC, BMP #### [address] Sodium [Moles/Vol] 135 mmol/L Low 136-145 [facility] Comment on above: Performed By: #### C BC, BMP #### [address] Urea nitrogen [Mass/Vol] 17 mg/dL Normal 7-25 [facility] Comment on above: Performed By: #### C BC, BMP #### [address] Complete Blood Count Auto Di ffon 10-20-2024 Basophils (Bld) [#/Vol] 0.1 10*3/uL Normal 0.0-0.2 [facility] Comment on above: Result Comment: PERF ORMED BY: [place] [address] PATHOLOGIST WOLF HUNTER AMELIA BROWN M.D. Performed By: #### C BC, BMP #### [place] [address] [place] Basophils/100 WBC (Bld) 0.5 % Normal . [facility] Comment on above: Performed By: #### C BC, BMP #### [address] Eosinophils (Bld) [#/Vol] 0.0 10*3/uL Normal 0.0-0.45 [facility] Comment on above: Performed By: #### C BC, BMP #### [address] Eosinophils/100 WBC (Bld) 0.3 % Normal . [facility] Comment on above: Performed By: #### C BC, BMP #### [address] Erythrocyte distribution width (RBC) [Ratio] 13.5 % Normal 12.0-14.8 [facility] Comment on above: Performed By: #### C BC, BMP #### [address] Hematocrit (Bld) [Volume fraction] 40.3 % Normal 38.8-50.0 [facility] Comment on above: Performed By: #### C BC, BMP #### [address] Hemoglobin (Bld) [Mass/Vol] 13.9 g/dL Normal 13.0-17.0 [facility] Comment on above: Performed By: #### C BC, BMP #### [address] Lymphocytes (Bld) [#/Vol] 0.9 10*3/uL Low 1.00-4.8 [facility] Comment on above: Performed By: #### C BC, BMP #### [address] Lymphocytes/100 WBC (Bld) 7.3 % Normal . [facility] Comment on above: Performed By: #### C BC, BMP #### [address] MCH (RBC) [Entitic mass] 32.1 pg Normal 27.5-35.2 [facility] Comment on above: Performed By: #### C BC, BMP #### [address] MCV (RBC) [Entitic vol] 93.2 fL Normal 83.5-101 [facility] Comment on above: Performed By: #### C BC, BMP #### [address] Mean Corpuscular HGB Conc 34.5 g/dL Normal 32.5-35.6 [facility] Comment on above: Performed By: #### C BC, BMP #### [address] Monocytes (Bld) [#/Vol] 1.1 10*3/uL High 0.0-0.8 [facility] Comment on above: Performed By: #### C BC, BMP #### [address] Monocytes/100 WBC (Bld) 9.2 % Normal . [facility] Comment on above: Performed By: #### C BC, BMP #### [address] Neutrophils (Bld) [#/Vol] 9.9 10*3/uL High 1.8-7.7 [facility] Comment on above: Performed By: #### C BC, BMP #### [address] Neutrophils/100 WBC (Bld) 82.7 % Normal . [facility] Comment on above: Performed By: #### C BC, BMP #### [address] NRBC% 0.1 /100{WBC} Normal 0-0.5 [facility] Comment on above: Performed By: #### C BC, BMP #### [address] Platelet mean volume (Bld) [Entitic vol] 8.2 fL Normal 6.6-10.1 [facility] Comment on above: Performed By: #### C BC, BMP #### [address] Platelets (Bld) [#/Vol] 257 10*3/uL Normal 150-450 [facility] Comment on above: Performed By: #### C BC, BMP #### [address] RBC (Bld) [#/Vol] 4.33 10*6/uL Normal 3.90-5.60 [facility] Comment on above: Performed By: #### C BC, BMP #### [address] WBC (Bld) [#/Vol] 12.0 10*3/uL High 4.1-10.5 [facility] Comment on above: Performed By: #### C BC, BMP #### [address] Basophils (Bld) [#/Vol] 0.1 10*3/uL Normal 0.0-0.2 [facility] Comment on above: Result Comment: PERF ORMED BY: [place] [address] PATHOLOGIST WOLF HUNTER AMELIA BROWN M.D. Performed By: #### G LULS #### Point of Care testing , Basophils/100 WBC (Bld) 0.7 % Normal . [facility] Comment on above: Performed By: #### G LULS #### Point of Care testing , Eosinophils (Bld) [#/Vol] 0.1 10*3/uL Normal 0.0-0.45 [facility] Comment on above: Performed By: #### G LULS #### Point of Care testing , Eosinophils/100 WBC (Bld) 0.4 % Normal . [facility] Comment on above: Performed By: #### G LULS #### Point of Care testing , Erythrocyte distribution width (RBC) [Ratio] 13.2 % Normal 12.0-14.8 [facility] Comment on above: Performed By: #### G LULS #### Point of Care testing , Hematocrit (Bld) [Volume fraction] 42.8 % Normal 38.8-50.0 [facility] Comment on above: Performed By: #### G LULS #### Point of Care testing , Hemoglobin (Bld) [Mass/Vol] 14.6 g/dL Normal 13.0-17.0 [facility] Comment on above: Performed By: #### G LULS #### Point of Care testing , Lymphocytes (Bld) [#/Vol] 1.2 10*3/uL Normal 1.00-4.8 [facility] Comment on above: Performed By: #### G LULS #### Point of Care testing , Lymphocytes/100 WBC (Bld) 10.3 % Normal . [facility] Comment on above: Performed By: #### G LULS #### Point of Care testing , MCH (RBC) [Entitic mass] 31.9 pg Normal 27.5-35.2 [facility] Comment on above: Performed By: #### G LULS #### Point of Care testing , MCV (RBC) [Entitic vol] 93.6 fL Normal 83.5-101 [facility] Comment on above: Performed By: #### G LULS #### Point of Care testing , Mean Corpuscular HGB Conc 34.1 g/dL Normal 32.5-35.6 [facility] Comment on above: Performed By: #### G LULS #### Point of Care testing , Monocytes (Bld) [#/Vol] 1.2 10*3/uL High 0.0-0.8 [facility] Comment on above: Performed By: #### G LULS #### Point of Care testing , Monocytes/100 WBC (Bld) 9.9 % Normal . [facility] Comment on above: Performed By: #### G LULS #### Point of Care testing , Neutrophils (Bld) [#/Vol] 9.3 10*3/uL High 1.8-7.7 [facility] Comment on above: Performed By: #### G LULS #### Point of Care testing , Neutrophils/100 WBC (Bld) 78.7 % Normal . [facility] Comment on above: Performed By: #### G LULS #### Point of Care testing , NRBC% 0.0 /100{WBC} Normal 0-0.5 [facility] Comment on above: Performed By: #### G LULS #### Point of Care testing , Platelet mean volume (Bld) [Entitic vol] 7.9 fL Normal 6.6-10.1 [facility] Comment on above: Performed By: #### G LULS #### Point of Care testing , Platelets (Bld) [#/Vol] 252 10*3/uL Normal 150-450 [facility] Comment on above: Performed By: #### G LULS #### Point of Care testing , RBC (Bld) [#/Vol] 4.57 10*6/uL Normal 3.90-5.60 [facility] Comment on above: Performed By: #### G LULS #### Point of Care testing , WBC (Bld) [#/Vol] 11.9 10*3/uL High 4.1-10.5 [facility] Comment on above: Performed By: #### G LULS #### Point of Care testing , Comprehensive Metabolic Pane van 10-20-2024 Albumin [Mass/Vol] 4.4 g/dL Normal 3.5-5.7 [facility] Comment on above: Performed By: #### G MARELYLS #### Point of Care testing , Albumin/Globulin [Mass ratio] 1.5 {ratio} Normal [facility] Comment on above: Performed By: #### G LULS #### Point of Care testing , ALP [Catalytic activity/Vol] 37 U/L Normal 34-104 [facility] Comment on above: Performed By: #### G LULS #### Point of Care testing , ALT [Catalytic activity/Vol] 23 U/L Normal 7-52 [facility] Comment on above: Performed By: #### G LULS #### Point of Care testing , Anion gap [Moles/Vol] 16.1 mmol/L High 6.0-15.0 [facility] Comment on above: Performed By: #### G LULS #### Point of Care testing , AST [Catalytic activity/Vol] 23 U/L Normal 13-39 [facility] Comment on above: Performed By: #### G LULS #### Point of Care testing , Bilirubin [Mass/Vol] 0.8 mg/dL Normal 0.3-1.0 [facility] Comment on above: Performed By: #### G LULS #### Point of Care testing , Calcium [Mass/Vol] 9.7 mg/dL Normal 8.6-10.3 [facility] Comment on above: Performed By: #### G LULS #### Point of Care testing , Chloride [Moles/Vol] 100 mmol/L Normal 98-107 [facility] Comment on above: Performed By: #### G LULS #### Point of Care testing , CO2 [Moles/Vol] 22.3 mmol/L Normal 21.0-31.0 [facility] Comment on above: Performed By: #### G LULS #### Point of Care testing , Creatinine [Mass/Vol] 1.01 mg/dL Normal 0.70-1.30 [facility] Comment on above: Performed By: #### G LULS #### Point of Care testing , Creatinine Clr Calc Pharmacy 88.24 Normal [facility] Comment on above: Performed By: #### G LULS #### Point of Care testing , GFR/1.73 sq M.predicted MDRD (S/P/Bld) [Vol rate/Area] mL/min/{1.73_m2} Normal [facility] Comment on above: Performed By: #### G LULS #### Point of Care testing , Globulin (S) [Mass/Vol] 3.0 g/dL Normal [facility] Comment on above: Performed By: #### G LULS #### Point of Care testing , Glucose [Mass/Vol] 121 mg/dL High 70-100 [facility] Comment on above: Result Comment: [place] Glucose Reference Range is dependent on time and content of last meal. Glucose of more than 200 mg/dL in a nonstressed, ambulatory subject supports the diagnosis of Diabetes Mellitus. ADA recommended reference range Performed By: #### G LULS #### Point of Care testing , Potassium [Moles/Vol] 4.4 mmol/L Normal 3.5-5.1 [facility] Comment on above: Performed By: #### G LULS #### Point of Care testing , Protein [Mass/Vol] 7.4 g/dL Normal 6.4-8.9 [facility] Comment on above: Performed By: #### G LULS #### Point of Care testing , Sodium [Moles/Vol] 134 mmol/L Low 136-145 [facility] Comment on above: Performed By: #### G LULS #### Point of Care testing , Urea nitrogen [Mass/Vol] 17 mg/dL Normal 7-25 [facility] Comment on above: Performed By: #### G LULS #### Point of Care testing , ECG 12 lead ECGon 10-20-2024 ECG 12 lead ECG [facility] Main [place] [address] [place] [address] Electrocardiograph Report Signed Patient: Horacio Soto MR#: [id number] 875 : 1955 Acct:[id number] Age/Sex: 69 / M ADM Date: 10/19/24 Loc: Room: [address] [place] [address] Type: ADM IN Attending Dr: Melva Smallwood [...] Bailey MD 1 12/21/23 1309 Normal [facility] ECG 12 lead ECG [facility] Main [place] [id number] Electrocardiograph Report Signed Patient: Horacio Soto MR#: [id number] 875 : 1955 Acct:[id number] Age/Sex: 69 / M ADM Date: 10/19/24 Loc: 4C Room: [address] [place] [address] Type: ADM IN Attending Dr: Melva Smallwood [...] consider inferolateral injury or acute infarct ACUTE LA / STEMI Consider right ventricular involvement in acute inferior infarct Abnormal ECG When compared with ECG of 20-Oct-2024 01:36, No significant change was found Confirmed by CLEMENTE BAILEY MD ([id number]) on 10/20/2024 5:22:45 PM Referred By: Electronically Signed By: CLEMENTE BAILEY MD Transcribed By: MUS Signed By Clemente Bailey MD 1 12/21/23 1722 Normal [facility] ECG 12 lead ECG [facility] Main [place] [id number] Electrocardiograph Report Signed Patient: Horacio Soto MR#: [id number] 875 : 1955 Acct:[id number] Age/Sex: 69 / M ADM Date: 10/19/24 Loc: 4C Room: [address] [place] [address] Type: ADM IN Attending Dr: Melva Smallwood [...] consider inferior injury or acute infarct ACUTE LA / STEMI Consider right ventricular involvement in [...] Bailey MD 1 12/21/23 1309 Normal [facility] Lipid Panelon 10-20-2024 Cholesterol [Mass/Vol] 130 mg/dL Low 140-200 [facility] Comment on above: Result Comment: Chol less than 200 mg/dl low risk Chol 201-239 mg/dl borderline risk Chol 240 mg/dl and greater high risk Performed By: #### G LULS #### Point of Care testing , Cholesterol in HDL [Mass/Vol] 74 mg/dL Normal 23-92 [facility] Comment on above: Result Comment: HDL CHOL ATP-III CLASSIFICATION Cardiovascular Risk HDL > or equal to 60 mg/dL LOW HDL < 40 mg/dL HIGH Performed By: #### G LULS #### Point of Care testing , Cholesterol.total/Ch olesterol in HDL [Mass ratio] 1.8 {ratio} Normal <5.0 [facility] Comment on above: Result Comment: PERF ORMED BY: [facility] [address] [place] [address] PATHOLOGIST WOLF HUNTER AMELIA BROWN M.D. Performed By: #### G LULS #### Point of Care testing , LDL Cholesterol,Calculat ed 42 mg/dL Normal 0-100 [facility] Comment on above: Result Comment: LDL ATP III CLASSIFICATION LDL less than 100 mg/dL Optimal LDL 100-129 mg/dL Near or above optimal LDL 130-159 mg/dL Borderline high LDL 160-189 mg/dL High LDL greater than 189 mg/dL Very high Performed By: #### G LULS #### Point of Care testing , Triglyceride w/Reflex 68 mg/dL Normal 0-149 [facility] Comment on above: Result Comment: TRIG ATP III CLASSIFICATION TRIG less than 150 mg/dL Normal TRIG 150-199 mg/dL Borderline high TRIG 200-500 mg/dL High TRIG greater than 500 mg/dL Very high Standard traceable to the Center for Disease Conrtrol and Prevention (CDC) test method. Performed By: #### G LULS #### Point of Care testing , VLDL CHOLESTEROL 13 mg/dL Normal [facility] Comment on above: Performed By: #### G LULS #### Point of Care testing , Magnesiumon 10-20-2024 Magnesium [Mass/Vol] 1.8 mg/dL Low 1.9-2.7 [facility] Comment on above: Result Comment: PERF ORMED BY: [place] [address] PATHOLOGIST WOLF HUNTER AMELIA BROWN M.D. Performed By: #### G LULS #### Point of Care testing , Troponin I High Sensitivityo n 10-20-2024 Troponin I High Sensitivity 738.9 pg/mL Off scale high 0.0-20.0 [facility] Comment on above: Result Comment: Crit ical Result : Called to and read back by: SENDY THURMAN at: 10/20/2024 05:35:02 by:[id number] PERFORMED BY: [facility] [address] [place] [address] PATHOLOGIST WOLF HUNTER AMELIA BROWN M.D. Performed By: #### G LULS #### Point of Care testing , Troponin I High Sensitivity 652.2 pg/mL Off scale high 0.0-20.0 [facility] Comment on above: Result Comment: Crit ical Result : Called to and read back by: SENDY THURMAN at: 10/20/2024 03:06:12 by:[id number] PERFORMED BY: [address] [address] PATHOLOGIST WOLF HUNTER AMELIA BROWN M.D. Performed By: #### G LULS #### Point of Care testing , ECG 12 lead ECGon 10-19-2024 ECG 12 lead ECG [facility] Main [address] [address] Electrocardiograph Report Signed Patient: Horacio Soto MR#: [id number] 875 : 1955 Acct:[id number] Age/Sex: 69 / M ADM Date: 10/19/24 Loc: Room: [address] [place] [address] Type: ADM IN Attending Dr: Melva Smallwood [...] Bailey MD 1 12/21/23 1309 Normal [facility] Troponin I High Sensitivityo n 10-19-2024 Troponin I High Sensitivity 149.0 pg/mL Off scale high 0.0-20.0 [facility] Comment on above: Result Comment: Crit ical Result : Called to and read back by: SENDY THURMAN at: 10/19/2024 21:36:24 by:[id number] PERFORMED BY: [place] [id number] PATHOLOGIST WOLF HUNTER AMELIA BROWN M.D. Performed By: #### H S TROP #### [address] Troponin I High Sensitivity 120.2 pg/mL Off scale high 0.0-20.0 [facility] Comment on above: Result Comment: Crit ical Result : Called to and read back by: DEREK CORREA at: 10/19/2024 20:01:05 by:[id number] PERFORMED BY: [id number] PATHOLOGIST WOLF HUNTER AMELIA BROWN M.D. Performed By: #### C BC, BMP #### [address] Troponin I High Sensitivity 107.3 pg/mL Off scale high 0.0-20.0 [facility] Comment on above: Result Comment: Crit ical Result : Called to and read back by: ADAMA GOMEZ at: 10/19/2024 17:41:39 by:[email or web address] PERFORMED BY: [place] [id number] PATHOLOGIST WOLF HUNTER AMELIA BROWN M.D. Performed By: #### C BC, BMP #### [address] Troponin I High Sensitivity 94.8 pg/mL Off scale high 0.0-20.0 [facility] Comment on above: Result Comment: Crit ical Result : Called to and read back by: ADAMA GOMEZ at: 10/19/2024 16:21:23 by:ALIYAH PERFORMED BY: [place] [address] PATHOLOGIST WOLF HUNTER AMELIA BROWN M.D. Performed By: #### C BC, BMP #### [address] CBC AND AUTO DIFFon 10-08-20 24 ABSOLUTE BASOPHIL 0.1 X10E9/L Normal 0.0-0.2 [facility] Comment on above: Performed By: #### C BCA, CMP, 3040-3, 14667-7, 16046-0, THYR, 22004-9 #### [facility] ([id number]) [address] [place] [address] 92897 ABSOLUTE NEUTROPHIL 5.6 X10E9/L Normal 1.5-6.6 [facility] Comment on above: Performed By: #### C BCA, CMP, 3040-3, 45440-6, 63550-6, THYR, 40060-5 #### [facility] ([id number]) [address] [place] [address] 36908 Basophils/100 WBC (Bld) 0.7 % Normal [facility] Comment on above: Performed By: #### C BCA, CMP, 3040-3, 51659-5, 17704-3, THYR, 45283-5 #### [facility] ([id number]) [address] [place] [address] 51670 Eosinophils (Bld) [#/Vol] 0.3 10*3/uL Normal 0.0-0.4 [facility] Comment on above: Performed By: #### C BCA, CMP, 3040-3, 96201-9, 31255-2, THYR, 36717-5 #### [facility] ([id number]) [address] [place] [address] 91519 Eosinophils/100 WBC (Bld) 3.7 % Normal [facility] Comment on above: Performed By: #### C BCA, CMP, 3040-3, 99974-0, 55150-9, THYR, 20340-4 #### [facility] ([id number]) [address] [place] [address] 30528 Erythrocyte distribution width (RBC) [Ratio] 13.6 % Normal 11.5-15.0 [facility] Comment on above: Performed By: #### C BCA, CMP, 3040-3, 52292-2, 39850-5, THYR, 35510-7 #### [facility] ([id number]) [address] [place] [address] 82983 Hematocrit (Bld) [Volume fraction] 43.6 % Normal 39-49 [facility] Comment on above: Performed By: #### C BCA, CMP, 3040-3, 54515-0, 14584-0, THYR, 82718-9 #### [facility] ([id number]) [address] [place] [address] 99606 Hemoglobin (Bld) [Mass/Vol] 15.0 g/dL Normal 13.0-17.0 [facility] Comment on above: Performed By: #### C BCA, CMP, 3040-3, 85220-9, 43539-0, THYR, 08153-2 #### [facility] ([id number]) [address] [place] [address] 96293 Lymphocytes (Bld) [#/Vol] 1.8 10*3/uL Normal 1.0-3.5 [facility] Comment on above: Performed By: #### C BCA, CMP, 3040-3, 55991-7, 88887-2, THYR, 97252-6 #### [facility] ([id number]) [address] [place] [address] 86482 Lymphocytes/100 WBC (Bld) 20.5 % Normal [facility] Comment on above: Performed By: #### C BCA, CMP, 3040-3, 90241-0, 61370-3, THYR, 53544-1 #### [facility] ([id number]) [address] [place] [address] 35064 MCH (RBC) [Entitic mass] 32.3 pg Normal 27-34 [facility] Comment on above: Performed By: #### C BCA, CMP, 3040-3, 94300-1, 48646-3, THYR, 13896-0 #### [facility] ([id number]) [address] [place] [address] 07663 MCHC (RBC) [Mass/Vol] 34.5 g/dL Normal 32-36 [facility] Comment on above: Performed By: #### C BCA, CMP, 3040-3, 23702-8, 35087-4, THYR, 32963-4 #### [facility] ([id number]) [address] [place] [address] 45625 MCV (RBC) [Entitic vol] 94 fL Normal 80-100 [facility] Comment on above: Performed By: #### C BCA, CMP, 3040-3, 62431-0, 67693-3, THYR, 96825-8 #### [facility] ([id number]) [address] [place] [address] 09453 Monocytes (Bld) [#/Vol] 0.8 10*3/uL Normal 0-0.9 [facility] Comment on above: Performed By: #### C BCA, CMP, 3040-3, 61874-3, 11614-8, THYR, 97946-9 #### [facility] ([id number]) [address] [place] [address] 80729 Monocytes/100 WBC (Bld) 9.3 % Normal [facility] Comment on above: Performed By: #### C BCA, CMP, 3040-3, 15492-4, 98731-1, THYR, 64094-8 #### [facility] ([id number]) [address] [place] [address] 31104 Neutrophils/100 WBC (Bld) 65.8 % Normal [facility] Comment on above: Performed By: #### C BCA, CMP, 3040-3, 68512-0, 24178-8, THYR, 74889-7 #### [facility] ([id number]) [address] [place] [address] 06985 Platelet mean volume (Bld) [Entitic vol] 8.1 fL Normal 7-12 [facility] Comment on above: Performed By: #### C BCA, CMP, 3040-3, 39746-2, 37436-6, THYR, 58080-1 #### [facility] ([id number]) [address] [place] [address] 19351 Platelets (Bld) [#/Vol] 260 10*3/uL Normal 150-450 [facility] Comment on above: Performed By: #### C BCA, CMP, 3040-3, 02923-7, 12081-2, THYR, 70209-9 #### [facility] ([id number]) [address] [place] [address] 64339 RBC COUNT 4.65 X10E12/L Normal 4.10-5.70 [facility] Comment on above: Performed By: #### C BCA, CMP, 3040-3, 33080-2, 87790-2, THYR, 65384-7 #### [facility] ([id number]) [address] [place] [address] 22174 WBC (Bld) [#/Vol] 8.5 10*3/uL Normal 4.0-11.0 [facility] Comment on above: Performed By: #### C BCA, CMP, 3040-3, 02837-0, 93531-5, THYR, 45161-5 #### [facility] ([id number]) [address] [place] [address] 23567 COMPREHENSIVE METABOLIC PANE Van 10-08-2024 Albumin [Mass/Vol] 4.7 g/dL Normal 3.2-5.3 [facility] Comment on above: Performed By: #### C BCA, CMP, 3040-3, 67305-0, 43697-4, THYR, 44192-4 #### [facility] ([id number]) [address] [place] [address] 68581 ALP [Catalytic activity/Vol] 44 U/L Normal 39-130 [facility] Comment on above: Performed By: #### C BCA, CMP, 3040-3, 93483-8, 86735-1, THYR, 51315-0 #### [facility] ([id number]) [address] [place] [address] 46628 ALT [Catalytic activity/Vol] 35 U/L Normal 0-40 [facility] Comment on above: Performed By: #### C BCA, CMP, 3040-3, 64347-8, 36444-5, THYR, 48633-9 #### [facility] ([id number]) [address] [place] [address] 02936 Anion gap [Moles/Vol] 10 mmol/L Normal 5-15 [facility] Comment on above: Performed By: #### C BCA, CMP, 3040-3, 38160-1, 46592-1, THYR, 95118-0 #### [facility] ([id number]) [address] [place] [address] 27532 AST [Catalytic activity/Vol] 36 U/L Normal 0-41 [facility] Comment on above: Performed By: #### C BCA, CMP, 3040-3, 06270-8, 53706-6, THYR, 78295-0 #### [facility] ([id number]) [address] [place] [address] 32151 Bilirubin [Mass/Vol] 1.3 mg/dL High 0.3-1.2 [facility] Comment on above: Result Comment: RESU LTS QUESTIONABLE DUE TO HEMOLYSIS Performed By: #### C BCA, CMP, 3040-3, 47776-6, 12943-4, THYR, 90446-2 #### [facility] ([id number]) [address] [place] [address] 94566 Calcium [Mass/Vol] 9.3 mg/dL Normal 8.5-10.5 [facility] Comment on above: Performed By: #### C BCA, CMP, 3040-3, 04219-2, 86482-0, THYR, 19066-0 #### [facility] ([id number]) [address] [place] [address] 74395 Chloride [Moles/Vol] 102 mmol/L Normal 98-109 [facility] Comment on above: Performed By: #### C BCA, CMP, 3040-3, 56911-0, 16701-6, THYR, 31280-0 #### [facility] ([id number]) [address] [place] [address] 82620 CO2 [Moles/Vol] 22 mmol/L Normal 22-32 [facility] Comment on above: Performed By: #### C BCA, CMP, 3040-3, 79534-7, 00440-1, THYR, 14776-5 #### [facility] ([id number]) [address] [place] [address] 81227 Creatinine [Mass/Vol] 1.10 mg/dL Normal 0.70-1.20 [facility] Comment on above: Result Comment: METH OD TRACEABLE TO IDMS STANDARD Performed By: #### C BCA, CMP, 3040-3, 54757-4, 33418-2, THYR, 98755-9 #### [facility] ([id number]) [address] [place] [address] 30815 GFR/1.73 sq M.predicted among non-blacks MDRD (S/P/Bld) [Vol rate/Area] 73 mL/min/{1.73_m2} Normal >59 [facility] Comment on above: Result Comment: Reported eGFR is based on the CKD-EPI 2020 equation that does not use a race coefficient. Performed By: #### C BCA, CMP, 3040-3, 55141-0, 47438-7, THYR, 38757-0 #### [facility] ([id number]) [address] [place] [address] 67078 Glucose [Mass/Vol] 121 mg/dL High 65-99 [facility] Comment on above: Performed By: #### C BCA, CMP, 3040-3, 13272-0, 04651-6, THYR, 10349-8 #### [facility] ([id number]) [address] [place] [address] 70776 Potassium [Moles/Vol] 5.0 mmol/L Normal 3.5-5.0 [facility] Comment on above: Result Comment: SPEC IMEN HEMOLYZED, RESULTS INCREASED Performed By: #### C BCA, CMP, 3040-3, 20132-7, 34236-8, THYR, 51835-5 #### [facility] ([id number]) [address] [place] [address] 65575 Protein [Mass/Vol] 7.9 g/dL Normal 6.0-8.0 [facility] Comment on above: Performed By: #### C BCA, CMP, 3040-3, 08471-0, 63393-8, THYR, 15047-0 #### [facility] ([id number]) [address] [place] [address] 75912 Sodium [Moles/Vol] 134 mmol/L Normal 134-146 [facility] Comment on above: Performed By: #### C BCA, CMP, 3040-3, 13074-3, 87436-4, THYR, 34858-6 #### [facility] ([id number]) [address] [place] [address] 38510 Urea nitrogen [Mass/Vol] 24 mg/dL Normal 5-27 [facility] Comment on above: Performed By: #### C BCA, CMP, 3040-3, 79327-1, 14834-6, THYR, 77324-0 #### [facility] ([id number]) [address] [place] [address] 18041 LIPASEon 10-08-2024 Lipase [Catalytic activity/Vol] 42 U/L High 17-40 [facility] Comment on above: Performed By: #### C BCA, CMP, 3040-3, 22472-6, 13306-0, THYR, 16311-7 #### [facility] ([id number]) [address] [place] [address] 28833 MAGNESIUMon 10-08-2024 Magnesium [Mass/Vol] 2.0 mg/dL Normal 1.8-2.6 [facility] Comment on above: Performed By: #### C BCA, CMP, 3040-3, 36835-2, 27749-6, THYR, 54726-9 #### [facility] ([id number]) [address] [place] [address] 16345 Natriuretic peptide B [Mass/ Vol]on 10-08-2024 Natriuretic peptide B (Bld) [Mass/Vol] 66 pg/mL Normal <100.0 [facility] Comment on above: Performed By: #### C BCA, CMP, 3040-3, 68813-7, 80941-1, THYR, 62601-4 #### [facility] ([id number]) [address] [place] [address] 43048 THYROID PROFILEon 10-08-2024 Free T4 [Mass/Vol] 1.00 ng/dL Normal 0.61-1.60 [facility] Comment on above: Result Comment: NEW REFERENCE RANGE FOR PEDIATRIC PATIENTS Performed By: #### C BCA, CMP, 3040-3, 58266-9, 24122-8, THYR, 16395-2 #### [facility] ([id number]) [address] [place] [id number] TSH 1.88 uIU/mL Normal 0.49-4.67 [facility] Comment on above: Result Comment: NEW REFERENCE RANGE FOR PEDIATRIC PATIENTS Performed By: #### C BCA, CMP, 3040-3, 59483-1, 12075-5, THYR, 73426-7 #### [facility] ([id number]) [address] [place] [id number] Troponin I.cardiac High sens itivity method [Mass/Vol]on 10-08-2024 1 HOUR TROP I, HIGH SENSITIVITY 4 ng/L Normal <21 [facility] Comment on above: Performed By: #### 8 9579-7 #### [facility] ([id number]) [address] [place] [address] [id number] TROPONIN I, HIGH SENSITIVITY 5 ng/L Normal <21 [facility] Comment on above: Performed By: #### C BCA, CMP, 3040-3, 74926-5, 21198-1, THYR, 54869-9 #### [facility] ([id number]) [address] [place] [id number] Coding Summaryon 07-05-2023 Coding Summary [facility] RiumyyaoJAg2tNg+PGhlYWQ+ TR9CFCYoE09wqYIhyZ3bN4II TElOSywgQVBQTElOSyIgbmFt JX2eoPOaZTPh IC8+WX9iCLZiOdopjGYpa3C7 wXC5A12dij5aJOyxkLS7OSSs CxDwgddpf7iiiHj2SZzkJttl OyBt NYCpiV88GBZ5iF69Vx83lEDw hBRsq1xpzQw8GxGgTJWwEKP4 sHxjOPijh3HmHDUdT38kcHPj c2U6 VSCslMqpoWVwQgYzmTR6nI9j RQvkpxufp6ypbanuIjy0wn64 vWLkl9F0mNI6S7QmjsE0RHRb bGQg XoehpTDJgX4jggknv0kaaied LwRhYXLoEGe8EXw5CUMndNln BiQrPE31RIJ4KYPzfaLnK2Fd LWFs oOxwScO3x8Q5Rn0FZ0DCMeoo X1UWQFTNPFeqdRD+KO99az06 O7KoPtyfOgm6YNFvAGP2uTA6 aD0n VQUjOUmfz8F4bAM7P0WthbGh er0iw6tvUBObKPkyY90chZAz n1G5DNHubJF3TTIzbUolXaUh aG93 Oyc+NYEhsFbbr6OgOqurj8wn e1xtpUy8VddrPAWchnEicPzo XIG9e9YuBq7nHVEevJB2yGW7 aD0i XcHgXpA2QHqzM200EuXcbYCm QlejF05oE9YeoUQ+PHRyPjx0 NFDctRcxZO1mW1NeHWOawblr bGVm wWgpBQ9oNZZexvlhWMSzpJ6g ICGrN8e0BsAmSoN3GFlzZ2Fm EDWifhjdSw34xO0zOqCyTfD3 MGlu S5QnboR7BKNfdTKhYRgpKDW7 R95wb9E7IXMgMYZfFDB6sMA3 nC0tzYlfkdscvZRdmGovnmBl dGlj CQacCJaoN588CLCcuJihEvMy ZGluZyBEYXRlOiAgMDgvMzAv MjAyMzwvdGQ+QJVdCRI8oMof PSAn xBLpLSslDw0bzRldeZmtDZ2u YKHbbfkdVGHqxB5rPXZbeWNs jPktXR8lAKMnbufcf724WqFx MHB0 RJSchJTtE8OalX8pKcWgXBMj ZDTbG7ZckEGeIBnbV875HTdj GnO7NXRvpcAnR7CaHHHdbZpa OiB0 d4O8Qy1Dj6SbdubrB8YswUFz AhJpNzhtIPf8O9DyMpvieTV+ HB57RCRcZJ84MHw1TDF8lVdj PSdi FICzI0YusI1fCnWdOOQzSJAn Oyc+PHRhYmxlIHdpZHRoPScx AADuAgZncKhrBH4rCd1pEZZd LWNv qFzzbXZtBpNvg2giMJWuVJcc QR1syKgnU8UamNJ1KUWwv2m1 Cz28N95sS6TuoSO+PGNvbCB3 aWR0 tX2oLbVdOjA5XHnjM249NlIp zVDpPzryx8ewv0lsoPx2KxF9 WJOotdSwrYjyBUZ0u5TuAo94 Y29s IHdpZHRoPSIxNSUiIHZhbGln jc6mvS3oVx9+NREemZI2jXK8 gV2aEsOvPwO0JDfyH670NbMf cCIv Sxfng0yjl2krsAq8IyCdOCLe hcPmeRkkROR8x1AgFz69Z0Ay jPvfs0CbSna6jg70oRTlo7E5 bGU9 C9ImGFPjdisceHOxaEnzBZ3i BXSxhobpFLDlnI5wVVKqG9x2 VwDoBeK2INonJ8PaadC5NTNv bGQg GPFwwYWAjT0anjzwz4vdosuc QvQdQXNyVLx5PPj7FIDndMeq HrIjWZP6XsO9MQZ4wYDrfK1x bGln quttjM4lFqy+AXO4gUKjaJYJ VP3cYakvhBJ+TBSbUCC9mNnt HHtlJQIdmC6tHPNzE6o9HlIm LjA1 QGupC8JxykS2HGOgzDKtAUQa tKLLsR6dvzinr4qvfwjgEfGp UNOyAEs6WWv1ONTncPpwUvNs ZWZ0 GvE7UYS7zUSltE4naEcfgfqi bR5kNai+NcvfuSnvJBN5KVo8 Y8EsOrm2JVBriAbtFA6itLWf ZGlu Cm4rjGiukTwoSF1vFSUpgnpr w434EzMnn8jgFDLarMSoCHyz RBA3U06qj7R7IUSnRSUpDDJ6 dGV4 jF5tePhsmufkyABmoSiesuId fFjhRMczOFocY286UVSxiUex RwOlXBh0P1JtCka0YNKdeGzu ZT0n jFRbKHqlDx0xhFfpkPvdPW5z HZRxpmmek006PdVdo2hvHWFi dMYyGDzmGSU1O59vs5W3UHGf MDAw EUQ2wWV4gY7blSkjcdtgqBNc jYrogcVrbIulHKzfIRdpX231 DXXoqVihOqJeqUd7R3FlUfy3 ZCBz qXbfTI3wnCIuEUbgGx7urEfl yGbkWC1uDEXbvzqsw881LwDw f3szTYWzhXYyPKxqECD6C02g b3I6 OZYfVCNhNJE2mTM0wQ6kwXzr bjogbGVmdDsgdmVydGljYWwt ZXqpB972JWSshMoiMnEogDii bnQg WPevLEk8G9WcQpidmTC+PC90 RWHbWH40dXBbvXUng3vwfXx9 XbEmXHIlOHI6gDwrNGcgq6Jq ZXIt Y39ygUNrl1U4CHUicEmkqPEb TpKqxFK8pF3sGJtkuhmcx8ot maayQwakz1acig86cU79X53y IHdp OCWzDNXwCPXtEHGiiMqzho7h bP6lAg7+ZHGiyVZ7aYG5aA4g BTFmKiC9FIthC660OaKxaKFz Pjxj x0grt7mecQz6XgE4IRYbvoFb iJipIJO8y3ClLh42W02rZNzi OACsVAGiOZQuPPNxtBdlau4h dG9w Ii8+EBHeeTI1xXZ2uX5hToOa YcA3ZNslI437HqCgmRLsNmgj Q97xI3CrpXB+IXTdRbg1AAMb dHls AV0xyNCwKUzsPy3qKGJ3CuPm OzQuGVsfT3LnNIMgfcymwwkf nRS3CWKnXNHqcR84Gi8khYyw MTBw eBDUpL5suggow4avnpwyPeYe JKXoNOt2HKp3CBVsjIcfXrJo MXB9HyT2AJP0eWKjyJ3adVay bjog wW4fP6JwCVZxrvzuEh53kL4g YaKvGeQ1OLanGhf+IrWJF2VC DWRSI1PIIpGoSwwlwUL+PHRk IHN0 iNbxVMcyIUWtkR8lCOUyG2g2 TxNpMcA1SDrfC9VxXZRwjgom Qp06qS2nMvThDxF3YPuwL2Vw bnQ6 AIVitMXeOWjgWXD6J65me8U8 CXPxSHVxMMX7zOK4bL9tvMib bjogbGVmdDsgdmVydGljYWwt YWxp K424IKAodWqsGdKzJkJ8NzW1 QYN5Y8WpHad8SWXryWigLE0k cOWgBQkjMz8ygNpwkAyhHW7v NTBp srapNWEzkB8eYUWfmZFilUxb KT3uKCAkaoexm184WoWySZH1 WWJtzTTtZ5DksE7qTqPoIEJa MDAw A0TvuGUlEOwlO292KLfgLqT4 XROgchZjB4TpNFUezMwlIpL1 w7Y9Lj33GYPMHLFlzgtisEW+ PHRk TDT4oAlcOFfwOBBzvP3yKOUr N3i4ElBcAtH1WGddS6GyITDr tkqbFq09fE0zWvHkVjH4XFby O2Zv bwL4VWRllQZnRIdxXYC0Q40a y5C9SXHdNJZgFLP0uSJ2lZ1q bGlnbjogbGVmdDsgdmVydGlj YWwt RBqgF613ZQUwxRmfUm6HDBD4 H9TwRcc6ZIKfnUfuFI6blEXw FKayBi0kyPbolKeoXE5rWUOh bjtw PQGlwZ1iMONqhALvaAclMN3i IKPhhmqyi332YrWeVHW7ATZm xIPiV3LceB6pLhVmHMTqBNEa O3Rl vWGkUUehE074AVfuGmG0ALQz geXhH4UjIMAtaWnxGbZ9v3G5 Km1TVCllxLG+NN51qb67Z1Do Ymxl Hnf0YDQmEAJ0vRV5rQ4xYLNe RRwcy3T7tLI3K6TtnaEgzt9s a7iaTZMgLLobJ44arZKqy1Z5 IGVt sCA6JZOlbBpkNhPlfS02Kbp+ TURhsUaef5YgQkkfk4dfa4ob hYk0DsXuMLMmrnPrvCgkTBK4 b3Ai Bn14X80oAXxpPKUcEPFcQEHg WYMkuNsnon5tpG0gCo0+PGNv vIP7gTZ9bR0uHwYgDdO8TQba Z249 UnQkmMPvYxzvs2wng8ouvYj7 FqCjUXLmklGzcLtmJJD3w7Ak Ie42I0DlwHugd8MiByp5rg81 dGQg v1Z3qUD0H2IdTHVbyooeyPJo wTycZR6nYDQgjloeWBPjxT5u GPUgR9r4QuOnVzH1JHiqN7Di bnQ6 EBXjoHHcODOrkMQLpC7ylqfy v9lbkmikYtXhODYwXHa8OUb7 YNHthIgfNpJuYTP7QdW1SIY6 aWNh hD0mwWzijeiltI6oChf+UGh5 s0lxrSKrYW5ruGX6DJ00MD35 yUTfm1A0sUP2T1XsGYXhyasj cmln kBQ4LEDuYXCmhK56Qf1haDtc Ae5qPPNjWMA7JXYchZMmY2Ha mN5bXrMfUMTxSUXoY9VhoHRr YWxp L186PWthYpS5RDGcxfSvK0Ki LTIitHywIhG8l4J4Al4BIL76 OK32VN55yWBnc5H2jWQ5P0Co ZGRp lpqdimhzeBV0THHuQVVjhU72 Jo6hmYdzFp1sFMGkWTH7DRMb mMPnZ9MegT6mEvQcSKYvHOZu O3Rl uKSwTTgaV391NRfsTmP7WMZr cdQbU0VnUCKqzPamKdD6x7B5 Ss1DCx35HV06ZF00pLDhy3V3 bGU9 P2EtNHXgzqepxtujkJN4JLJn RFRrhO18La7zaFmoXw7eIFHy CER2HDLivKJkT2WujE9yDxPo MDAw JKBmR7XuaAGoCHizA473XAas UrQ9LSZeufZvC5KbJTZrnGdp EkL3v5Q4Uj0OPLnkgrz4M0Bu Pjwv dHI+BW24ULCcNE56aYBmtCBw h3kggUq6CeKkNWSaKRD1vPrq UNlzr5YoJVJaA05ofHPnr5I5 IGNv bGx (more content not included)... Normal [facility] Rad - MRI Reporton Rad - MRI Report [id number] TIFF Normal [facility] MRI LE Non Joint w/o Contras t [...] Foley DO 07/04/23 2:17 pm Technologist: SIDNEY [facility] Provider Orderson 06-22-2023 Provider Orders [id number] TIFF [facility] Coding Summaryon 06-11-2023 Coding Summary HTMLBase 64 SwefbdpySNe2qDk+PGhlYWQ+ KI6NJAIkL50bnIJtvW3gU5MB TElOSywgQVBQTElOSyIgbmFt UK0faQDsGIIo IC8+EM4mWNRfAcsyfBGew7E8 zRF8D13erd1sJBnetME1PBDx ZdAxahlsj1chyOj9DUufLdhz OyBt IJTdgC31HTT6aE34Lk99nYNj nOIiu7urlSb6JdUtPPDwZAG1 aWytFUnfb4NdSYSwM43waAIy c2U6 WLIuvRbxrLXkMcZapUG3xS3f ZUbpprbqr6ihxhrhVot5uy44 sLJhn0Z2bSU1K1RmjqX6GUXo bGQg TpylmPGCeV8bvaalz6wemqqv EjTnYKVaNMx1CUm7WJIwkHxs DfFqOI19MLA5SNVhsaDkC8Eh LWFs hYvmTjE1e5S2Bj4LJ3IMYaok G4MRYNNDKXfvgJY+RS42vs19 V3UdAjysQtc3DTLjHXT9lHA4 aD0n EOMaGKjxb5D3iQV7N9LuvtCb kj0yr5qsXRYtZGfuK80kuHGm q7Y0WVYyoVA3VVHbsGcdFcGs aG93 Oyc+NGUwrJcne1WdQxzrm0lj y4ycsXr8JxgvGEEjerJovWbi TMB1l6MaXv9tNAJemML7aMY6 aD0i FzOaLrK7EVzmT175RsMntBMa RbejF94cO2RzzIZ+PHRyPjx0 CXKbyPwcOO3kK2RgWUHcvllq bGVm lHtqYW9sNVDfocarNZEfwS8r FXFoN2g4TzGnQuL8JSumS7Jx WBSawnfiRe68dV8vWbDjBgB1 MGlu K9CxqkH3RMFnnBYnNOtyZKM8 L63ii3A6WONvEVJtUSJ8eFI3 kG9fmSsctpbdvPSuoCzbnkCq dGlj LVunWCfeC738BMRflHyiAeYc ZGluZyBEYXRlOiAgMDgvMDYv MjAyMzwvdGQ+RTSoING9pJhp PSAn gUEdUJtqBj5lsBxakZviMY1f CRUsdbwhKSLozV1iXPIocUQb nBtrUU5wAFTczcoga800QiBg MHB0 TUMcoWRvC8JopZ6mZbYmLFRl INTqX5FipHKtFTdeM186YXmd QiC5IQIyuxVjB2NzHHYqpDgo OiB0 f5S6Tm8Zy8LpvkxtX5AayRAm RsTmOziqVIo1J7ZqSquanRE+ VQ76ZIVhTI19JMk7AOT5xEfe PSdi OJRxR3VocC0fUeOiOTNbBCBn Oyc+PHRhYmxlIHdpZHRoPScx VPJwOmHmyUmnCR4zVn0wCLLy LWNv cEieiKNhWbDmm5mfASTvOQuj CT8hnUcfE6VajSA1PHBlu9i9 Ip10F54oD0MrcOW+PGNvbCB3 aWR0 iL8bZvPrBxW5KOzlT786YaJq cJMkPubff0xoq1medPd6McB5 ZASjziJkzHvqZKG1d5LxZz44 Y29s IHdpZHRoPSIxNSUiIHZhbGln of4wlQ2cPq3+VQUshFK8yQH1 zT7jZpNlNjF8TPuxQ840MyVd cCIv Rlway3qmy9qobYb5UcGfIEAh lzJvaThnDZB7s4UdGw29X1Di rZopx6BmIdd0oi25mKAoa5Q4 bGU9 J5HsYAGzxvxxrNOhrLmcPS5o OMAdeihpLIWqwO6iJGUlN0n0 IhApEcQ0OYlmR9VxwhX0OEOw bGQg RHStlFWRyW7typkbp6vxzroa OiYeTDReTYk3ICf5ETRleZld ZlPqCUR9YcM4PQC5nNOwaO5z bGln omqkyG8kWqf+OZS9fJZbpKWH ZQ7wXkdmwLP+NGRyGQX7rPbn CUawGYOtpS2qVREhA4p1FiXv LjA1 KInqJ1ImorG0KEYxbJHlAZDt vQABfA9aevqka2rhlbbzEpEs IYUuHXf6KAi0FMKxhWwgLxEh ZWZ0 JoI0LPU3nQLzeO1feRtxlfat jS0sWpc+NuizpFgpXMZ9ZXq7 E3EqHdq1VPExtWaoTY3pfLXd ZGlu Gz4ajMkuvWqrPO5rLCFvmwdi s588FmIvx4qwNQKutKQtFNvr QLM4B04pq0D6OMQvFWQmYXV5 dGV4 tP1pdNszxcvubXDliDgwogXv qRbmHQdiOPmyJ442AFPxePlo OwKkQEa2Y8LsExy9WBPceErp ZT0n bTBuZCmsMv4abBxqtLcgXP9b LHMicahse166CoYad9wcEESu rMNnILsuNTJ2B61ca1S0XBYh MDAw AGU0hWN9pU4fkFmuevlnoBHj gUwarzRvtYklFUgoNGfhT763 RQJneStfBoNasSn8P0VpFpp6 ZCBz vMueCC0tmVWyDBlbFv1zbGfb rUbqNO9dGHKsyihmm152TmSb a9hbJUKldUWyESgjYIC0W39r b3I6 PSWjZDPyUIE8gUG9aT2ueWcc bjogbGVmdDsgdmVydGljYWwt CEpuZ629GVXnhIgmMvFuvCem bnQg TComDHb3L9LmTqfrfJW+PC90 QFUlOL56vFZkmCRlv9fgfQc4 FzKxAODcFBT3cRfvLFmtm8Rb ZXIt T91kgDDir0S3KBYcqFdphHJu LxKmzZI8nM0lOZaqlwzfb6wx spgvEhcwl9jnnv92qQ56C67y IHdp UBYgGHHzCTYeHEKicAdmeb6r hJ8gRc0+LIHvxKH9wQH1cI0f ONWxRbC0XKgzQ380LjAfhMWk Pjxj m3ljb8kxvZi3XyD5LYErivQq vQfgOBW5u4EmOg39M32bVDzp NIPyPKAkYSRvSBBzoKxejl8g dG9w Ii8+RJDcfHI0nMQ8yF4bSiOm KeK5XJsyP552WbFirNOiKijn E57oO4OyjNW+LPLdGys5XATl dHls KA9oxTEwEAfsIl9uSOZ6ZvCv MdLdNAdfF4IuILQbzwvkebeq xET3LVBoMDTypQ77Qv2udVpu MTBw rORFqK1tbmdod9lbepqdNjFx QJMtVGy0JNs3LQUopVpzQyHl FOA3OqL2BHS5ySRrcM4hgUyk bjog lR5vC1QjMKGjmxjbAf72sE4i PdYhTaP8QDotSag+KcPKZ6VY BEDFA8BPHhNmQolraQT+PHRk IHN0 kSmlOIbuPJQrbT2gPTTqD3h3 BrHdSmP6PEbvC7XkQZXjmrld To12pY9hUoZvLdS5PKfaK4Lt bnQ6 OJHmnANpWAljZBU3P12ub8G3 QFSgFJVsAES4wEN4yJ7uyMhc bjogbGVmdDsgdmVydGljYWwt YWxp U752HSDepMmuPaZaWbB2VoY3 MSC1E1MfTzl6TIRqiOrmNA5o nYWuPWjnUh5gyQucoQmzID9o NTBp rmesFSTxmS3zMFRrqYJhdRcf ZH9aHLXssaure744NpMwUHN5 QSTsnTRpB4MvdX5yJaUgEPJg MDAw I6XshMBsFLxlM221TZovVnP7 ZQEftaWqC7DmQTZpaVlxFzW6 r7O8Ia57AWUSUNZemxsvcRV+ PHRk JQS0eOcoAYxmQBHvbT4eBMJv I7g0CmAdLxY1SVxuN3UbUCOy agadFy17fX9qLgBlViQ8YZyn O2Zv ljH1UUZtiKVaMQtsZEL7E76s r3X8QNDnZGVgMQC4kVV8rC5g bGlnbjogbGVmdDsgdmVydGlj YWwt XGdaS491GIYwcLfbJn2JPBA5 L8BySkp1FDQmzFtcKC6srHCn JFfdNl9dtGhpzGhbBG7yACLt bjtw UJYqzK7kDQYiiRXeyTonSC4c JJUipspdw957LsRdISU0YKFu oHInA7ZpnY8zGyJgZRKcTQSi O3Rl xTEqMXneJ765CIqcYpV1NHAk efOiI9QcJEKhbLctPqV4z4X8 Rm4ErDArM4JkU8v8J2GbFicl dHI+ CL76VTPpPA69nBRzvJYfb8al mAv4AgHaRLVvLSM9uLezDMrr m6WlSCSbT73vmLTqh1K5PPRw bGxh kOMeZyVfgNR1fM2kLYsvwswj l8yxkhgpKgmla0zdge12eH65 J02nXKliDJMcQLBwIZOhLSTn bGln ua9iqS2wVh2+THBvkUY0cBU1 yZ9wLaWsQgX5PZxvH520TfAz qSGuAfzok3jop1tzqAl9DpOi JSIg nnDxaIepBDA3o1BoIx33E66u IHdpZHRoPSIyMCUiIHZhbGln zn9kmS2yGo5+SH7mf4ezyo38 cD48 dHI+ELZjCTS3mChjTUirCVKq xV6nVGwsBvE0GDUhWpEtnL97 pGJsJTuyUm5wcHsszSljIK1f NTBp oykuy089ToPry4kiWBDyhRWv MDrjQCL2U46oi2Z8EZSvBNSa OTB8wQQ0qR6aqJrsypfavNEa dDsg kxNcdQxdQJjwAWkfD482FHFx pDxaRhEnkZMfI7qjaoTOHM6q OjwvdGQ+XKVtPVR7iYheDLsf YWRk oP4mAGWaX8a3KqLpIzJ2FAcv B4SvtuB7HTYraYSzODGdkWEY iZ0imsuil0twzclaZcLvXTEt MDt0 DOl8FOBktPlvHmHvADG6LuT6 USY1eTQpeL5tsOjwatscrR9q Oyc+RklOOjwvdGQ+PHRkIHN0 eWxl RHsuKJHifH0nDNLiJ1f3SiYz CgD4MZzmC6UssrV8CFNfeYUd IDNknWKTzW7vtvreq4mupckv IzAw KFUrDGt3CVw1IWZebCriRmDk KYW4FiM6NFE0nKXrkI0juSoh tpiiuJ6fYno+TVJOOjwvdGQ+ PHRk PXW8bGxdPNwsGCDroA1iUYZx U6m0IqTgRqY6UBdaK3MfuuU9 NBDbsINjAWAicBLAfM6mzzde b2xv whdaFgQeHVGvDSh5YMu0ARDl uPgbXgGyTAH0SuR5SLF5eERd yJ4caYthgnwotE4rWcq+UGF5 ZXI6 GS14KD31R1FgBtqkoTJgnJO+ PHRhYmxlIHdpZHRoPScxMDAl KmBdnIvxQR9iSh7iTTBqRSGk bGxh cHN (more content not included)... Normal [facility] ED Clinical Summaryon 2022 ED Clinical Summary [facility] - Emergency Department [address] [place] [address] ED Clinical Summary PERSON INFORMATION Name: HORACIO SOTO Age: 68 Years Sex: MALE : 1955 MRN: Acct#: Visit Reason: Foot pain-swelling; LFT FOOT PAIN/SWELLING Arrival: 06/04/2023 08:54:47 Discharge: 06/04/2023 10:08:00 LOS: 000 01:14 Check In: 06/04/2023 08:54:47 Checkout:06/04/2023 10:08:00 Address: [address] [place] [id number] PCP: Provider, Unlisted PROVIDER INFORMATION Provider Role Assigned Unassigned Prabhakar Meza DO ED Provider 06/04/2023 09:01:06 eSn RN, Juana ED Nurse 06/04/2023 09:17:32 VITALS [...] Lisfranc Injury; Heart-Healthy Eating Plan; Hypertension, Adult, [id number]-Hfms Follow-Up: With: Address: When: Follow up with primary care provider Within 1 week Comments: follow up with your primary doctor regarding your blood pressure With: Address: When: Barron Alanis [address] [phone] Within 1 to 2 days Comments: Use [...] Patient/family/caregiver verbalizes understanding of instructions given Comment: [facility] ED Note-Nursingon 06-04-2023 ED Note-Nursing AAOx3. JEFFERS. [...] at cart side, interacts well with pt. [facility] ED Patient Summaryon 023 ED Patient Summary [facility] - Emergency Department [address] [place] [address] PATIENT DISCHARGE INSTRUCTIONS Patient Information Name: HORACIO SOTO Age: 68 Years Date of : 1955 [facility]: [id number] Reason For Visit: Foot pain-swelling; LFT FOOT PAIN/SWELLING Arrival Time: 06/04/2023 08:54:47 Primary Care Physician: Provider, Unlisted Attending Physician: Prabhakar Meza DO Comment: Visit Diagnosis: Diagnoses This Visit Foot pain-swelling ([id number]) HTN - Hypertension (I10) Injury of left foot (S99.922A) Pain of left foot (M79.672) The Pharmacy at [facility] is open Monday through Monday from 9A [...] alcohol and/or drug addiction problems; contact the [facility] 29/05 Crisis Hotline -Text [id number] ks [phone]. If you received any narcotics, sedation, or [...] blood pressure With: Address: When: Barron Alanis [address] [phone] Within 1 to 2 days Comments: Use [...] and treatment you received today in the [facility] Emergency Department were for an urgent problem and are not intended as complete care. It is important for you to follow up with a doctor, nurse practitioner, or physician?s orthotic assistant for ongoing care. If your symptoms [...] so we can reach you if necessary. [facility] Emergency Department has provided you with a complete list of medications post discharge. Please inform your communications agent/provider of your visit and for further instruction [...] Pressure: 189 mmHg (more content not included)... [facility] XR Foot Complete Lefton 05-08 XR Foot Complete Left Findings: Narrowing left first metatarsophalangeal joint with mild flattening left first metatarsal head spurring along lateral margin. No fracture. No bone lesion. Mild spurring posterior calcaneus. Impression: No fracture. Degenerative changes discussed. Final Signed (Electronic Signature): Cameron Perkins MD 06/04/23 10:17 a Technologist: Wesley VALENTINE [facility] Vital Signs Date Time Vital Sign Value Performing Clinician Bhumi price 11-27-2024 09:11-0500 Body height 180.3 cm Jorden Smallwood DO Work Phone: [facility] 11-27-2024 09:11-0500 Body mass index (BMI) [Ratio] 32.22 kg/m2 Jorden Smallwood DO Work Phone: [facility] 11-27-2024 09:11-0500 Body weight 104.78 kg Jorden Smallwood DO Work Phone: [facility] 11-27-2024 09:11-0500 Diastolic blood pressure 72 mm[Hg] Jorden Smallwood DO Work Phone: [facility] 11-27-2024 09:11-0500 Heart rate 72 /min Jorden Smallwood DO Work Phone: [facility] 11-27-2024 09:11-0500 Systolic blood pressure 140 mm[Hg] Jorden Smallwood DO Work Phone: [facility] Encounters Encounter Date Encounter Type Care Provider Facility Start: 11-27-2024 End: 11-27-2024 Transitional care manage srvc 14 day discharge Jorden Smallwood DO Work Phone: [facility] Comment on above: Coronary artery dise ase involving ramona coronary artery of ramona heart without angina pectoris; S/P PTCA (percutaneous transluminal coronary angioplasty); ST elevation myocardial infarction (STEMI), unspecified artery (Multi); Mixed hyperlipidemia; Essential hypertension; Acute gout, unspecified cause, unspecified site; BMI 32.0-32.9,adult; Former smoker Start: 11-27-2024 End: 11-27-2024 ambulatory [facility] Start: 10-24-2024 End: 10-24-2024 Telephone encounter Minnie Walker [facility] Comment on above: Preventative Screeni ng Start: 10-19-2024 End: 10-22-2024 Evaluation and management of inpatient W Juan Smallwood Facility:[facility] Start: 10-17-2024 End: 10-17-2024 Refill Sena Rudd APRN-CROP SPECIALIST Work Phone: [facility] Comment on above: Gout, unspecified ca use, unspecified chronicity, unspecified site Start: 10-08-2024 End: 10-08-2024 Emergency department patient visit [facility] Start: 07-24-2024 End: 07-24-2024 ambulatory [facility] Start: 07-24-2024 Encounter for genera l adult medical examination without abnormal findings [facility] Start: 02-09-2024 Refill Leandra Martin [facility] Comment on above: Gout, [...] 07-03-2023 End: 07-04-2023 ambulatory Sandra Foster MD Facility:[facility] Start: 06-21-2023 Telephone encounter Alonso joseph DPM Work Phone: [facility] Comment on above: Insurance Authorizat ion (C - MRI LT FT) Start: 06-04-2023 End: 06-04-2023 Emergency department patient visit Sandra Foster MD Facility:[facility] Procedures Date Procedure Procedure Detail Performing Clinician Start: 07-24-2024 Adult depression screening assessment Sena Rudd [employer]-CROP SPECIALIST Work Phone: Start: 03-18-2023 Lipid 1996 panel - S wes or Plasma Alonso Strong DPM Work Phone: Start: 01-26-2023 Adult depression screening assessment Leandra Martin CMA Plan of Treatment Date Care Activity Detail Author Start: 03-18-2028 Lipid 1996 panel - Serum or Plasma Lipid Screening [facility] Start: 03-18-2028 LIPID SCREEN LIPID SCREEN [facility] Start: 10-08-2025 Adult BMI Screening Adult BMI Screening [facility] Start: 10-08-2025 Tobacco Screening Tobacco Screening [facility] Start: 07-24-2025 Depression Screening Depression Screening [facility] Start: 07-24-2025 Fall Risk Screening Fall Risk Screening [facility] Start: 07-24-2025 Medicare Annual Wellness Visit Medicare Annual Wellness Visit [facility] Start: 04-08-2025 End: 04-08-2025 Patient encounter procedure 04/08/2025 11:20 AM EDT Office Visit [place] [id number] [address] Jorden Smallwood DO [address] [place] [address] [facility] Start: 01-21-2025 End: 01-21-2025 Patient encounter procedure 01/21/2025 11:10 AM EDT Office Visit [facility] [address] [place] [address] Jorden Smallwood, DO [address] [address] [place] [address] [facility] Start: 11-01-2024 End: 11-01-2024 Patient encounter procedure 11/01/2024 8:40 AM EST Office Visit [facility] [address] [place] [address] Sena Rudd APRN-CHAITANYA [address] [place] [address] [facility] Start: 07-07-2024 COVID-19 Vaccine ( season) COVID-19 Vaccine () [facility] Start: 07-07-2024 COVID-19 Vaccine ( season) COVID-19 Vaccine () [facility] Start: 07-07-2024 Influenza vaccination Influenza Vaccine [facility] Start: 03-21-2024 Adult BMI Screening Adult BMI Screening [facility] Start: 03-21-2024 Tobacco Screening Tobacco Screening [facility] Start: 01-27-2024 Depression Screening Depression Screening [facility] Start: 01-27-2024 Fall Risk Screening Fall Risk Screening [facility] Start: 07-07-2023 Covid-19 Vaccine ( season) Covid-19 Vaccine ( season) [facility] Start: 07-07-2023 COVID-19 Vaccine () COVID-19 Vaccine ( season) [facility] Start: 07-07-2023 Influenza vaccination [facility] Start: 11-06-2022 ADVANCE DIRECTIVE DISCUSSION ADVANCE DIRECTIVE DISCUSSION [facility] Start: 11-06-2022 DEPRESSION ASSESSMENT DEPRESSION ASSESSMENT [facility] Start: 11-20-2021 COVID-19 VACCINE (4 - Pfizer series) COVID-19 VACCINE (4 - Pfizer series) [facility] Start: 01-31-2020 Abdominal aortic aneurysm screening Abdominal Aortic Aneurysm (AAA) Screen [facility] Start: 01-31-2020 Pneumococcal Vaccine: 65+ (1 - PCV) Pneumococcal Vaccine: 65+ (1 - PCV) [facility] Start: 01-31-2020 PNEUMOCOCCAL: 65+ (1 - PCV) PNEUMOCOCCAL: 65+ (1 - PCV) [facility] Start: 2015 RSV High Risk: (Elderly (60+) or Population) (1 - Risk 60-74 years 1-dose series) RSV High Risk: (Elderly (60+) or Population) (1 - Risk 60-74 years 1-dose series) [facility] Start: 2015 RSV Vaccine (1 - 1-dose 60+ series) RSV Vaccine (1 - 1-dose 60+ series) [facility] Start: 2010 PROSTATE CANCER SCREENING DISCUSSION PROSTATE CANCER SCREENING DISCUSSION [facility] Start: 2005 Administration of varicella zoster vaccine Zoster (Shingles) Vaccine (1 of 2) [facility] Start: 2005 SHINGRIX VACCINE (1 of 2) SHINGRIX VACCINE (1 of 2) [facility] Start: 2005 Zoster Vaccines (1 of 2) Zoster Vaccines (1 of 2) [facility] Start: 01-31-2000 COLOGUARD (FIT-DNA) COLOGUARD (FIT-DNA) [facility] Start: 01-31-2000 Colonoscopy COLONOSCOPY [facility] Start: 01-31-2000 COLORECTAL CANCER SCREENING COLORECTAL CANCER SCREENING [facility] Start: 01-31-[address] COLONOGRAPHY [facility] Start: 01-31-2000 DIABETES SCREEN DIABETES SCREEN [facility] Start: 01-31-2000 Diabetes Screening Diabetes Screening [facility] Start: 01-31-2000 FECAL OCCULT BLOOD FECAL OCCULT BLOOD [facility] Start: 01-31-2000 SIGMOIDOSCOPY SIGMOIDOSCOPY [facility] Start: 1977 DTaP/Tdap/Td Vaccines (1 - Tdap) DTaP/Tdap/Td Vaccines (1 - Tdap) [facility] Start: 1974 DTaP,Tdap and Td Vaccines (1 - Tdap) DTaP,Tdap and Td Vaccines (1 - Tdap) [facility] Start: 1974 Pneumococcal vaccination Pneumococcal Vaccine (1 of 2 - PCV) [facility] Start: 1974 Urine microalbumin profile [facility] Start: 1973 Adult BMI Follow Up Plan Adult BMI Follow Up Plan [facility] Start: 1973 Diabetes mellitus screening Diabetes Screening [facility] Start: 1973 HEPATITIS C SCREENING HEPATITIS C SCREENING [facility] Start: 1973 Hepatitis C screening Hepatitis C Screening [facility] Start: 1955 Lipid panel Lipid Panel [facility] Start: 1955 Medicare Annual Wellness Visit [facility] Start: 1955 Screening for malignant neoplasm of colon [facility] Immunizations Immunization Date Immunization Notes Care Provider Fa cili 10-01-2022 Covid-19, Mrna, Lnp- s, Bivalent, Pf, 30mcg/0.3 ml [facility] 10-01-2022 Seasonal, quadrivale nt, recombinant, injectable influenza vaccine, preservative free [facility] 10-01-2022 influenza virus vaccine, unspecified formulation Alonso Strong DPM Work Phone: [facility] 09-25-2021 COVID-19, mRNA, LNP- S, PF, 30mcg/0.3mL Dose [facility] 09-25-2021 Influenza, High-dose , Quadrivalent [facility] 01-07-2021 COVID-19, mRNA, LNP- S, PF, 30mcg/0.3mL Dose [facility] 12-17-2020 COVID-19, mRNA, LNP- S, PF, 30mcg/0.3mL Dose [facility] 08-12-2020 influenza, injectabl e, quadrivalent, preservative free [facility] Payers Date Payer Category Payer Self-pay 2023 Medicare (Managed Care) [facility] [id number] 2023 Unknown [id number] 2023 Medicare AN[employer]M MEDICARE AN[employer]M MEDICARE ADVANTAGE [id number] 2023-Present [phone] [id number] [place] [address] [id number] 2023 Medicare HMO [employer] MEDICARE [id number] 2023 Unknown [id number] 1955 Unknown [id number] 1955 Unknown [id number] 1955 Unknown [id number] 1955 Unknown [id number] 1955 Unknown [id number] Unknown [id number] Social History Date Type Detail Facility Tobacco smoking stat us DEIS Tobacco smoking consumption unknown [facility] Start: 06-14-2023 End: 11-27-2024 History of Social function [facility] Start: 06-14-2023 End: 11-27-2024 Area Deprivation Index [facility] National Score (1-10 0), lower number is lower risk 71 [facility] Start: 1955 Sex Assigned At Not on file [facility] Start: 01-26-2023 End: 11-27-2024 Tobacco smoking status DEIS Ex-smoker [facility] End: 11-06-1982 History of tobacco use Current smoker [facility] End: 11-06-1982 History of tobacco use Cigarette Smoker [facility] Start: 01-26-2023 End: 11-27-2024 Tobacco use and exposure Smokeless tobacco non-user [facility] Start: 03-21-2023 End: 11-27-2024 Alcohol intake Current drinker of alcohol (finding) [facility] Start: 03-21-2023 Alcohol Comment 6 a night [facility] Start: 06-11-2015 Sex Male (finding) [facility] Start: 11-17-2024 End: 11-27-2024 Exposure to SARS-CoV-2 (event) Not sure [facility] Clinical Notes 06-04-2023 to 11-27-2024 Jorden Smallwood DO - 11/27/2024 9:20 AM ESTPatient InstructionsTelephone Encounter - Minnie Walker CMA - 10/24/2024 2:16 PM ESTTelephone Encounter - Minnie Walker SALESPERSON FLOWERS - 10/24/2024 2:16 PM EST Note Date [...] mouth once daily., Disp: , Rfl: HYDROcodone-acetaminophen ([place]) 5-325 mg tablet, Take 1 tablet by [...] Rfl: Assessment/Plan 1. Coronary artery disease involving ramona coronary artery of ramona heart without angina pectoris 2. S/P PTCA (percutaneous transluminal coronary angioplasty) 3. ST elevation myocardial infarction (STEMI), unspecified artery (Multi) 4. Mixed hyperlipidemia 5. Essential hypertension 6. Acute gout, unspecified cause, unspecified site 7. BMI 32.0-32.9,adult 8. Former smoker Scribe Attestation By signing my name below, I, aNt Javed LPN Scribleigh attest that this documentation [...] discussion and plan. documented in this encounter [facility] Work Phone: 11-27-2024 Instructions Nat Lemus LPN [...] instructions on exercise. documented in this encounter [facility] Work Phone: 10-24-2024 Miscellaneous Notes Care Coordination [...] kit from col[employer]uard. documented in this encounter [facility] 10-24-2024 Telephone encounter Note Care Coordination Outreach performed to coordinate overdue appointments, testing, and/or follow-up care: Yes Audit/Outreach Date: October 24, 2024 Reason: Colorectal Cancer Screening Method: Telephone Outreach Attempt: First Outcome: Contacted Patient Next PCP Appointment: Has Next PCP Appt Tests/Referrals Pended: N/A Resources/Education Provided: Additional Comments: Patient states that he has not received his kit. Requested new kit from [employer]u[employer]. [facility] 10-08-2024 Note XR CHEST 1 VW History: Chest pain Procedure: Chest AP portable upright Comparison: none Findings: The heart and lungs show no acute findings, and the mediastinum and riley are grossly negative . No pneumothorax. Impression: No acute pulmonary process. Finalized by Darius Romero MD on 10/08/2024 9:46 AM [facility] 08-28-2023 History of Present illness Narrative TELEMEDICINE VISIT PROGRESS NOTE This is a telemedicine encounter initiated for a patient, parent or guardian not originating from a related Evaluation & Management service provided within the previous 7 days nor leading to an Evaluation & Management service or procedure within the next 24 hours or soonest available appointment. The visit was performed using [employer]. Horacio Soto has consented to this telemedicine encounter. Persons Present: patient Chief Complaint/Reason: update on crush injury to foot HPI: still painful but improved Data Reviewed: patient history Assessment: No diagnosis found. Plan: Advised WBAT. Use boot/shoe prn. ACEVEDO follow up 2 weeks or prn Total Time Spent: 5-10 minutes Alonso Strong DPM, FACFAS [facility] [address] [place] [address] W [email or web address] O F M E documented in this encounter [facility] 07-07-2023 Miscellaneous Notes The following approved [...] medication. Please advise documented in this encounter [facility] 07-05-2023 History of Present illness Narrative [...] sensation intact at all pedal sites via [place] 5.07 monofilament bilateral. Proprioception intact at [...] family, Referring and communicating with other health home day care provider, Documenting clinical information in the EMR, Independently interpreting results and communicating results to the patient, and coordinating care. Raven GARCIAM PGY2 Alonso Strong DPM documented in this encounter [facility] 06-21-2023 Miscellaneous Notes Spoke with patient's partner, she said they will opt to go somewhere close to [place] in [place]. [facility] in [place], [place] MRI order and office note were faxed to the facility and confirmation was received. [facility] Left foot/toes w/o contrast ([id number]). Approced dates: 06/21/23-07/07/23 They are requesting a copy of the results be faxed to [facility] within 5 days of the service. Called and left a detailed voicemail for the patient to schedule the MRI appointment through [facility] and call us back to make follow up. documented in this encounter [facility] 06-04-2023 Note Education Materials Cardiovascular Hypertension, [...] Keep all follow-up visits. Medicines ? Take [id number] and prescription medicines only as told by [...] work harder to (more content not included)... [facility] Evaluation note Diagnosis Injury of left foot, initial encounter documented in this encounter [facility] [place] note* Diagnosis Crushing injury of left foot, subsequent encounter- Primary documented in this [facility]* Diagnosis Injury of left foot, initial encounter- Primary documented in this encounter [facility] [place] note* Diagnosis Gout, unspecified cause, unspecified chronicity, unspecified site [facility] Diagnosis Gout, unspecified cause, unspecified chronicity, unspecified site [facility] Diagnosis Coronary artery disease involving ramona coronary artery of ramona heart without angina pectoris S/P PTCA (percutaneous transluminal coronary angioplasty) Postsurgical percutaneous transluminal coronary angioplasty status ST elevation myocardial infarction (STEMI), unspecified artery (Multi) Mixed hyperlipidemia Essential hypertension Unspecified essential hypertension Acute gout, unspecified cause, unspecified site BMI 32.0-32.9,adult Former smoker Personal history of tobacco use, presenting hazards to health documented in this encounter [facility] Work Phone: InstructionsNot on filedocumented in this encounter [facility] SystemInstructionsNot on filedocumented in this encounter [facility] Summary Purpose Family History No Family History Records FoundNo Family History Records FoundNo Family History Records FoundNo Family History Records FoundNo Family History Records Found Advance Directives No Advanced Directives Records FoundDocuments on File Type Date Recorded Patient Panama Hat Smearer Expl anation Durable Power of Faculty Criminal Justice 10/08/2024 9:42 AM POA 10/08/24 Additional Source Comments Source Comments (unrecognize d section and content) In the event this informatio n is protected by the Federal Confidentiality of Alcohol and Drug Abuse Patient Records regulations: The Federal rules restrict any use of the information to criminally investigate or prosecute any alcohol or drug abuse patient.[facility] the event this information is protected by the Federal Confidentiality of Alcohol and Drug Abuse Patient Records regulations: The Federal rules restrict any use of the information to criminally investigate or prosecute any alcohol or drug abuse patient.[facility] the event this information is protected by the Federal Confidentiality of Alcohol and Drug Abuse Patient Records regulations: The Federal rules restrict any use of the information to criminally investigate or prosecute any alcohol or drug abuse patient.[facility] Center[facility] the event this information is protected by the Federal Confidentiality of Alcohol and Drug Abuse Patient Records regulations: The Federal rules restrict any use of the information to criminally investigate or prosecute any alcohol or drug abuse patient.[facility] Reason for Visit (unrecogniz ed section and content) Reason Comments Insurance Authorization [facility] MRI LT FT Reason Comments Patient [...] DATE CREATED AUTHOR AUTHOR'S ORGANIZ ATION 10/09/2024 [facility] DATE CREATED AUTHOR AUTHOR'S ORGANIZ ATION 11/04/2024 [facility] DATE CREATED AUTHOR AUTHOR'S ORGANIZ ATION 12/08/2024 [facility] Testing Coordinator Teams (unrecognized sec tion and content) Slag Worker Relationship Specialty Start Date End Date Sandra Foster MD [address], [place] [address] PCP - General Internal Medicine 01/27/23 Slag Worker Relationship Specialty Start Date End Date Sandra Foster MD [address], [facility] [place] [address] PCP - General Internal Medicine 10/08/24 Slag Worker Relationship Specialty Start Date End Date Dorcas Levi MD [address] [place] [address] PCP - General Family Medicine 10/22/24 Juana Isaac, process area supervisorInstructor Of Spanish 10/22/24 FOR RECORDS PERTAINING TO PATIENTS WHO [...] BE BASED ON THE PRIMARY CLINICAL RECORDS. [facility] [employer] [facility]. provides no warranty or guarantee of the accuracy or completeness of information in this document.
[2024-12-10 14:07] LABS: Anion Gap 14.4; BUN Creatinine Ratio 20.4; Calcium 9.4 mg/dL (8.5-10.1); Carbon Dioxide 26.7 mmol/L (21.0-32.0); Chloride 103 mmol/L (98-107); Estimated GFR (African America >60 (>=60 mL/min/1.73m^2); Estimated GFR (Non-African Ame >60 (>=60 mL/min/1.73m^2); Glucose 99 mg/dL (74-106); Potassium 4.1 mmol/L (3.5-5.1); Sodium 140 mmol/L (136-145)
[2024-12-11 15:07] LABS: Thyroglobulin Antibody <1.0 IU/mL (0.0-0.9); Thyroid Peroxidase (TPO) Ab 10 IU/mL (0-34)
== END 2024-12-10 13:21 | disposition home or self-care (01) ==
LOC: LAB 13:21
PROVIDERS: PCP Family Medicine; Visit Provider Family Medicine
DX: R89.9 Unspecified abnormal finding in specimens from other organs, systems and tissues (principal)
CPT/HCPCS: 36415; 80048; 86376; 86800